=== PATIENT | male | born 1935 | race Caucasian/White ===

== ENCOUNTER 2018-05-09 04:19 | Inpatient (IN) | payer MEDICARE ==
[2018-05-09] VITALS (33 sets, daily range): BP systolic 89–163; BP diastolic 45–76; PULSE 91–114; RESP 12–29; TEMP 100–100.4; O2SAT 87–100
[~2018-05-09] VITALS: Ht 177.8 cm; Wt 109.4 kg
--- NOTE | 2018-05-09 04:25 | PD ---
HPI Chief Complaint: Code Blue Time Seen by Provider: 04:25 Travel History International Travel<30 days: No Contact w/Intl Traveler<30days: No Traveled to known affect area: No History of Present Illness HPI Patient was brought in by ambulance status post arrest from [facility], Combitube placed, unable to intubate, given ACLS drugs and got spontaneous ROSC and brought into [place]. No family at bedside unable to obtain any history due to condition of the patient... It is noted that the patient upon having Combitube placed had a lot of pink frothy sputum returning back into the Combitube. Although the patient seems to have been brought in from half-way I did not see list of diagnostics on this patient. Upon review of the chart that came with the patient it appears the patient has a history of dementia, rheumatoid arthritis, neuropathy, then based on medications such as timolol and latanoprost the patient is believed to have glaucoma, as well as hyper lipidemia patient also appears to have a history of skin fungal infection, is on methotrexate for the rheumatoid arthritis, the patient is also on Lunesta for insomnia, and appears to also be on a diuretic Lasix as well as potassium which leads me to believe that the patient may have a history of congestive heart failure or at least some sort of pulmonary edema or peripheral edema history for which this patient was placed on those medications by Dr. CAMARILLO [facility] Social History Tobacco Use: No (unknown due to patient condition) Allergies-Medications (Allergen,Severity, Reaction): Coded Allergies: Penicillins (Verified Allergy, Severe, 05/09/18) Reported Meds & Prescriptions Reported Meds & Active Scripts Active Reported Eszopiclone 2 Mg Tab 2 Mg PO HS PRN Buspirone (Buspirone HCl) 10 Mg Tab 20 Mg PO BID Potassium Chloride ER (Potassium Chloride) 10 Meq Tab 10 Meq PO DAILY Lasix (Furosemide) 20 Mg Tab 20 Mg PO DAILY Buspirone (Buspirone HCl) 5 Mg Tab 5 Mg PO BID PRN Methotrexate 2.5 Mg Tab 2.5 Mg PO Q7D Ketoconazole Topical 2% Cream 1 Applic TOPICAL BID Multiple Vitamin 1 Tab 1 Tab PO DAILY Memantine 10 Mg Tab 10 Mg PO BID Folic Acid 0.4 Mg Tab 1 Mg PO DAILY Timolol Opth Drops 0.5 % Soln 1 Drop EACH EYE DAILY Review of Systems ROS Limitations: Clinical Condition, Intubated Physical Exam Exam Limitations: Clinical Condition Narrative General: The patient is [status post arrest, comatose GCS of 3T-]. Head and Neck exam: Head is normocephalic atraumatic. Eyes: extraocular motion testing is unable to be accomplished as the patient arrives unresponsive, pupils are [4 mm bilaterally WITH PERRL]. Nose: Midline septum with pink mucous membranes Mouth: Dentition unremarkable. Moist mucus membranes. Posterior oropharynx is not erythematous. No tonsillar hypertrophy. Uvula midline. Airway patent with EMS Combitube in place Neck: No palpable lymphadenopathy. No nuchal rigidity. No thyromegaly. Cardiovascular: cardiac activity is auscultated. Lungs: Equal breath sounds bilaterally being assisted with [bilateral crackles-] . Abdomen: Distended obese abdomen without apparent tenderness to palpation in all 4 quadrants of the abdomen. No guarding, rebound, or rigidity. Extremities: No clubbing, cyanosis, bilateral lower extremity 2+ pitting edema edema. Neurologic Exam: The patient arrives with a GCS of [3T-]. Eyes [-1]. Motor [-1] . Verbal-1. Skin Exam: No rash noted. Intact skin that is warm and dry. Data Data Last Documented VS Vital Signs Date Time Temp Pulse Resp B/P (MAP) Pulse Ox O2 Delivery O2 Flow Rate FiO2 05/09/18 05:54 109 22 102/53 (69) 87 Ventilator 100 Orders Orders Complete Blood Count With Diff (05/09/18 04:27) Comprehensive Metabolic Panel (05/09/18 04:27) Ckmb (Isoenzyme) Profile (05/09/18 04:27) Troponin I (05/09/18 04:27) B-Type Natriuretic Peptide (05/09/18 04:27) Prothrombin Time / Inr (Pt) (05/09/18 04:27) Act Partial Throm Time (Ptt) (05/09/18 04:27) Arterial Blood Gas (Abg) (05/09/18 04:27) Lipase (05/09/18 04:27) Urinalysis - C+S If Indicated (05/09/18 04:27) Thyroid Stimulating Hormone (05/09/18 04:27) Chest, Single Ap (05/09/18 04:27) Ct Brain W/O Iv Contrast(Rout) (05/09/18 04:27) Iv Access Insert/Monitor (05/09/18 04:27) Ecg Monitoring (05/09/18 04:27) Oxygen Administration (05/09/18 04:27) Oximetry (05/09/18 04:27) Urinary Catheter Insert/Apply (05/09/18 04:27) Rafia-Gastric Tube Insert/Mon (05/09/18 04:27) Drug Screen, Random Urine (05/09/18 04:27) Alcohol (Ethanol) (05/09/18 04:27) Salicylates (Aspirin) (05/09/18 04:27) Tylenol (Acetaminophen) (05/09/18 04:27) Ct Abd/Pel W/O Iv Contrast (05/09/18 04:27) Sodium Bicarbonate 8.4% Inj (Sodium Bica (05/09/18 04:45) Propofol 1000 Mg/100 Ml Inj (Diprivan 10 (05/09/18 04:45) Dopamine 800 Mg/500 Ml Inj (Dopamine 800 (05/09/18 04:45) Terbutaline Inj (Brethine Inj) (05/09/18 04:45) Furosemide Inj (Lasix Inj) (05/09/18 05:00) Dopamine 400 Mg/250 Ml Inj (Dopamine 400 (05/09/18 04:59) CKMB (05/09/18 04:30) CKMB% (05/09/18 04:30) Admit Order (Ed Use Only) (05/09/18 06:05) Labs Laboratory Tests Test 05/09/18 04:30 05/09/18 04:50 White Blood Count 18.8 TH/MM3 Red Blood Count 3.30 MIL/MM3 Hemoglobin 11.2 GM/DL Hematocrit 36.1 % Mean Corpuscular Volume 109.5 FL Mean Corpuscular Hemoglobin 33.8 PG Mean Corpuscular Hemoglobin Concent 30.9 % Red Cell Distribution Width 16.3 % Platelet Count 284 TH/MM3 Mean Platelet Volume 9.9 FL Neutrophils (%) (Auto) 68.1 % Lymphocytes (%) (Auto) 23.2 % Monocytes (%) (Auto) 6.6 % Eosinophils (%) (Auto) 1.3 % Basophils (%) (Auto) 0.8 % Neutrophils # (Auto) 12.8 TH/MM3 Lymphocytes # (Auto) 4.4 TH/MM3 Monocytes # (Auto) 1.2 TH/MM3 Eosinophils # (Auto) 0.2 TH/MM3 Basophils # (Auto) 0.1 TH/MM3 CBC Comment AUTO DIFF Differential Total Cells Counted 100 Neutrophils % (Manual) 49 % Band Neutrophils % 18 % Lymphocytes % 22 % Monocytes % 7 % Eosinophils % 1 % Basophils % 1 % Neutrophils # (Manual) 13.0 TH/MM3 Metamyelocytes 1 % Myelocytes 1 % Differential Comment FINAL DIFF MANUAL Platelet Estimate NORMAL Platelet Morphology Comment ENLARGED Acanthocytes OCC Prothrombin Time 12.3 SEC Prothromb Time International Ratio 1.2 RATIO Activated Partial Thromboplast Time 38.3 SEC Urine Color YELLOW Urine Turbidity CLEAR Urine pH 5.0 Urine Specific [place] 1.014 Urine Protein 30 mg/dL Urine Glucose (UA) NEG mg/dL Urine Ketones TRACE mg/dL Urine Occult Blood SMALL Urine Nitrite NEG Urine Bilirubin NEG Urine Urobilinogen 2.0 mg/dL Urine Leukocyte Esterase NEG Urine RBC 1 /hpf Urine WBC 2 /hpf Urine Bacteria RARE /hpf Urine Hyaline Casts 1 /lpf Urine Granular Casts 1 /lpf Urine Mucus FEW /lpf Microscopic Urinalysis Comment CULT NOT INDICATED Blood Urea Nitrogen 23 MG/DL Creatinine 2.13 MG/DL Random Glucose 247 MG/DL Total Protein 5.6 GM/DL Albumin 2.5 GM/DL Calcium Level 8.2 MG/DL Alkaline Phosphatase 83 U/L Aspartate Amino Transf (AST/SGOT) 121 U/L Alanine Aminotransferase (ALT/SGPT) 80 U/L Total Bilirubin 0.7 MG/DL Sodium Level 141 MEQ/L Potassium Level 4.1 MEQ/L Chloride Level 105 MEQ/L Carbon Dioxide Level 14.5 MEQ/L Anion Gap 22 MEQ/L Estimat Glomerular Filtration Rate 30 ML/MIN Total Creatine Kinase 783 U/L Creatine Kinase MB 55.0 NG/ML Creatine Kinase MB % 7.0 % Troponin I 4.56 NG/ML B-Type Natriuretic Peptide 469 PG/ML Lipase 443 U/L Thyroid Stimulating Hormone 3rd Gen 3.630 uIU/ML Salicylates Level LESS THAN 1.7 MG/DL Urine Opiates Screen NEG Acetaminophen Level LESS THAN 2.0 MCG/ML Urine Barbiturates Screen NEG Urine Amphetamines Screen NEG Urine Benzodiazepines Screen NEG Urine Cocaine Screen NEG Urine Cannabinoids Screen NEG Ethyl Alcohol Level LESS THAN 3 MG/DL Blood Gas Puncture Site RT RADIAL Blood Gas Patient Temperature 98.6 Blood Gas HCO3 14 mmol/L Blood Gas Base Excess -15.4 mmol/L Blood Gas Oxygen Saturation 91 % Arterial Blood pH 6.98 Arterial Blood Partial Pressure CO2 64 mmHg Arterial Blood Partial Pressure O2 103 mmHG Arterial Blood Oxygen Content 14.9 Vol % Arterial Blood Carboxyhemoglobin 0.8 % Arterial Blood Methemoglobin 0.7 % Blood Gas Hemoglobin 11.5 G/DL Oxygen Delivery Device Y Blood Gas Inspired Oxygen 100 % [facility] Medical Decision Making Medical Screen Exam Complete: Yes Emergency Medical Condition: Yes Medical Record Reviewed: Yes Interpretation(s) EKG shows normal sinus rhythm, right bundle branch block with deep ST depressions noted on inferior lateral leads of 2 3 aVF V3 V4 V5 and V6. Without concomitant ST elevation on contralateral leads. ABG on AC 12 500 PEEP of 5 100% FiO2 showed a pH of 6.98, PCO2 of 64, PaO2 103... This is consistent with respiratory acidosis, this initial settings were set due to the patient's body habitus there was a thought of possible blue bloater COPD and did not want to cause barotrauma so instead decided for permissive hypoventilation rather than causing severe barotrauma and possible pneumothorax should this patient had been a COPD air. Once the ABG was reevaluated and noted to have respiratory acidosis with CO2 retention, the patient's parameters were changed to tidal volume of 600 and rate of 16 Differential Diagnosis MS versus bowel obstruction versus sepsis versus stroke versus intracranial hemorrhage Narrative Course Per my interpretation of the chest x-ray portable: Diffuse pulmonary edema, without pleural effusions noted, ET tube AND OG TUBE in appropriate place CBC shows leukocytosis of 18,000 however this is most likely reactive as there is no left shift No anemia however mAcrocytosis is noted Normal platelet count UA is not consistent with a UTI Coagulation profile was slightly abnormal with a PT of 12.3 INR 1.2 APTT of 38.3 Toxicology tests are all negative so far including alcohol as well as barbiturates opiates benzodiazepines and amphetamines cocaine and marijuana. Chemistry are multiple abnormalities starting with bicarb of 14 anion gap of 22 Renal insufficiency of possible chronic kidney disease, BUN of 23 creatinine of 2.13 and a GFR of 30 Glucose 247 AST 121 ALT 80 and lipase of 443 Currently awaiting troponin & beta natruretic peptide Critical Care Narrative CRITICAL CARE NOTE: With evaluation of the patient, labs, EKG, receipt of radiologic studies, administration of medications, reevaluation the patient and discussion of the patient with the admitting physicians, the total critical care time was [60] minutes. Time to perform other separately billable procedures was not included in the critical care time. Procedures Procedure Narrative The patient was put in optimal position for the procedure. Rapid sequence drugs were not necessary for intubation as the patient was post arrest. The patient was intubated with a [8CM] cuffed endotracheal tube. Tube placement was confirmed by visualization of the tube and balloon passing through the cords , capnometry and subsequent chest x-ray. Breath sounds were equal and well aerated bilaterally postintubation. No breath sounds over stomach. Approximately 22 cm at the lip Diagnosis Primary Impression: Status post cardiopulmonary arrest Additional Impressions: Status post intubation Severe congestive heart failure Admitting Information Admitting Physician Requests: Admit Cesar Napoles MD May 09, 2018 04:25
[2018-05-09] MEDS ORDERED: TERBUTALINE INJ 1 MG/ML AMP SQ PRN ×2 (04:45→11:30)
[2018-05-09] MEDS ORDERED: SODIUM BICARBONATE 8.4% INJ 50 MEQ/50 ML SYR IV PUSH ONE ×2 (04:45→06:30)
[2018-05-09] MEDS ORDERED: FOLI400T PO (04:55)
[2018-05-09] MEDS ORDERED: MULTTAB67 PO (04:55)
[2018-05-09] MEDS ORDERED: BUSP10TA PO (04:55)
[2018-05-09] MEDS ORDERED: MEMA1TAB2 PO (04:55)
[2018-05-09] MEDS ORDERED: ESZO1TAB3 PO (04:55)
[2018-05-09] MEDS ORDERED: KETO2CRE TOPICAL (04:55)
[2018-05-09] MEDS ORDERED: METH2.5T PO (04:55)
[2018-05-09] MEDS ORDERED: POTA10TA2 PO (04:55)
[2018-05-09] MEDS ORDERED: TIMO0.5S30 EACH EYE (04:55)
[2018-05-09] MEDS ORDERED: BUSP5TAB PO (04:55)
[2018-05-09] MEDS ORDERED: FURO1TAB62 PO (04:55)
[2018-05-09] MEDS: PROPOFOL 1000 MG/100 ML INJ 100 ML IV PRN ×3 (04:59→18:17)
[2018-05-09] MEDS ORDERED: DOPamine 400 MG/250 ML INJ 250 ML ONE (04:59)
--- NOTE | 2018-05-09 04:59 | RADRPT ---
EXAM DATE: 05/09/2018 4:52 AM EDT AGE/SEX: 82 years / Male INDICATIONS: Status post intubation. Shortness of breath. CLINICAL DATA: This is the patient's initial encounter. Patient reports that signs and symptoms have been present for 1 day and indicates a pain score of Nonresponsive. MEDICAL/SURGICAL HISTORY: Non-responsive. Non-responsive. COMPARISON: No prior exams available for comparison. FINDINGS: A single AP semierect portable view of the chest was obtained and demonstrates an endotracheal tube i n place with the tip approximately 3 cm above the alba. A nasogastric tube is seen coursing through the esophagus and into the stomach. Hazy perihilar and bibasilar opacities are present. The heart si ze is mildly prominent. There is no distinct effusion. The bony thorax is intact. CONCLUSION: 1. By lateral perihilar and bibasilar opacities most characteristic of pulmonary edema which may be cardiogenic or noncardiogenic in origin. 2. The patient is intubated and nasogastric tube is in place. Electronically signed by: Noah Barry MD 05/09/2018 4:58 AM EDT
[2018-05-09] MEDS ORDERED: FUROSEMIDE 100 MG/10 ML VIAL IV PUSH ONE (05:00)
[2018-05-09 05:04] LABS: AUTOMATED NEUTROPHIL # 12.8 TH/MM3 (1.8-7.7); BASOPHIL # 0.1 TH/MM3 (0-0.2); BASOPHIL % 0.8 % (0.0-2.0); EOSINOPHIL # 0.2 TH/MM3 (0-0.4); EOSINOPHIL % 1.3 % (0.0-4.0); HEMATOCRIT 36.1 % (39.0-51.0); HEMOGLOBIN 11.2 GM/DL (13.0-17.0); LYMPH % 23.2 % (9.0-44.0); LYMPHOCYTE # 4.4 TH/MM3 (1.0-4.8); MEAN CELL VOLUME 109.5 FL (80.0-100.0); MEAN CORPUSCULAR HEMOGLOBIN 33.8 PG (27.0-34.0); MEAN CORPUSCULAR HGB CONC 30.9 % (32.0-36.0); MEAN PLATELET VOLUME 9.9 FL (7.0-11.0); MONO % 6.6 % (0.0-8.0); MONOCYTE # 1.2 TH/MM3 (0-0.9); NEUT % 68.1 % (16.0-70.0); PLATELET COUNT 284 TH/MM3 (150-450); RED CELL DISTRIBUTION WIDTH 16.3 % (11.6-17.2); WHITE BLOOD COUNT 18.8 TH/MM3 (4.0-11.0)
[2018-05-09] MEDS: DOPamine 800 MG/500 ML INJ 500 ML IV PRN ×3 (05:05→16:04)
[2018-05-09 05:16] LABS: INTERNATIONAL NORMALIZED RATIO 1.2 RATIO; PROTHROMBIN TIME - PATIENT 12.3 SEC (9.8-11.6)
[2018-05-09 05:17] LABS: BACTERIA, URINE RARE /hpf; BILIRUBIN, URINE NEG (NEG); BLOOD, URINE SMALL (NEG); GLUCOSE,URINE NEG (NEG); HYALINE CAST, URINE 1 /lpf (RARE); KETONE, URINE TRACE mg/dL (NEG); MUCUS URINE FEW /lpf (OCC); NITRITE,URINE NEG (NEG); URINE COLOR YELLOW (YELLW/STRAW); URINE LEUKOCYTE ESTERASE NEG (NEG)
[2018-05-09 05:20] LABS: ALBUMIN 2.5 GM/DL (3.4-5.0); ALT (GPT) 80 U/L (12-78); AST (GOT) 121 U/L (15-37); BICARBONATE 14.5 MEQ/L (21.0-32.0); BLOOD UREA NITROGEN 23 MG/DL (7-18); CALCIUM 8.2 MG/DL (8.5-10.1); CHLORIDE 105 MEQ/L (98-107); CREATININE 2.13 MG/DL (0.60-1.30); GLOMERULAR FILTRATION RATE 30 ML/MIN (>89); GLUCOSE,RANDOM 247 MG/DL (74-106); SODIUM (NA) 141 MEQ/L (136-145)
[2018-05-09 05:29] LABS: ACETAMINOPHEN LESS THAN 2.0 MCG/ML (10.0-30.0); ALKALINE PHOSPHATASE 83 U/L (45-117); TOTAL BILIRUBIN ADULT 0.7 MG/DL (0.2-1.0); TOTAL PROTEIN 5.6 GM/DL (6.4-8.2)
[2018-05-09 05:45] LABS: TROPONIN I 4.56 NG/ML (0.02-0.05)
[2018-05-09 06:10] LABS: BANDS 18 % (0-6); BASOPHILS 1 % (0-2); LYMPHOCYTES 22 % (9-44); METAMYELOCYTES 1 % (0-1); MONOCYTES 7 % (0-8); MYELOCYTES 1 % (0-0); POLYS (SEG NEUTROPHILS) 49 % (16-70)
[2018-05-09 06:12] LABS: ACANTHOCYTES OCC (NORMAL)
[2018-05-09] MEDS ORDERED: LORazepam 2 MG/ML VIAL IV PUSH ONE ×2 (06:15→06:30)
[2018-05-09] MEDS ORDERED: CHLORHEXIDINE GLUCONATE 2 % 1 PACK (2 CLOTHS) TOP PRN (06:45)
[2018-05-09] MEDS ORDERED: levETIRAcetam INJ 100 ML IV ONE (06:45)
[2018-05-09] MEDS ORDERED: NURSING INFORMATION XX SCH (06:45)
[2018-05-09] MEDS ORDERED: Vancomycin Consult Pharmacy 1 EA OTHER SCH (06:45)
--- NOTE | 2018-05-09 07:09 | HHI.HP ---
HPI Service Critical Care Medicine Primary Care Physician Unknown Admission Diagnosis S/P ARREST W/ROSC, SEVERE CHF, S/P INTUBATION, NONSTEMI Diagnosis: Chief Complaint: Post cardiac arrest Travel History International Travel<30 Days: No Contact w/Intl Traveler <30 Da: No Traveled to Known Affected Are: No History of Present Illness 82-year-old gentleman, alf resident, now brought in post cardiac arrest. History is very limited and is obtained mostly from ER chart patient is intubated, sedated, unresponsive and there is no family present at bedside. Per report patient had PEA/asystolic arrest in the alf. It is unclear how long was the downtime. Patient underwent ACLS protocol and received received 4 epinephrine. Intubation was attempted in the field but it was unsuccessful therefore Combitube was placed. In ER patient was endotracheally intubated and upon intubation pink frothy were observed. He became hypotensive requiring dopamine. Patient was started on propofol and he was given so far 2 mg of Ativan for seizure-like activity, Lasix 80 mg 1 and 1 bicarb. [facility] is now consulted for ICU admission. Patient was seen in ED, sedated and intubated , currently displaying generalized tonic-clonic movements consistent with seizure versus myoclonus. No family present at bedside. Patient is currently on dopamine at 5, propofol at 10. Review of Systems ROS Limitations: Intubated, Unresponsive Past Family Social History Allergies: Coded Allergies: Penicillins (Verified Allergy, Severe, 05/09/18) Past Medical History Unobtainable, patient is intubated Based on ED chart RA, dementia, glaucoma, possible CHF Past Surgical History Unobtainable, patient is intubated Reported Medications Reported Meds & Active Scripts Active Reported Eszopiclone 2 Mg Tab 2 Mg PO HS PRN Buspirone (Buspirone HCl) 10 Mg Tab 20 Mg PO BID Potassium Chloride ER (Potassium Chloride) 10 Meq Tab 10 Meq PO DAILY Lasix (Furosemide) 20 Mg Tab 20 Mg PO DAILY Buspirone (Buspirone HCl) 5 Mg Tab 5 Mg PO BID PRN Methotrexate 2.5 Mg Tab 2.5 Mg PO Q7D Ketoconazole Topical 2% Cream 1 Applic TOPICAL BID Multiple Vitamin 1 Tab 1 Tab PO DAILY Memantine 10 Mg Tab 10 Mg PO BID Folic Acid 0.4 Mg Tab 1 Mg PO DAILY Timolol Opth Drops 0.5 % Soln 1 Drop EACH EYE DAILY Active Ordered Medications Current Medications Medications (Trade) Dose Ordered Sig/Yasmeen Route Start Time Stop Time Status Last Admin Propofol 100 ml @ 0 mls/hr TITRATE PRN IV 05/09/18 04:45 05/09/18 04:59 Dopamine HCl/ Dextrose 500 ml @ 0 mls/hr TITRATE PRN IV 05/09/18 04:45 05/09/18 05:05 (Brethine Inj) 1 mg UNSCH PRN SQ 05/09/18 04:45 Sodium Bicarbonate 150 meq/Dextrose 1,150 ml @ 100 mls/hr [id number] IV 05/09/18 08:00 Pharmacy Profile Note 0 ml @ 0 mls/hr UNSCH OTHER 05/09/18 06:45 Aztreonam 1000 mg/ Sodium Chloride 100 ml @ 200 mls/hr Q12H IV 05/09/18 08:00 Metronidazole 100 ml @ 100 mls/hr Q8H IV 05/09/18 08:00 Levetriacetam 500 mg/Sodium Chloride 105 ml @ 420 mls/hr Q12H IV 05/09/18 18:00 (Pepcid Inj) 20 mg DAILY IV PUSH 05/09/18 09:00 (Tears Naturale Opth Soln) 1 drop TID EACH EYE 05/09/18 09:00 (Duoneb Neb) 1 ampule Q4HR NEB INH 05/09/18 08:00 ([facility] [place] [facility] 1 [id number] XX 05/09/18 06:45 (Chlorhexidine 2% Cloth) 3 pack Taper DAILY@04 TOP 05/10/18 04:00 05/06/19 03:59 (Chlorhexidine 2% Cloth) 3 pack UNSCH PRN TOP 05/09/18 06:45 (Peridex 0.12% Liq) 15 ml BID@08,20 MT 05/09/18 08:00 Vancomycin HCl 1720 mg/Sodium Chloride 517.2 ml @ 250 mls/hr ONCE ONCE IV 05/09/18 09:00 05/09/18 11:04 Family History Unobtainable, patient is intubated Social History Unobtainable, patient is intubated Physical Exam Vital Signs Vital Signs Date Time Temp Pulse Resp B/P (MAP) Pulse Ox O2 Delivery O2 Flow Rate FiO2 05/09/18 06:56 107 24 99/53 (68) 94 Ventilator 100 05/09/18 06:38 98 100 05/09/18 06:34 114 23 98/54 (69) 99 Ventilator 100 05/09/18 06:20 111 20 105/45 (65) 93 Ventilator 100 05/09/18 05:54 109 22 102/53 (69) 87 Ventilator 100 05/09/18 05:50 88 100 05/09/18 05:44 106 22 104/51 (68) 88 Ventilator 100 05/09/18 05:23 100 05/09/18 05:20 102 22 120/59 (79) 94 Ventilator 100 05/09/18 05:09 104 16 125/60 (81) 96 Ventilator 100 05/09/18 05:05 95 100 05/09/18 05:05 106 131/62 05/09/18 04:42 100 05/09/18 04:39 12 95 Ventilator 100 05/09/18 04:39 95 Ventilator 100 05/09/18 04:38 98 16 159/75 (103) 95 Ventilator 100 05/09/18 04:30 97 12 98 Room Air 05/09/18 04:23 93 14 163/76 (105) 95 05/09/18 04:21 95 100 Physical Exam General: Elderly gentleman, intubated and sedated, unresponsive, ill-appearing HEENT: Pupils equal, sluggishly reactive, sclerae anicteric, neck supple, no nuchal rigidity, neck veins distended, orally intubated CV: Regular S1, S2, no murmurs Chest: Coarse breath sounds b/l, good air entry, no wheezes Abdomen: Soft, appears non-tender, non-distended, BS present Skin: No rashes, no cyanosis Extremities: Warm, 2+ edema, + peripheral pulses, no clubbing Neuro: Intubated and sedated, unresponsive, no grimacing to pain, pupils equal and sluggishly reactive, displaying tonic-clonic movements Laboratory Laboratory Tests Test 05/09/18 04:30 05/09/18 04:50 05/09/18 06:40 05/09/18 06:55 White Blood Count 18.8 Red Blood Count 3.30 Hemoglobin 11.2 Hematocrit 36.1 Mean Corpuscular Volume 109.5 Mean Corpuscular Hemoglobin 33.8 Mean Corpuscular Hemoglobin Concent 30.9 Red Cell Distribution Width 16.3 Platelet Count 284 Mean Platelet Volume 9.9 Neutrophils (%) (Auto) 68.1 Lymphocytes (%) (Auto) 23.2 Monocytes (%) (Auto) 6.6 Eosinophils (%) (Auto) 1.3 Basophils (%) (Auto) 0.8 Neutrophils # (Auto) 12.8 Lymphocytes # (Auto) 4.4 Monocytes # (Auto) 1.2 Eosinophils # (Auto) 0.2 Basophils # (Auto) 0.1 CBC Comment AUTO DIFF Differential Total Cells Counted 100 Neutrophils % (Manual) 49 Band Neutrophils % 18 Lymphocytes % 22 Monocytes % 7 Eosinophils % 1 Basophils % 1 Neutrophils # (Manual) 13.0 Metamyelocytes 1 Myelocytes 1 Differential Comment FINAL DIFF MANUAL Platelet Estimate NORMAL Platelet Morphology Comment ENLARGED Acanthocytes OCC Prothrombin Time 12.3 Prothromb Time International Ratio 1.2 Activated Partial Thromboplast Time 38.3 Urine Color YELLOW Urine Turbidity CLEAR Urine pH 5.0 Urine Specific [place] 1.014 Urine Protein 30 Urine Glucose (UA) NEG Urine Ketones TRACE Urine Occult Blood SMALL Urine Nitrite NEG Urine Bilirubin NEG Urine Urobilinogen 2.0 Urine Leukocyte Esterase NEG Urine RBC 1 Urine WBC 2 Urine Bacteria RARE Urine Hyaline Casts 1 Urine Granular Casts 1 Urine Mucus FEW Microscopic Urinalysis Comment CULT NOT INDICATED Blood Urea Nitrogen 23 Creatinine 2.13 Random Glucose 247 Total Protein 5.6 Albumin 2.5 Calcium Level 8.2 Alkaline Phosphatase 83 Aspartate Amino Transf (AST/SGOT) 121 Alanine Aminotransferase (ALT/SGPT) 80 Total Bilirubin 0.7 Sodium Level 141 Potassium Level 4.1 Chloride Level 105 Carbon Dioxide Level 14.5 Anion Gap 22 Estimat Glomerular Filtration Rate 30 Total Creatine Kinase 783 Creatine Kinase MB 55.0 Creatine Kinase MB % 7.0 Troponin I 4.56 B-Type Natriuretic Peptide 469 Lipase 443 Thyroid Stimulating Hormone 3rd Gen 3.630 Salicylates Level LESS THAN 1.7 Urine Opiates Screen NEG Acetaminophen Level LESS THAN 2.0 Urine Barbiturates Screen NEG Urine Amphetamines Screen NEG Urine Benzodiazepines Screen NEG Urine Cocaine Screen NEG Urine Cannabinoids Screen NEG Ethyl Alcohol Level LESS THAN 3 Blood Gas Puncture Site RT RADIAL Blood Gas Patient Temperature 98.6 Blood Gas HCO3 14 Blood Gas Base Excess -15.4 Blood Gas Oxygen Saturation 91 Arterial Blood pH 6.98 Arterial Blood Partial Pressure CO2 64 Arterial Blood Partial Pressure O2 103 Arterial Blood Oxygen Content 14.9 Arterial Blood Carboxyhemoglobin 0.8 Arterial Blood Methemoglobin 0.7 Blood Gas Hemoglobin 11.5 Oxygen Delivery Device Y Blood Gas Inspired Oxygen 100 Result Diagram: 05/09/1842905/09/18429 Imaging Last Impressions Chest X-Ray 05/09/18426 Signed Impressions: CONCLUSION: 1. By lateral perihilar and bibasilar opacities most characteristic of pulmona ry edema which may be cardiogenic or noncardiogenic in origin. 2. The patient is intubated and nasogastric tube is in place. Caprini VTE Risk Assessment Caprini VTE Risk Assessment: Mod/High Risk (score >= 2) Caprini Risk Assessment Model Point Value = 1 Point Value = 2 Point Value = 3 Point Value = 5 Age 41-60 Minor surgery BMI > 25 kg/m2 Swollen legs Varicose veins or History of unexplained or recurrent spontaneous Oral contraceptives or hormone replacement Sepsis (< 1 month) Serious lung disease, including pneumonia (< 1 month) Abnormal pulmonary function Acute myocardial infarction Congestive heart failure (< 1 month) History of inflammatory bowel disease Medical patient at bed rest Age 61-74 Arthroscopic surgery Major open surgery (> 45 min) Laparoscopic surgery (> 45 min) Malignancy Confined to bed (> 72 hours) Immobilizing plaster cast Central venous access Age >= 75 History of VTE Family history of VTE Factor V Leiden Prothrombin [id number] Lupus anticoagulant Anticardiolipin antibodies Elevated serum homocysteine Heparin-induced thrombocytopenia Other congenital or acquired thrombophilia Stroke (< 1 month) Elective arthroplasty Hip, pelvis, or leg fracture Acute spinal cord injury (< 1 month) Prophylaxis Regimen Total Risk Factor Score Risk Level Prophylaxis Regimen 0-1 Low Early ambulation 2 Moderate Order ONE of the following: *Sequential Compression Device (SCD) *Heparin 5000 units SQ BID 3-4 Higher Order ONE of the following medications: *Heparin 5000 units SQ TID *Enoxaparin/Lovenox 40 mg SQ daily (WT < 150 kg, CrCl > 30 mL/min) *Enoxaparin/Lovenox 30 mg SQ daily (WT < 150 kg, CrCl > 10-29 mL/min) *Enoxaparin/Lovenox 30 mg SQ BID (WT < 150 kg, CrCl > 30 mL/min) AND/OR *Sequential Compression Device (SCD) 5 or more Highest Order ONE of the following medications: *Heparin 5000 units SQ TID (Preferred with Epidurals) *Enoxaparin/Lovenox 40 mg SQ daily (WT < 150 kg, CrCl > 30 mL/min) *Enoxaparin/Lovenox 30 mg SQ daily (WT < 150 kg, CrCl > 10-29 mL/min) *Enoxaparin/Lovenox 30 mg SQ BID (WT < 150 kg, CrCl > 30 mL/min) AND *Sequential Compression Device (SCD) Assessment and Plan Assessment and Plan 1. Post cardiac arrest with successful ROSC -unclear what was the down time 2. Acute hypoxic and hypercapnic respiratory failure 3. Circulatory shock 4. Probable pulmonary edema 5. Acute AG metabolic acidosis and respiratory acidosis 6. Non STEMI 7. Leukocytosis, need to rule out source of infection 8. Acute encephalopathy with concern for anoxic injury note displaying generalized tonic-clonic movements, suspect myoclonus versus seizure 9. Elevated liver enzymes 10. CONNOR 11. History of dementia 1. Admit to ICU 2. Place central line. Check CVP and CVO2 3. Stop dopamine and start norepinephrine, titrate to keep map above 65 4. Continue PRVC, decreased volume to 500 increased respiratory rate 20 and repeat ABG in 30 minutes 5. Vent bundle and bronchodilators 6. Additional lorazepam and load with Keppra 1000 mg followed by 500 every [address] head 8. EEG 9. Serial cardiac enzymes and echocardiogram 10. Cardiology consult 11. If CT head negative we will start aspirin 12. UA and blood cultures sent. Send sputum culture. Start broad-spectrum antibiotics with Vanco, aztreonam and metronidazole. Patient is allergic to penicillin, unknown reaction 13. Additional bicarb push being given now. Start bicarb drip. Nephrology consult for possible CRRT 14. N.p.o. 15. GI prophylaxis with famotidine 16. DVT prophylaxis with SCDs and heparin if CT head negative I spent 50 minutes of critical care time, excluding procedures, managing ventilator, pressors, antibiotics, severe acidosis, ordering labs and reviewing data, discussing with nursing staff. No family present at bedside. Prognosis is poor. Addendum: Patient was seen multiple times throughout the morning, with worsening hypotension, on Dopamine at 17. Patient still with seizure like activity despite additional lorazepam and Keppra. EEG was done. Patient was given additional ativan, propofol drip was increased to 50, midazolam drip was added and fosphenytoin loading was ordered. Emergent arterial line and central line were placed. Norepinephrine was started and dopamine is currently being weaned off. ABG and troponin were ordered, CT head was reviewed, aspirin was added to treatment. No statin due to liver inefficiency and no BB due to shock. CXR post line placement is currently pending. I discussed in detail patient's critical condition at bedside with patient's daughter and POA. Based on patient's prior wishes expressed to her, he would not want to be resuscitated in case his heart stops again. We will comply to patient's wishes expressed by his daughter and place an alternative code order. We discussed about continuing aggressive measures for now and she agrees. I spent an additional 45 minutes of critical care time, excluding procedures, managing life threatening hypoxia, shock, status epilepticus. Jose Webb MD May 09, 2018 07:09
[2018-05-09] MEDS: RESP: ALBUTEROL 2.5 MG/IPRATROPIUM 0.5 MG NEB (SCH) INH ×5 (07:32→23:48)
[2018-05-09 07:41] LABS: LACTIC ACID SEPSIS PROTOCOL 8.4 mmol/L (0.4-2.0)
[2018-05-09] MEDS: CHLORHEXIDINE 0.12% (ORAL KIT) 15 ML CUP MT SCH ×2 (08:00→20:00)
[2018-05-09] MEDS ORDERED: SODIUM BICARBONATE 8.4% INJ 150 MEQ in DEXTROSE 5% IN WATE 1000ML INJ 1,000 ML IV SCH ×2 (08:00)
[2018-05-09] MEDS: AZTREONAM INJ 1,000 MG in SODIUM CHLORIDE 0.9% INJ 100 ML IV SCH ×2 (08:11→21:04)
[2018-05-09] MEDS: metroNIDAZOLE 500 MG INJ 100 ML IV SCH ×3 (08:40→23:34)
[2018-05-09] MEDS: FAMOTIDINE 20 MG/2 ML VIAL IV PUSH SCH (08:41)
[2018-05-09] MEDS: ARTIFICIAL TEARS OPTH SOLN 15 ML BTL EACH EYE SCH ×3 (09:00→18:00)
[2018-05-09] MEDS ORDERED: VANCOMYCIN IV ONE (09:00)
[2018-05-09] MEDS ORDERED: SODIUM CHLORID 0.9% IV ONE (09:00)
--- NOTE | 2018-05-09 09:16 | EKG ---
Date Performed: 05/09/2018 Time Performed: 04:32:52 PTAGE: 82 years EKG: Sinus rhythm RIGHT BUNDLE BRANCH BLOCK MARKED ST DEPRESSION, CONSIDER SUBENDOCARDIAL INJURY ABNORMAL ECG NO PREVIOUS TRACING DOCTOR: Ananda Peter Interpretating Date/Time 05/09/2018 09:13:44
--- NOTE | 2018-05-09 09:37 | MB ---
cc: Dayo Huynh MD DATE: 05/09/2018 REASON FOR CONSULTATION: Elevated troponin, status post arrest. HISTORY OF PRESENT ILLNESS: When I arrived at the bedside, the daughter was there. She was able to tell me the patient has a history of Alzheimer's dementia. His just 6 weeks ago. He also carries a diagnosis of congestive heart failure. She is not aware of him ever having a heart cath, bypass, stent before. She was just walking on the beach with him a few days ago. The patient has expressed wishes to her to not have aggressive therapy. She had just moved him to [facility] about a month ago. He has not established care with any licensed psychologist manager in [place]. The patient was brought in status post cardiac arrest with successful resuscitation. The patient is unresponsive and it looks as if he is seizing so no history can be obtained from him. PAST MEDICAL HISTORY: Beside CHF and Alzheimer's, includes glaucoma, rheumatoid arthritis, neuropathy. ALLERGIES: INCLUDE PENICILLIN. PHYSICAL EXAMINATION: GENERAL: Reveals an elderly white male. VITAL SIGNS: Charted. GENERAL: His eyes are rolled back. It looks like he is having intermittent seizure movements and is being treated for seizures currently. He is completely unresponsive. HEENT: Unremarkable. NECK: No rigidity. No carotid bruits. CHEST: Shows bilateral rales. CARDIAC: S1, S2. Regular rate and rhythm. Suspect an S3 gallop. ABDOMEN: Distended. No guarding. EXTREMITIES: Reveal 2+ pitting edema. LABORATORY DATA: EKG shows sinus rhythm, right axis deviation, right bundle branch block and a diffuse, severe ST depression suggesting global ischemia. His cardiac enzymes are clearly elevated. white count is elevated with a left shift. Creatinine is elevated at 2.13. Chest x-ray showing pulmonary edema. ASSESSMENT AND PLAN: An 82-year-old elderly male with history of congestive heart failure and Alzheimer's, status post cardiac arrest with severe anoxic encephalopathy, seizures, a severely abnormal electrocardiogram, non-ST elevation myocardial infarction, pulmonary edema, renal insufficiency. RECOMMENDATIONS: In speaking to the daughter, Steffany, she conveys that the patient would not want to be resuscitated and wants to have him made a DNR. Prognosis is poor. The patient has already received IV diuretics and is being moved to ICU. I would not expect the patient to survive this event and she does not want aggressive measures taken. The predictive maintenance specialist will be managing. At this point, I will be available as needed. MD JORGE Moura/CELESTINO , 09:14 AM , 09:35 AM
[2018-05-09] MEDS ORDERED: LORazepam 2 MG/ML VIAL ONE (10:12)
--- NOTE | 2018-05-09 10:35 | RADRPT ---
EXAM DATE: 05/09/2018 10:29 AM EDT AGE/SEX: 82 years / Male INDICATIONS: Altered mental status, post cardiac arrest. CLINICAL DATA: This is the patient's initial encounter. Patient reports that signs and symptoms have been present for 1 day and indicates a pain score of Nonresponsive. MEDICAL/SURGICAL HISTORY: Non-responsive. Non-responsive. RADIATION DOSE: 63.56 CTDI (mGy) ; Patient motion COMPARISON: No prior exams available for comparison. TECHNIQUE: CT of the head without contrast. Using automated exposure control and adjustment of the mA and/or kV according to patient size, radiation dose was kept as low as reasonably achievable to ob tain optimal diagnostic quality images. Moderate motion artifact. FINDINGS: There is central and cortical atrophy with dilatation of ventricular and sulcal spaces. There is no parenchymal hemorrhage, acute infarction or mass lesion identified. There are no extra-axial fluid c ollections appreciated. Periventricular white matter changes are noted. The posterior fossa is unrem arkable with midline fourth ventricle. The portion of the orbits and paranasal sinuses visualized are unremarkable. CONCLUSION: Atrophy, with moderate motion artifact otherwise negative for an acute process. Juanjo Rodriguez MD FACR Electronically signed by: Juanjo Rodriguez MD 05/09/2018 10:33 AM EDT
--- NOTE | 2018-05-09 10:37 | RADRPT ---
EXAM DATE: 05/09/2018 10:32 AM EDT AGE/SEX: 82 years / Male INDICATIONS: Distended abdomen following cardiac arrest. CLINICAL DATA: This is the patient's initial encounter. Patient reports that signs and symptoms have been present for 1 day and indicates a pain score of Nonresponsive. MEDICAL/SURGICAL HISTORY: Non-responsive. Non-responsive. RADIATION DOSE: 16.37 CTDI (mGy) COMPARISON: No prior exams available for comparison. TECHNIQUE: Multiple contiguous axial images were obtained through the abdomen. Images were obtained using multiple row detector helical technique. Using dose reduction techniques, radiation dose was ke pt as low as reasonably achievable to obtain optimal diagnostic quality images. FINDINGS: Moderate bibasilar parenchymal changes with consolidation and airspace disease in the right lung. Moderate compensated cardiomegaly The liver is free of focal defects Large gallstone in neck of the gallbladder and gallbladder wall thickening Spleen pancreas adrenals and kidneys are unremarkable Moderate gaseous distention of both large and small bowel. There is no free air In the pelvis are scattered diverticuli in the sigmoid colon. There are no inflammatory changes evident Moderate vascular calcifications are noted. CONCLUSION: 1. Bibasilar parental changes developing airspace disease right lung 2. There is no pneumothorax 3. Moderate gaseous distention of probably: Without obstruction. 4. There are no inflammatory changes in the abdomen 5. Gallstone, neck of the gallbladder gallbladder wall thickening Electronically signed by: Juanjo Rodriguez MD 05/09/2018 10:35 AM EDT
[2018-05-09] MEDS: NOREPINEPHRINE-DEXTROSE DRIP 250 ML IV PRN ×4 (10:45→22:37)
[2018-05-09] MEDS ORDERED: VANCOMYCIN 1,000 MG/NS 250 ML IV ONE ×2 (11:00)
[2018-05-09] MEDS ORDERED: FOSPHENYTOIN INJ 1,500 MGPE in SODIUM CHLORIDE 0.9% INJ 100 ML IV ONE (11:30)
[2018-05-09] MEDS ORDERED: MIDAZOLAM 100 MG/100 ML INJ 100 ML IV PRN (11:30)
--- NOTE | 2018-05-09 11:57 | PD.PROCEDR ---
Procedure Note Procedure Procedure: Arterial Line Placement Diagnosis: Circulatory shock Indications: Hypotension Consent: Not obtained since the procedure was emergent Description of the Procedure: The right radial area was prepped and draped sterilely. 1% lidocaine was used for local anesthesia. The pulse was located and a needle was advanced into the artery. An arterial catheter was advanced into the artery using a modified Seldinger technique. The catheter was sutured to the skin and a sterile dressing was applied. The catheter was connected to a pressure transducer and an arterial waveform was noted. There were no immediate complications noted. There was minimal EBL. I personally performed the procedure. Jose Webb MD May 09, 2018 11:57
[2018-05-09] MEDS ORDERED: ASPIRIN 81 MG CHEW TAB NG ONE (12:00)
--- NOTE | 2018-05-09 12:40 | RADRPT ---
EXAM DATE: 05/09/2018 12:32 PM EDT AGE/SEX: 82 years / Male INDICATIONS: Post central line placement. CLINICAL DATA: This is the patient's subsequent encounter. Patient reports that signs and symptoms h ave been present for 3 days and indicates a pain score of Nonresponsive. MEDICAL/SURGICAL HISTORY: Cardiovascular disease. Non-responsive. COMPARISON: [facility] – [place], CHEST SINGLE AP, 05/09/2018. . FINDINGS: The support devices remain in place. There is a new right-sided central line which appears to be in g ood position. There is no pneumothorax. There continues to be diffuse prominent interstitial and airs pace pulmonary infiltrates without significant change compared to the prior examination. The heart si ze is stable. No significant pleural effusions are demonstrated. CONCLUSION: 1. Right-sided central line in place. No pneumothorax. 2. There continues to be bilateral interstitial and airspace pulmonary infiltrates. Electronically signed by: Turner Gamboa MD 05/09/2018 12:39 PM EDT
[2018-05-09] MEDS: SODIUM CHLOR 0.9% 1000 ML INJ 1,000 ML IV SCH (13:06)
--- NOTE | 2018-05-09 13:20 | PD.CONS ---
Consult Service Palliative Care . Consult Requested By Dr. Webb . Primary Care Physician Unknown . Reason for Consultation a. To assist with evaluation and management of symptoms including: Encephalopathy b. To assist medical decision maker(s) with: better understanding of current medical conditions; weighing benefits/burdens of medical treatment options; making medical treatment decisions. . HPI History of Present Illness Mr. Meeks is a 82-year-old male [place] resident who presented to [facility] ED on 05/09/2018 status post PEA/asystole arrest. The length of downtime is unknown. Patient underwent ACLS protocol, receiving epi 4. Attempts to intubate in the field were unsuccessful, therefore a Combitube was placed with pink frothy sputum noted. Upon arrival to the ED the patient was intubated. The patient became hypotensive and was started on dopamine. An arterial and central line were placed. Additional diagnostic data: * Vital signs: Pulse 93, respirations 14, BP 163/76, oxygen saturation 95% on mechanical ventilation with FiO2 of 100%. * WBC: 18.8, hemoglobin 11.2, hematocrit 36.1, platelets 284, neutrophils 68.1% * Sodium: 141, potassium 4.1, chloride 105, glucose 247, calcium 8.2 * BUN: 23, creatinine 2.13, GFR 30 * Total bilirubin: 0.7, AST 121, ALT 80, alkaline phosphatase 83 * Total creatine kinase: 783 * CK-MB: 55.0 * CK-MB%: 7.0 * BNP was elevated at 469 * Troponin level elevated at 4.56. * Total protein: 5.6, albumin 2.5 * PT: 12.3, INR 1.2, APTT 38.3 * Urinalysis not consistent with UTI * Sputum culture pending * EKG shows sinus rhythm, right axis deviation, right bundle branch block and a diffuse, severe ST depression suggesting global ischemia * CT abdomen/pelvis showing moderate bibasilar parenchymal changes with consolidation and airspace disease in the right lung; moderate compensated cardiomegaly. There is no pneumothorax. Moderate gaseous distention of the large and small bowel without obstruction. There are no inflammatory changes in the abdomen. * Chest x-ray showing pulmonary edema * CT head revealed atrophy, with moderate motion artifact otherwise negative for an acute process. Patient displaying generalized tonic-clonic movements consistent with seizures versus myoclonus. Received Ativan for seizure-like activity; Lasix 80 mg 1; bicarb 1. He was was admitted to critical care services and transferred to the ICU status post cardiac arrest with severe anoxic encephalopathy, seizures, severely abnormal electrocardiogram, non-ST elevation myocardial infarction, pulmonary edema and renal insufficiency. Patient recently moved to [place]; his just 6 weeks ago. Cardiology was consulted and spoke to the patient's daughter (Steffany) who stated she has had previous conversations with her father and he told her that he would not want life prolonging procedures in this type of situation. She would like to honor his previously expressed wishes and does not want aggressive measures taken. Palliative Care was consulted to assist with symptom management and to discuss with the family the benefits and burdens of her current illnesses and the options regarding future care. . Function/Cognitive Trajectory Per daughter, patient moved to [place] approximately 1 month ago and was residing at [facility] in [place]. Patient was independent with all ADLs but had some short term memory issues and there were concerns for safety 2/2 wandering. Patient's daughter states she was walking on the beach with him a few days ago. . Review of Systems ROS Limitations: Clinical Condition, Intubated, Altered Mental Status Cardiovascular: COMPLAINS OF: Lower Extremity Edema Neurologic: COMPLAINS OF: Seizures Past Family Social History Coded Allergies: Penicillins (Verified Allergy, Severe, 05/09/18) Past Medical History Dementia Toward arthritis Neuropathy Glaucoma Hyperlipidemia CHF? . Past Surgical History Orthopedic surgery . Reported Medications Eszopiclone 2 Mg Tab 2 Mg PO HS PRN Buspirone (Buspirone HCl) 10 Mg Tab 20 Mg PO BID Potassium Chloride ER (Potassium Chloride) 10 Meq Tab 10 Meq PO DAILY Lasix (Furosemide) 20 Mg Tab 20 Mg PO DAILY Buspirone (Buspirone HCl) 5 Mg Tab 5 Mg PO BID PRN Methotrexate 2.5 Mg Tab 2.5 Mg PO Q7D Ketoconazole Topical 2% Cream 1 Applic TOPICAL BID Multiple Vitamin 1 Tab 1 Tab PO DAILY Memantine 10 Mg Tab 10 Mg PO BID Folic Acid 0.4 Mg Tab 1 Mg PO DAILY Timolol Opth Drops 0.5 % Soln 1 Drop EACH EYE DAILY . Current Medications Medications (Trade) Dose Ordered Sig/Yasmeen Route Start Time Stop Time Status Last Admin Propofol 100 ml @ 0 mls/hr TITRATE PRN IV 05/09/18 04:45 05/09/18 04:59 Dopamine HCl/ Dextrose 500 ml @ 0 mls/hr TITRATE PRN IV 05/09/18 04:45 05/09/18 09:26 (Brethine Inj) 1 mg UNSCH PRN SQ 05/09/18 04:45 Pharmacy Profile Note 0 ml @ 0 mls/hr UNSCH OTHER 05/09/18 06:45 Aztreonam 1000 mg/ Sodium Chloride 100 ml @ 200 mls/hr Q12H IV 05/09/18 08:00 05/09/18 08:11 Metronidazole 100 ml @ 100 mls/hr Q8H IV 05/09/18 08:00 05/09/18 08:40 Levetriacetam 500 mg/Sodium Chloride 105 ml @ 420 mls/hr Q12H IV 05/09/18 18:00 (Pepcid Inj) 20 mg DAILY IV PUSH 05/09/18 09:00 05/09/18 08:41 (Tears Naturale Opth Soln) 1 drop TID EACH EYE 05/09/18 09:00 (Duoneb Neb) 1 ampule Q4HR NEB INH 05/09/18 08:00 05/09/18 07:32 ([facility]) 1 [id number] XX 05/09/18 06:45 (Chlorhexidine 2% Cloth) 3 pack Taper DAILY@04 TOP 05/10/18 04:00 05/06/19 03:59 (Chlorhexidine 2% Cloth) 3 pack UNSCH PRN TOP 05/09/18 06:45 (Peridex 0.12% Liq) 15 ml BID@08,20 MT 05/09/18 08:00 Midazolam HCl 100 ml @ 2 mls/hr TITRATE PRN IV 05/09/18 11:30 Norepinephrine Bitartrate 250 ml @ 7.5 mls/hr TITRATE PRN IV 05/09/18 11:30 (Brethine Inj) 1 mg UNSCH PRN SQ 05/09/18 11:30 (Aspirin Chew) 81 mg DAILY CHEW 05/10/18 09:00 Sodium Chloride 1,000 ml @ 84 mls/hr [id number] IV 05/09/18 13:00 . Family History Sister had Crohn's; brother in his 50s from complications related to Lupus. . Substance Use Tobacco: None known Alcohol: None known Prescription med abuse: None known Illicits: None known . Psychosocial History Patient was born and raised in [place]. 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 He was to his , Naomi, for approximately 58 years. She 6 weeks ago from complications related to CHF. Together they had 5 children (Pietro, Corey, Jarad, Samm, Tai and Steffany ). Patient's 5 sons live in [place], and his daughter lives locally. The patient moved to [place] approximately 4 weeks ago and has been residing at [facility] in [place]. . Spiritual/Cultural Factors Gnosticist anjel . Health Care Surrogate: Copy in medical record Durable Power of Vice President Of Procurement: Copy in medical record Date completed: 02/22/2015 . Health Care Surrogate(s): Patient's daughter, Steffany Sexton, is the designated healthcare surrogate decision-maker. . Documented care wishes: Patient has designated his daughter, Steffany Sexton, as his POA and healthcare surrogate decision maker. . . Today's verbally stated goals: Given patient's clinical condition, he is unable to participate in establishing medical treatment goals. . Family/friends goals: Patient's daughter tearfully states that she has had multiple conversations with her father in which she clearly stated that, given his age and multiple comorbid conditions, he would not want extended, life prolonging interventions. Had a lengthy discussion about the process of cardiopulmonary resuscitation. Patient is currently intubated; patient's daughter states that in the event he was inadvertently extubated she does not want him to be reintubated. CODE STATUS changed to NO CODE. . . Ethical and Legal Issues No known ethical or legal issues at this time. Physical Exam Vital Signs Date Time Temp Pulse Resp B/P (MAP) Pulse Ox O2 Delivery O2 Flow Rate FiO2 05/09/18 11:46 100 100 05/09/18 10:33 92 18 124/60 (81) 99 Ventilator 05/09/18 10:30 100 100 05/09/18 10:19 98 24 99 Ventilator 100 05/09/18 10:00 98 24 110/51 (70) 100 Ventilator 100 05/09/18 09:26 89 103/51 05/09/18 09:00 96 22 100/51 (67) 100 Ventilator 100 05/09/18 08:30 104 24 98/46 (63) 100 Ventilator 05/09/18 08:00 97 18 89/53 (65) 100 Ventilator 100 05/09/18 07:29 97 100 05/09/18 07:00 108 25 112/53 (72) 100 Ventilator 100 05/09/18 06:56 107 24 99/53 (68) 94 Ventilator 100 05/09/18 06:38 98 100 05/09/18 06:34 114 23 98/54 (69) 99 Ventilator 100 05/09/18 06:20 111 20 105/45 (65) 93 Ventilator 100 05/09/18 05:54 109 22 102/53 (69) 87 Ventilator 100 05/09/18 05:50 88 100 05/09/18 05:44 106 22 104/51 (68) 88 Ventilator 100 05/09/18 05:23 100 05/09/18 05:20 102 22 120/59 (79) 94 Ventilator 100 05/09/18 05:09 104 16 125/60 (81) 96 Ventilator 100 05/09/18 05:05 95 100 05/09/18 05:05 106 131/62 05/09/18 04:42 100 05/09/18 04:39 12 95 Ventilator 100 05/09/18 04:39 95 Ventilator 100 05/09/18 04:38 98 16 159/75 (103) 95 Ventilator 100 05/09/18 04:30 97 12 98 Room Air 05/09/18 04:23 93 14 163/76 (105) 95 05/09/18 04:21 95 100 . Exam CONSTITUTIONAL/GENERAL: This is an elderly male patient who is currently intubated on mechanical ventilation, requiring pressor support. TUBES/LINES/DRAINS: PIV 2, ETT, OGT, Right IJ CVL, Right arterial line, Ramírez catheter SKIN: No jaundice, rashes, or lesions. Generalized pallor. During noted on right arm.. Skin temperature appropriate. Not diaphoretic. HEAD: Atraumatic. Normocephalic. EYES: Pupils equal and round and reactive. Extraocular motions intact. No scleral icterus. No injection or drainage. Fundi not examined. ENT: Unable to assess hearing. Nose without bleeding or purulent drainage. Unable to visualize throat secondary to tubes. NECK: Trachea midline. Supple, nontender. No palpable thyroid enlargement or nodularity. CARDIOVASCULAR: Regular rate and rhythm. No JVD. Peripheral pulses symmetric. RESPIRATORY/CHEST: Intubated on mechanical ventilation. FiO2 75%. Coarse air exchange bilaterally. GASTROINTESTINAL: Abdomen soft, non-tender, nondistended. Bowel sounds present. GENITOURINARY: Without palpable bladder distension. Ramírez catheter in place. MUSCULOSKELETAL: Extremities without clubbing or cyanosis. 2+ edema in lower extremities bilaterally. LYMPHATICS: No palpable cervical or supraclavicular adenopathy. NEUROLOGICAL: Sedated on Propofol and Versed; unresponsive. Displaying tonic- clonic movements PSYCHIATRIC: Unable to assess given current clinical condition. . Diagnostic Tests Laboratory Laboratory Tests Test 05/09/18 04:30 05/09/18 04:50 05/09/18 06:40 05/09/18 06:55 White Blood Count 18.8 TH/MM3 (4.0-11.0) Red Blood Count 3.30 MIL/MM3 (4.50-5.90) Hemoglobin 11.2 GM/DL (13.0-17.0) Hematocrit 36.1 % (39.0-51.0) Mean Corpuscular Volume 109.5 FL (80.0-100.0) Mean Corpuscular Hemoglobin 33.8 PG (27.0-34.0) Mean Corpuscular Hemoglobin Concent 30.9 % (32.0-36.0) Red Cell Distribution Width 16.3 % (11.6-17.2) Platelet Count 284 TH/MM3 (150-450) Mean Platelet Volume 9.9 FL (7.0-11.0) Neutrophils (%) (Auto) 68.1 % (16.0-70.0) Lymphocytes (%) (Auto) 23.2 % (9.0-44.0) Monocytes (%) (Auto) 6.6 % (0.0-8.0) Eosinophils (%) (Auto) 1.3 % (0.0-4.0) Basophils (%) (Auto) 0.8 % (0.0-2.0) Neutrophils # (Auto) 12.8 TH/MM3 (1.8-7.7) Lymphocytes # (Auto) 4.4 TH/MM3 (1.0-4.8) Monocytes # (Auto) 1.2 TH/MM3 (0-0.9) Eosinophils # (Auto) 0.2 TH/MM3 (0-0.4) Basophils # (Auto) 0.1 TH/MM3 (0-0.2) CBC Comment AUTO DIFF Differential Total Cells Counted 100 Neutrophils % (Manual) 49 % (16-70) Band Neutrophils % 18 % (0-6) Lymphocytes % 22 % (9-44) Monocytes % 7 % (0-8) Eosinophils % 1 % (0-4) Basophils % 1 % (0-2) Neutrophils # (Manual) 13.0 TH/MM3 (1.8-7.7) Metamyelocytes 1 % (0-1) Myelocytes 1 % (0-0) Differential Comment FINAL DIFF MANUAL Platelet Estimate NORMAL (NORMAL) Platelet Morphology Comment ENLARGED (NORMAL) Acanthocytes OCC (NORMAL) Prothrombin Time 12.3 SEC (9.8-11.6) Prothromb Time International Ratio 1.2 RATIO Activated Partial Thromboplast Time 38.3 SEC (24.3-30.1) Urine Color YELLOW (YELLW/STRAW) Urine Turbidity CLEAR (CLEAR) Urine pH 5.0 (5.0-8.5) Urine Specific [place] 1.014 (1.002-1.035) Urine Protein 30 mg/dL (NEG-TRACE) Urine Glucose (UA) NEG mg/dL (NEG) Urine Ketones TRACE mg/dL (NEG) Urine Occult Blood SMALL (NEG) Urine Nitrite NEG (NEG) Urine Bilirubin NEG (NEG) Urine Urobilinogen 2.0 mg/dL (LESS THAN 2) Urine Leukocyte Esterase NEG (NEG) Urine RBC 1 /hpf (0-3) Urine WBC 2 /hpf (0-5) Urine Bacteria RARE /hpf (NONE) Urine Hyaline Casts 1 /lpf (RARE) Urine Granular Casts 1 /lpf (NONE) Urine Mucus FEW /lpf (OCC) Microscopic Urinalysis Comment CULT NOT INDICATED Blood Urea Nitrogen 23 MG/DL (7-18) Creatinine 2.13 MG/DL (0.60-1.30) Random Glucose 247 MG/DL (74-106) Total Protein 5.6 GM/DL (6.4-8.2) Albumin 2.5 GM/DL (3.4-5.0) Calcium Level 8.2 MG/DL (8.5-10.1) Alkaline Phosphatase 83 U/L (45-117) Aspartate Amino Transf (AST/SGOT) 121 U/L (15-37) Alanine Aminotransferase (ALT/SGPT) 80 U/L (12-78) Total Bilirubin 0.7 MG/DL (0.2-1.0) Sodium Level 141 MEQ/L (136-145) Potassium Level 4.1 MEQ/L (3.5-5.1) Chloride Level 105 MEQ/L (98-107) Carbon Dioxide Level 14.5 MEQ/L (21.0-32.0) Anion Gap 22 MEQ/L (5-15) Estimat Glomerular Filtration Rate 30 ML/MIN (>89) Total Creatine Kinase 783 U/L (39-308) Creatine Kinase MB 55.0 NG/ML (0.5-3.6) Creatine Kinase MB % 7.0 % (0.0-4.0) Troponin I 4.56 NG/ML (0.02-0.05) B-Type Natriuretic Peptide 469 PG/ML (0-100) Lipase 443 U/L (73-393) Thyroid Stimulating Hormone 3rd Gen 3.630 uIU/ML (0.358-3.740) Salicylates Level LESS THAN 1.7 MG/DL Urine Opiates Screen NEG (NEG) Acetaminophen Level LESS THAN 2.0 MCG/ML Urine Barbiturates Screen NEG (NEG) Urine Amphetamines Screen NEG (NEG) Urine Benzodiazepines Screen NEG (NEG) Urine Cocaine Screen NEG (NEG) Urine Cannabinoids Screen NEG (NEG) Ethyl Alcohol Level LESS THAN 3 MG/DL (0-5) Blood Gas Puncture Site RT RADIAL RT RADIAL Blood Gas Patient Temperature 98.6 98.6 Blood Gas HCO3 14 mmol/L (22-26) 19 mmol/L (22-26) Blood Gas Base Excess -15.4 mmol/L (-2-2) -7.7 mmol/L (-2-2) Blood Gas Oxygen Saturation 91 % (90-100) 92 % (90-100) Arterial Blood pH 6.98 (7.380-7.420) 7.20 (7.380-7.420) Arterial Blood Partial Pressure CO2 64 mmHg (38-42) 50 mmHg (38-42) Arterial Blood Partial Pressure O2 103 mmHG (61-120) 82 mmHG (61-120) Arterial Blood Oxygen Content 14.9 Vol % (12.0-20.0) 15.1 Vol % (12.0-20.0) Arterial Blood Carboxyhemoglobin 0.8 % (0-4) 1.2 % (0-4) Arterial Blood Methemoglobin 0.7 % (0-2) 0.6 % (0-2) Blood Gas Hemoglobin 11.5 G/DL (12.0-16.0) 11.7 G/DL (12.0-16.0) Oxygen Delivery Device Y VENTILATOR Blood Gas Inspired Oxygen 100 % 100 % Lactic Acid Level 8.4 mmol/L (0.4-2.0) Blood Gas Ventilator Setting [id number] Test 05/09/18 11:45 05/09/18 11:57 Blood Gas Puncture Site ART LINE Blood Gas Patient Temperature 98.6 Blood Gas HCO3 20 mmol/L (22-26) Blood Gas Base Excess -4.9 mmol/L (-2-2) Blood Gas Oxygen Saturation 97 % (90-100) Arterial Blood pH 7.35 (7.380-7.420) Arterial Blood Partial Pressure CO2 37 mmHg (38-42) Arterial Blood Partial Pressure O2 148 mmHg (61-120) Arterial Blood Oxygen Content 15.1 Vol % (12.0-20.0) Arterial Blood Carboxyhemoglobin 1.1 % (0-4) Arterial Blood Methemoglobin 1.5 % (0-2) Blood Gas Hemoglobin 10.9 G/DL (12.0-16.0) Oxygen Delivery Device VENTILATOR Blood Gas Ventilator Setting PRVC/AC Blood Gas Inspired Oxygen 100 % Lactic Acid Level 4.2 mmol/L (0.4-2.0) . Result Diagram: 05/09/18 0430 05/09/18429 Microbiology Microbiology Date/Time Source Procedure Growth Status 05/09/18 07:15 Sputum Endotracheal Gram Stain Pending Received 05/09/18 07:15 Sputum Endotracheal Sputum Culture Pending Received . Imaging Last [address] 05/09/18426 Signed Impressions: CONCLUSION: Atrophy, with moderate motion artifact otherwise negative for an a cute process. Juanjo Rodriguez MD FACR Chest X-Ray 05/09/18426 Signed Impressions: CONCLUSION: 1. By lateral perihilar and bibasilar opacities most characteristic of pulmona ry edema which may be cardiogenic or noncardiogenic in origin. 2. The patient is intubated and nasogastric tube is in place. Abdomen/Pelvis CT 05/09/18 0427 Signed Impressions: Moderate vascular calcifications are noted. CONCLUSION: 1. Bibasilar parental changes developing airspace disease right lung 2. There is no pneumothorax 3. Moderate gaseous distention of probably: Without obstruction. 4. There are no inflammatory changes in the abdomen 5. Gallstone, neck of the gallbladder gallbladder wall thickening Chest X-Ray 05/09/18 0000 Signed Impressions: CONCLUSION: 1. Right-sided central line in place. No pneumothorax. 2. There continues to be bilateral interstitial and airspace pulmonary infiltr ates. . Procedures 04/08/2018: Intubation 04/08/2018: OGT placed 04/08/2018: Right-sided IJ central line placement 04/08/2018: Right radial arterial line placement. . Patient/Family Conference Present at Family Conference: Met with patient's daughter, Steffany, at bedside and privately in the family conference room. . Family Conference Location: Bedside, Consult Room Issues Discussed: * Palliative care role, purpose, approach * Additional medical, psychosocial, and spiritual history * Patients general health, functional status, and cognitive changes in the months leading up to the current hospitalization * Patient/family understanding of the current medical problems * Patient/family understanding of prognosis * Patients goals of care as best understood from advance directives and/or conversations and/or values * Current medical treatment options and benefits/burdens of those options * Likely scenarios comparing ongoing aggressive care with a transition to comfort measures only * Questions answered to the best of my ability * Palliative care contact information provided . Assessment and Plan Disease Oriented Problem List: (1) Postoperative cardiac arrest (2) Shock circulatory (3) Pulmonary edema (4) Non-STEMI (non-ST elevated myocardial infarction) (5) Leukocytosis (6) Acute encephalopathy (7) Elevated liver enzymes (8) Respiratory failure (9) Acute kidney injury Symptom Scale: (1) Encephalopathy Pertinent Non-Medical Issues Psychosocial: Patient was born and raised in [place]. 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 He was to his , Naomi, for approximately 58 years. She 6 weeks ago from complications related to CHF. Together they had 5 children (Pietro, Corey, Jarad, Samm, Tai and Steffany ). Patient's 5 sons live in [place], and his daughter lives locally. The patient moved to [place] approximately 4 weeks ago and has been residing at [facility] in [place]. Spiritual: Gnosticist anjel Legal:Given patient's clinical condition, he is unable to participate in medical decision making. Patient's daughter, Steffany Sexton, is the designated healthcare surrogate decision-maker. Copies of these documents are accessible in patient's paper chart as well and have been faxed to HIM to be scanned into the patient's EMR. Ethical issues impacting care: No known ethical issues impacting care at this time. . Important Contacts Steffany Sexton, daughter: [phone] . Prognosis Patient is an 82-year-old male who sustained a PEA/asystole arrest [facility]. Patient is on responsive and appears to be having seizure activity; he is requiring pressor support. His prognosis is extremely poor; it is unlikely he will survive this hospitalization. . Code Status: No Code Plan * NO CODE * Given patient's clinical condition, he is unable to participate in medical decision making. Patient's daughter, Steffany Sexton, is the designated healthcare surrogate decision-maker. Copies of these documents are accessible in patient' s paper chart as well and have been faxed to HIM to be scanned into the patient' s EMR. * Patient's daughter tearfully states that she has had multiple conversations with her father in which she clearly stated that, given his age and multiple comorbid conditions, he would not want extended, life prolonging interventions. Had a lengthy discussion about the process of cardiopulmonary resuscitation. Patient is currently intubated; patient's daughter states that in the event he was inadvertently extubated she does not want him to be reintubated. CODE STATUS changed to NO CODE. * Discussed patient with RN (Larry) and Dr. Webb * Palliative care contact information provided to the patient's daughter. * Symptom management-encephalopathy: Acute encephalopathy with concern for anoxic brain injury, displaying generalized tonic-clonic movements. EEG consistent with seizure activity. * Palliative care will continue to follow this patient throughout his hospitalization to establish trust, assist with symptom management and clarification of medical treatment goals. . Thank you for the opportunity to participate in the care of Mr. Meeks. . Attestation To help prompt me to consider important information that might be impacting today's encounter and assessment, information from prior notes written by myself or my colleagues may have been "brought forward" into today's note. My signature on this note, however, is an attestation that I personally performed the exam, history, and/or decision-making noted today, and, unless otherwise indicated, the interactions with patient, family, and staff as well as the review of records all occurred today. I also attest that the listed assessment and stated plan reflect my best clinical judgment today based on the combination of historical information, prior notes, and today's exam/ interactions. When time spent is documented, it refers only to time spent today by the signer, or if indicated, combined time spent today by collaborating physician/nurse practitioner. . Fernanda Jolly May 09, 2018 13:19
[2018-05-09] MEDS ORDERED: HEPARIN SODIUM - IV 10,000 UNITS/10 ML VIAL IV PUSH ONE (13:30)
--- NOTE | 2018-05-09 13:30 | PD.PROCEDR ---
Central Line Procedure REASON FOR PROCEDURE Central venous access PROCEDURE PERFORMED Central line placement: Right internal jugular CONSENT Informed consent for procedure was not obtained since the procedure was emergent. ANESTHESIA Local injection of 1% Lidocaine DESCRIPTION OF THE PROCEDURE The patient was placed in supine, mild Trendelenburg position. The area was exposed and cleansed with ChloraPrep, times two. Large sterile drape was used to cover the patient, with the site exposed, under sterile conditions including cap, face mask, sterile gown, and sterile gloves. On single attempt, the introducer needle was inserted with negative pressure in syringe and venous flash was obtained. The guide wire was then advanced without any restriction and the needle was removed. The dilator was used without any complications. Using Seldinger technique the central venous catheter was advanced over the guide wire to a depth of 16 centimeters. The guide wire was removed. All ports were aspirated with dark venous blood return and flushed easily with sterile saline. All ports were capped. Antibiotic disc was placed around central line at puncture site. The central line was secured to the skin with two interrupted 2.0 silk sutures. The area was bandaged with sterile see- through central line bandage. RADIOLOGICAL DATA Ultrasound guidance was used to locate the vein. Doppler/color flow was used to confirm venous flow. CXR was ordered. COMPLICATIONS: No apparent complications ESTIMATED BLOOD LOSS: Less than 1 cc. Jose Webb MD May 09, 2018 13:30
[2018-05-09] MEDS: MIDAZOLAM 50 MG/NS 50 ML DRIP Premix IV PRN ×2 (13:39→19:17)
[2018-05-09 14:26] LABS: HEMATOCRIT 31.3 % (39.0-51.0); HEMOGLOBIN 10.6 GM/DL (13.0-17.0); MEAN CELL VOLUME 99.7 FL (80.0-100.0); MEAN CORPUSCULAR HEMOGLOBIN 33.8 PG (27.0-34.0); MEAN CORPUSCULAR HGB CONC 33.9 % (32.0-36.0); MEAN PLATELET VOLUME 9.4 FL (7.0-11.0); PLATELET COUNT 309 TH/MM3 (150-450); RED BLOOD COUNT 3.14 MIL/MM3 (4.50-5.90); WHITE BLOOD COUNT 25.2 TH/MM3 (4.0-11.0)
--- NOTE | 2018-05-09 14:31 | MG ---
cc: Hang Perez MD, PhD DATE OF STUDY: 05/09/2018 EEG TEST NUMBER: [id number] TECHNIQUE: A 17-channel EEG. DESCRIPTION: The background rhythm shows a burst suppression type pattern with very low-amplitude delta activity ranging from 2-4 microvolts with bursts of epileptiform discharges occurring in a generalized fashion every 8-10 seconds. No lateralizing features identified. INTERPRETATION: Abnormal study consistent with a burst suppression pattern with a period of about 8-10 seconds. Hang Perez MD, PhD WILI/CELESTINO , 02:19 PM , 02:30 PM
[2018-05-09 14:34] LABS: INTERNATIONAL NORMALIZED RATIO 1.2 RATIO; PROTHROMBIN TIME - PATIENT 11.8 SEC (9.8-11.6)
[2018-05-09] MEDS: HEPARIN-D5W 25,000 U/250 ML 250 ML IV PRN (14:44)
[2018-05-09] MEDS: VASOPRESSIN INJ 40 UNITS in DEXTROSE 5% IN WATER 100ML INJ 98 ML IV SCH ×2 (14:50)
[2018-05-09] MEDS ORDERED: FOSPHENYTOIN INJ 500 MGPE in SODIUM CHLORIDE 0.9% INJ 50 ML IV ONE ×2 (15:00→16:00)
[2018-05-09] MEDS ORDERED: FOSPHENYTOIN SODIUM 500 MG PE/10 ML VIAL IV ONE (15:00)
--- NOTE | 2018-05-09 15:14 | PD.CONS ---
HPI Service Nephrology Consult Requested By Dr. Webb Reason for Consult Severe metabolic acidosis and respiratory acidosis Primary Care Physician Unknown History of Present Illness Mr. Meeks is a 82-year-old male longterm resident with a past medical history of CHF, Alzheimer, glaucoma, rheumatoid arthritis, and neuropathy. Presented to [facility] ED status post PEA/asystole arrest, was Combitube in field and ACLS was preformed. In ED the patient was intubated he was found to be hypotensive and started on pressors. Nephrology is consulted for severe metabolic acidosis and possible need for CRRT. Creatinine is at 2.13 and potassium at 4.1 and HCO3 at 14.5. Has indwelling kapadia catheter with approximately 125 ml of urine. Bllood pressure is low and he is on levophed and dopamine. He appears to be having active seizures. (Mally Terry) Review of Systems ROS Limitations: Clinical Condition, Intubated, Unresponsive (Mally Terry) Past Family Social History Allergies: Coded Allergies: Penicillins (Verified Allergy, Severe, 05/09/18) Past Medical History CHF Alzheimer Glaucoma Rheumatoid arthritis Neuropathy Active Ordered Medications Current Medications Medications (Trade) Dose Ordered Sig/Yasmeen Route Start Time Stop Time Status Last Admin Propofol 100 ml @ 0 mls/hr TITRATE PRN IV 05/09/18 04:45 05/09/18 13:38 Dopamine HCl/ Dextrose 500 ml @ 0 mls/hr TITRATE PRN IV 05/09/18 04:45 05/09/18 09:26 (Brethine Inj) 1 mg UNSCH PRN SQ 05/09/18 04:45 Pharmacy Profile Note 0 ml @ 0 mls/hr UNSCH OTHER 05/09/18 06:45 Aztreonam 1000 mg/ Sodium Chloride 100 ml @ 200 mls/hr Q12H IV 05/09/18 08:00 05/09/18 08:11 Metronidazole 100 ml @ 100 mls/hr Q8H IV 05/09/18 08:00 05/09/18 14:45 Levetriacetam 500 mg/Sodium Chloride 105 ml @ 420 mls/hr Q12H IV 05/09/18 18:00 (Pepcid Inj) 20 mg DAILY IV PUSH 05/09/18 09:00 05/09/18 08:41 (Tears Naturale Opth Soln) 1 drop TID EACH EYE 05/09/18 09:00 05/09/18 13:00 (Duoneb Neb) 1 ampule Q4HR NEB INH 05/09/18 08:00 05/09/18 07:32 ([facility]) 1 [id number] XX 05/09/18 06:45 05/09/18 06:45 (Chlorhexidine 2% Cloth) 3 pack Taper DAILY@04 TOP 05/10/18 04:00 05/06/19 03:59 (Chlorhexidine 2% Cloth) 3 pack UNSCH PRN TOP 05/09/18 06:45 (Peridex 0.12% Liq) 15 ml BID@08,20 MT 05/09/18 08:00 Norepinephrine Bitartrate 250 ml @ 7.5 mls/hr TITRATE PRN IV 05/09/18 11:30 05/09/18 10:45 (Brethine Inj) 1 mg UNSCH PRN SQ 05/09/18 11:30 (Aspirin Chew) 81 mg DAILY CHEW 05/10/18 09:00 Sodium Chloride 1,000 ml @ 84 mls/hr [id number] IV 05/09/18 13:00 05/09/18 13:06 Midazolam HCl 50 ml @ 2 mls/hr TITRATE PRN IV 05/09/18 13:15 05/09/18 13:39 (Heparin Inj) 5,000 units UNSCH PRN IV PUSH 05/09/18 19:30 (Heparin Inj) 2,500 units UNSCH PRN IV PUSH 05/09/18 19:30 Heparin Sodium/ Dextrose 250 ml @ 10 mls/hr TITRATE PRN IV 05/09/18 13:30 05/09/18 14:44 Family History Unable to obtain Social History unable to obtain Living at assisted facility (Mally Terry) Physical Exam Vital Signs Vital Signs Date Time Temp Pulse Resp B/P (MAP) Pulse Ox O2 Delivery O2 Flow Rate FiO2 05/09/18 11:46 100 100 05/09/18 10:45 80 100/40 05/09/18 10:33 92 18 124/60 (81) 99 Ventilator 05/09/18 10:30 100 100 05/09/18 10:19 98 24 99 Ventilator 100 05/09/18 10:00 98 24 110/51 (70) 100 Ventilator 100 05/09/18 09:26 89 103/51 05/09/18 09:00 96 22 100/51 (67) 100 Ventilator 100 05/09/18 08:30 104 24 98/46 (63) 100 Ventilator 05/09/18 08:00 97 18 89/53 (65) 100 Ventilator 100 05/09/18 07:29 97 100 05/09/18 07:00 108 25 112/53 (72) 100 Ventilator 100 05/09/18 06:56 107 24 99/53 (68) 94 Ventilator 100 05/09/18 06:38 98 100 05/09/18 06:34 114 23 98/54 (69) 99 Ventilator 100 05/09/18 06:20 111 20 105/45 (65) 93 Ventilator 100 05/09/18 05:54 109 22 102/53 (69) 87 Ventilator 100 05/09/18 05:50 88 100 05/09/18 05:44 106 22 104/51 (68) 88 Ventilator 100 05/09/18 05:23 100 05/09/18 05:20 102 22 120/59 (79) 94 Ventilator 100 05/09/18 05:09 104 16 125/60 (81) 96 Ventilator 100 05/09/18 05:05 95 100 05/09/18 05:05 106 131/62 05/09/18 04:42 100 05/09/18 04:39 12 95 Ventilator 100 05/09/18 04:39 95 Ventilator 100 05/09/18 04:38 98 16 159/75 (103) 95 Ventilator 100 05/09/18 04:30 97 12 98 Room Air 05/09/18 04:23 93 14 163/76 (105) 95 05/09/18 04:21 95 100 Physical Exam GENERAL: intubated and non responsive SKIN: Warm and dry. HEAD: Normocephalic. EYES: No scleral icterus. No injection or drainage. NECK: Supple, trachea midline. No JVD or lymphadenopathy. CARDIOVASCULAR: Regular rate and rhythm without murmurs, gallops, or rubs. RESPIRATORY: Breath sounds diminished equal bilaterally. Intubated. Abnormal breathing pattern GASTROINTESTINAL: Abdomen soft, non-tender, large MUSCULOSKELETAL: No cyanosis, or edema. BACK: Nontender without obvious deformity. No CVA tenderness. Laboratory Laboratory Tests Test 05/09/18 04:30 05/09/18 04:50 05/09/18 06:40 05/09/18 06:55 White Blood Count 18.8 Red Blood Count 3.30 Hemoglobin 11.2 Hematocrit 36.1 Mean Corpuscular Volume 109.5 Mean Corpuscular Hemoglobin 33.8 Mean Corpuscular Hemoglobin Concent 30.9 Red Cell Distribution Width 16.3 Platelet Count 284 Mean Platelet Volume 9.9 Neutrophils (%) (Auto) 68.1 Lymphocytes (%) (Auto) 23.2 Monocytes (%) (Auto) 6.6 Eosinophils (%) (Auto) 1.3 Basophils (%) (Auto) 0.8 Neutrophils # (Auto) 12.8 Lymphocytes # (Auto) 4.4 Monocytes # (Auto) 1.2 Eosinophils # (Auto) 0.2 Basophils # (Auto) 0.1 CBC Comment AUTO DIFF Differential Total Cells Counted 100 Neutrophils % (Manual) 49 Band Neutrophils % 18 Lymphocytes % 22 Monocytes % 7 Eosinophils % 1 Basophils % 1 Neutrophils # (Manual) 13.0 Metamyelocytes 1 Myelocytes 1 Differential Comment FINAL DIFF MANUAL Platelet Estimate NORMAL Platelet Morphology Comment ENLARGED Acanthocytes OCC Prothrombin Time 12.3 Prothromb Time International Ratio 1.2 Activated Partial Thromboplast Time 38.3 Urine Color YELLOW Urine Turbidity CLEAR Urine pH 5.0 Urine Specific [place] 1.014 Urine Protein 30 Urine Glucose (UA) NEG Urine Ketones TRACE Urine Occult Blood SMALL Urine Nitrite NEG Urine Bilirubin NEG Urine Urobilinogen 2.0 Urine Leukocyte Esterase NEG Urine RBC 1 Urine WBC 2 Urine Bacteria RARE Urine Hyaline Casts 1 Urine Granular Casts 1 Urine Mucus FEW Microscopic Urinalysis Comment CULT NOT INDICATED Blood Urea Nitrogen 23 Creatinine 2.13 Random Glucose 247 Total Protein 5.6 Albumin 2.5 Calcium Level 8.2 Alkaline Phosphatase 83 Aspartate Amino Transf (AST/SGOT) 121 Alanine Aminotransferase (ALT/SGPT) 80 Total Bilirubin 0.7 Sodium Level 141 Potassium Level 4.1 Chloride Level 105 Carbon Dioxide Level 14.5 Anion Gap 22 Estimat Glomerular Filtration Rate 30 Total Creatine Kinase 783 Creatine Kinase MB 55.0 Creatine Kinase MB % 7.0 Troponin I 4.56 B-Type Natriuretic Peptide 469 Lipase 443 Thyroid Stimulating Hormone 3rd Gen 3.630 Salicylates Level LESS THAN 1.7 Urine Opiates Screen NEG Acetaminophen Level LESS THAN 2.0 Urine Barbiturates Screen NEG Urine Amphetamines Screen NEG Urine Benzodiazepines Screen NEG Urine Cocaine Screen NEG Urine Cannabinoids Screen NEG Ethyl Alcohol Level LESS THAN 3 Blood Gas Puncture Site RT RADIAL RT RADIAL Blood Gas Patient Temperature 98.6 98.6 Blood Gas HCO3 14 19 Blood Gas Base Excess -15.4 -7.7 Blood Gas Oxygen Saturation 91 92 Arterial Blood pH 6.98 7.20 Arterial Blood Partial Pressure CO2 64 50 Arterial Blood Partial Pressure O2 103 82 Arterial Blood Oxygen Content 14.9 15.1 Arterial Blood Carboxyhemoglobin 0.8 1.2 Arterial Blood Methemoglobin 0.7 0.6 Blood Gas Hemoglobin 11.5 11.7 Oxygen Delivery Device Y VENTILATOR Blood Gas Inspired Oxygen 100 100 Lactic Acid Level 8.4 Blood Gas Ventilator Setting [id number] Test 05/09/18 11:45 05/09/18 11:57 05/09/18 13:10 Blood Gas Puncture Site ART LINE Blood Gas Patient Temperature 98.6 Blood Gas HCO3 20 Blood Gas Base Excess -4.9 Blood Gas Oxygen Saturation 97 Arterial Blood pH 7.35 Arterial Blood Partial Pressure CO2 37 Arterial Blood Partial Pressure O2 148 Arterial Blood Oxygen Content 15.1 Arterial Blood Carboxyhemoglobin 1.1 Arterial Blood Methemoglobin 1.5 Blood Gas Hemoglobin 10.9 Oxygen Delivery Device VENTILATOR Blood Gas Ventilator Setting PRVC/AC Blood Gas Inspired Oxygen 100 Lactic Acid Level 4.2 Troponin I GREATER THAN 40.00 White Blood Count 25.2 Red Blood Count 3.14 Hemoglobin 10.6 Hematocrit 31.3 Mean Corpuscular Volume 99.7 Mean Corpuscular Hemoglobin 33.8 Mean Corpuscular Hemoglobin Concent 33.9 Red Cell Distribution Width 15.0 Platelet Count 309 Mean Platelet Volume 9.4 Prothrombin Time 11.8 Prothromb Time International Ratio 1.2 Activated Partial Thromboplast Time 26.8 Date/Time Source Procedure Growth Status 05/09/18 07:15 Sputum Endotracheal Gram Stain Pending Received 05/09/18 07:15 Sputum Endotracheal Sputum Culture Pending Received (Mally Terry) Result Diagram: 05/09/18 1310 05/09/18 0430 Imaging Last Impressions Head CT 05/09/18426 Signed Impressions: CONCLUSION: Atrophy, with moderate motion artifact otherwise negative for an a cute process. Juanjo Rodriguez MD FACR Chest X-Ray 05/09/18426 Signed Impressions: CONCLUSION: 1. By lateral perihilar and bibasilar opacities most characteristic of pulmona ry edema which may be cardiogenic or noncardiogenic in origin. 2. The patient is intubated and nasogastric tube is in place. Abdomen/Pelvis CT 05/09/18426 Signed Impressions: Moderate vascular calcifications are noted. CONCLUSION: 1. Bibasilar parental changes developing airspace disease right lung 2. There is no pneumothorax 3. Moderate gaseous distention of probably: Without obstruction. 4. There are no inflammatory changes in the abdomen 5. Gallstone, neck of the gallbladder gallbladder wall thickening (Mally Terry) Assessment and Plan Problem List: (1) Acute kidney injury ICD Codes: N17.9 - Acute kidney failure, unspecified Plan: Acute kidney injury with a creatinine is at 2.13 and potassium at 4.1 and HCO3 at 14.5. CONNOR most likely ATN from cardiac arrest and poor renal perfusion Oliguric On levophed and dopamine for blood pressure support Maintain blood pressure with MAP of 65 mmhg Maintain indwelling kapadia catheter and accurate I+O Avoid nephrotoxins Will monitor urinary output and bmp CC is inquiring about possible need for CRRT discussed with Dr. Sheriff he will evaluate. (2) Respiratory failure ICD Codes: J96.90 - Respiratory failure, unspecified, unspecified whether with hypoxia or hypercapnia Plan: Intubated and mild sedation (Mally Terry) Problem List: (1) Acute kidney injury ICD Codes: N17.9 - Acute kidney failure, unspecified Plan: Acute kidney injury with a creatinine is at 2.13 and potassium at 4.1 and HCO3 at 14.5. CONNOR most likely ATN from cardiac arrest and poor renal perfusion Oliguric On levophed and dopamine for blood pressure support Maintain blood pressure with MAP of 65 mmhg Maintain indwelling kapadia catheter and accurate I+O Avoid nephrotoxins Will monitor urinary output and bmp CC is inquiring about possible need for CRRT discussed with Dr. Sheriff he will evaluate. Patient seen and examined, agree with above. Urine out put is better, no urgent need for Dialysis now. D/W the daughter. (2) Respiratory failure ICD Codes: J96.90 - Respiratory failure, unspecified, unspecified whether with hypoxia or hypercapnia Plan: Intubated and mild sedation (Margaux Sheriff MD) Mally Terry May 09, 2018 15:14 Margaux Sheriff MD May 09, 2018 22:59
[2018-05-09] MEDS: levETIRAcetam INJ 750 MG in SODIUM CHLORIDE 0.9% INJ 100 ML IV SCH (18:00)
[2018-05-09] MEDS ORDERED: levETIRAcetam INJ 500 MG in SODIUM CHLORIDE 0.9% INJ 100 ML IV SCH (18:00)
--- NOTE | 2018-05-09 18:05 | MB ---
cc: Hang Perez MD, PhD DATE: 05/09/2018 REASON FOR CONSULTATION: Anoxic encephalopathy. HISTORY OF PRESENT ILLNESS: The patient is an 82-year-old man who resides in a custodial, who was this morning at 4:00 a.m. found unresponsive in cardiac arrest. EMS was called and began CPR. It is not known exactly how long he was down. The patient developed a generalized jerking type of activity. EEG revealed burst suppression pattern. He has been started on Versed, Diprivan as well as Cerebyx and Keppra and the burst suppression pattern has subsided. PAST MEDICAL HISTORY: History of Alzheimer's dementia, glaucoma, rheumatoid arthritis, neuropathy. ALLERGIES: PENICILLIN. CURRENT MEDICATIONS: He is on propofol, Versed, Keppra 750 q.12 hours, Cerebyx having received a loading dose of 1500 mg, famotidine, Versed drip 6 mg per hour. NEUROLOGIC EXAMINATION: VITAL SIGNS: Blood pressure 88/49, pulse 104, patient is on a ventilator. HIGHER CORTICAL FUNCTION: The patient is nonresponsive. CRANIAL NERVES: Pupils are small, miotic, sluggishly reactive. The extraocular movements are minimal to doll's eyes maneuver. Gag reflex depressed. MOTOR EXAM: He does not have any myoclonus presently. No tonic-clonic activity. No withdrawal to noxious stimuli. DIAGNOSTIC STUDIES: CT of the brain unremarkable. EEG initially showed a burst suppression pattern. Now, he is on continuous EEG telemetry with no signs of any epileptiform discharges. He has got very slow delta activity with low amplitude activity at 2-5 microvolts. LABORATORY DATA: White count 25,200; hemoglobin 10.6; hematocrit 31%; platelets 309,000. Sodium is 141, potassium 4.1, chloride 105, CO2 is 14.5, BUN is 23, creatinine 2.13, glucose 247. IMPRESSION AND RECOMMENDATIONS: Anoxic encephalopathy, status post cardiac arrest. Prognosis is very guarded given the EEG finding. When the patient is more stable, consider MRI of the brain, which may be helpful prognostically as well. Continue current anticonvulsants. Hang Perez MD, PhD WILI/ARABELLA , 05:19 PM , 06:04 PM
[2018-05-09] MEDS: EPINEPHrine (1:1000) INJ 2 MG in DEXTROSE 5% IN WATER INJ 250 ML IV PRN ×4 (18:37→23:34)
[2018-05-09] MEDS ORDERED: HEPARIN SODIUM - IV 10,000 UNITS/10 ML VIAL IV PUSH PRN ×2 (19:30)
[2018-05-09] MEDS: FOSPHENYTOIN SODIUM 100 MG PE/2 ML VIAL IV SCH (21:03)
[2018-05-09 22:25] LABS: ALBUMIN 2.1 GM/DL (3.4-5.0); BICARBONATE 18.5 MEQ/L (21.0-32.0); CALCIUM 6.6 MG/DL (8.5-10.1); CALCIUM-PROTEIN CORRECTED 7.6 MG/DL (8.5-10.1); CREATININE 3.24 MG/DL (0.60-1.30); TOTAL BILIRUBIN ADULT 0.6 MG/DL (0.2-1.0); TOTAL PROTEIN 5.1 GM/DL (6.4-8.2)
[2018-05-10] VITALS (17 sets, daily range): BP systolic 89–137; BP diastolic 45–61; PULSE 84–101; RESP 0–30; TEMP 98.4–99.4; O2SAT 92–97
[2018-05-10] MEDS: SODIUM CHLOR 0.9% 1000 ML INJ 1,000 ML IV SCH ×2 (00:55→13:30)
[2018-05-10] MEDS: NOREPINEPHRINE-DEXTROSE DRIP 250 ML IV PRN ×6 (01:58→19:40)
[2018-05-10] MEDS: MIDAZOLAM 50 MG/NS 50 ML DRIP Premix IV PRN ×4 (02:39→20:31)
[2018-05-10] MEDS: EPINEPHrine (1:1000) INJ 2 MG in DEXTROSE 5% IN WATER INJ 250 ML IV PRN ×6 (02:55→13:00)
[2018-05-10] MEDS: RESP: ALBUTEROL 2.5 MG/IPRATROPIUM 0.5 MG NEB (SCH) INH ×5 (03:46→20:12)
[2018-05-10] MEDS: CHLORHEXIDINE GLUCONATE 2 % 1 PACK (2 CLOTHS) TOP SCH (04:00)
--- NOTE | 2018-05-10 04:03 | RADRPT ---
EXAM DATE: 05/10/2018 3:59 AM EDT AGE/SEX: 82 years / Male INDICATIONS: Shortness of breath, post cardiac arrest. CLINICAL DATA: This is the patient's subsequent encounter. Patient reports that signs and symptoms h ave been present for 4 - 6 days and indicates a pain score of Nonresponsive. MEDICAL/SURGICAL HISTORY: Cardiovascular disease. Non-responsive. COMPARISON: [facility] [place], CHEST SINGLE AP, 05/09/2018. . FINDINGS: A single AP semierect view of the chest was obtained and again demonstrates the endotracheal tube in place with the tip at the level of the thoracic inlet. The nasogastric tube remains in place with the tip in the stomach. The right internal jugular central venous line is unchanged. Bilateral perihilar infiltrates remain without significant change. The heart size is at the upper limits of normal. Ther e is no distinct effusion. Multiple overlying electrocardiogram leads are present. CONCLUSION: 1. Stable appearance with bilateral perihilar opacities most characteristic of pulmonary edema. Electronically signed by: Noah Barry MD 05/10/2018 4:02 AM EDT
[2018-05-10 04:12] LABS: AUTOMATED NEUTROPHIL # 21.7 TH/MM3 (1.8-7.7); BASOPHIL # 0.1 TH/MM3 (0-0.2); BASOPHIL % 0.3 % (0.0-2.0); HEMATOCRIT 33.3 % (39.0-51.0); HEMOGLOBIN 10.7 GM/DL (13.0-17.0); LYMPH % 5.6 % (9.0-44.0); LYMPHOCYTE # 1.3 TH/MM3 (1.0-4.8); MEAN CELL VOLUME 103.6 FL (80.0-100.0); MEAN CORPUSCULAR HEMOGLOBIN 33.4 PG (27.0-34.0); MEAN CORPUSCULAR HGB CONC 32.2 % (32.0-36.0); MEAN PLATELET VOLUME 9.4 FL (7.0-11.0); MONO % 4.1 % (0.0-8.0); PLATELET COUNT 331 TH/MM3 (150-450); RED BLOOD COUNT 3.21 MIL/MM3 (4.50-5.90); RED CELL DISTRIBUTION WIDTH 16.1 % (11.6-17.2); WHITE BLOOD COUNT 24.1 TH/MM3 (4.0-11.0)
[2018-05-10 04:30] LABS: ALBUMIN 2.1 GM/DL (3.4-5.0); BICARBONATE 15.1 MEQ/L (21.0-32.0); CALCIUM 6.4 MG/DL (8.5-10.1); CREATININE 3.76 MG/DL (0.60-1.30); MAGNESIUM 1.8 MG/DL (1.5-2.5); PHENYTOIN (DILANTIN) 11.2 MCG/ML (10.0-20.0); RANDOM VANCOMYCIN 12.9 COMMENT; TOTAL BILIRUBIN ADULT 0.6 MG/DL (0.2-1.0)
[2018-05-10 04:37] LABS: CALCIUM-PROTEIN CORRECTED 7.4 MG/DL (8.5-10.1)
[2018-05-10] MEDS ORDERED: CALCIUM GLUCONATE INJ 2 GM in SODIUM CHLORIDE 0.9% INJ 100 ML IV ONE (04:45)
[2018-05-10] MEDS ORDERED: SODIUM BICARBONATE 8.4% INJ 50 MEQ/50 ML SYR IV PUSH ONE ×2 (04:45→07:30)
[2018-05-10] MEDS ORDERED: DEXTROSE 50% IN WATER 50 ML VIAL(D50) IV PUSH ONE (04:45)
[2018-05-10] MEDS ORDERED: INSULIN HUMAN REGULAR 1,000 UNITS/10 ML VIAL IV PUSH ONE (04:45)
[2018-05-10] MEDS ORDERED: SODIUM POLYSTYRENE SULFONATE SUSP 15 GM/60 ML CUP RECTAL ONE (04:45)
[2018-05-10] MEDS ORDERED: SODIUM POLYSTYRENE SULFONATE SUSP 15 GM/60 ML CUP PO ONE (04:45)
[2018-05-10] MEDS: FOSPHENYTOIN SODIUM 100 MG PE/2 ML VIAL IV SCH ×3 (05:31→22:17)
[2018-05-10] MEDS: levETIRAcetam INJ 750 MG in SODIUM CHLORIDE 0.9% INJ 100 ML IV SCH ×2 (06:30→17:52)
[2018-05-10] MEDS ORDERED: MISC INFORMATION OTHER ONE (07:15)
[2018-05-10] MEDS ORDERED: DEXTROSE 50% IN WATER 50 ML VIAL(D50) IV PUSH PRN (07:15)
[2018-05-10] MEDS ORDERED: MAGNESIUM SULFATE 1 GM PREMIX 100 ML IV ONE (07:30)
[2018-05-10] MEDS: VASOPRESSIN INJ 40 UNITS in DEXTROSE 5% IN WATER 100ML INJ 98 ML IV SCH ×2 (07:30)
[2018-05-10] MEDS: CHLORHEXIDINE 0.12% (ORAL KIT) 15 ML CUP MT SCH ×2 (08:00→20:33)
--- NOTE | 2018-05-10 08:53 | PD.PROCEDR ---
Central Line Procedure REASON FOR PROCEDURE Dialysis access PROCEDURE PERFORMED Vas cath placement: right femoral CONSENT Informed consent for procedure was obtained from daughter - POA. The risks and benefits of the procedure were discussed to include but limited to bleeding, clot formation, infection, and even . ANESTHESIA Local injection of 1% Lidocaine DESCRIPTION OF THE PROCEDURE The patient was placed in supine, mild Trendelenburg position. The area was exposed and cleansed with ChloraPrep, times two. Large sterile drape was used to cover the patient, with the site exposed, under sterile conditions including cap, face mask, sterile gown, and sterile gloves. On single attempt, the introducer needle was inserted with negative pressure in syringe and venous flash was obtained. The guide wire was then advanced without any restriction and the needle was removed. The dilator was used without any complications. Using Seldinger technique the 14fr catheter was advanced over the guide wire to a depth of 24 centimeters. The guide wire was removed. All ports were aspirated with dark venous blood return and flushed easily with sterile saline. All ports were capped. Antibiotic disc was placed around central line at puncture site. The central line was secured to the skin with two interrupted 2.0 silk sutures. The area was bandaged with sterile see-through central line bandage. RADIOLOGICAL DATA Ultrasound guidance was used to locate the right femoral vein. Doppler/color flow was used to confirm venous flow. COMPLICATIONS: No apparent complications ESTIMATED BLOOD LOSS: Less than 1 cc. Jose Webb MD May 10, 2018 08:53
[2018-05-10] MEDS ORDERED: INSULIN REGULAR (IV INFUSION) 100 UNITS in SODIUM CHLORIDE 0.9% INJ 99 ML IV PRN (09:00)
[2018-05-10] MEDS: ARTIFICIAL TEARS OPTH SOLN 15 ML BTL EACH EYE SCH ×3 (09:00→17:52)
[2018-05-10] MEDS: AZTREONAM INJ 1,000 MG in SODIUM CHLORIDE 0.9% INJ 100 ML IV SCH ×2 (09:34→20:32)
[2018-05-10] MEDS: HYDROCORTISONE SOD SUCCINATE 100 MG VIAL IV PUSH SCH ×3 (09:34→20:32)
[2018-05-10] MEDS: metroNIDAZOLE 500 MG INJ 100 ML IV SCH ×2 (09:34→17:52)
[2018-05-10] MEDS: ASPIRIN 81 MG CHEW TAB CHEW SCH (09:35)
[2018-05-10] MEDS: FAMOTIDINE 20 MG/2 ML VIAL IV PUSH SCH (09:47)
[2018-05-10] MEDS: SODIUM BICARBONATE 8.4% INJ 150 MEQ in WATER STERILE FOR INJ 850 ML IV SCH ×2 (09:47→20:32)
--- NOTE | 2018-05-10 10:01 | HHI.CCPN ---
Subjective Remarks/Hospital Course 82-year-old gentleman, long term resident, now brought in post cardiac arrest. History is very limited and is obtained mostly from ER chart patient is intubated, sedated, unresponsive and there is no family present at bedside. Per report patient had PEA/asystolic arrest in the long term. It is unclear how long was the downtime. Patient underwent ACLS protocol and received received 4 epinephrine. Intubation was attempted in the field but it was unsuccessful therefore Combitube was placed. In ER patient was endotracheally intubated and upon intubation pink frothy were observed. He became hypotensive requiring dopamine. Patient was started on propofol and he was given so far 2 mg of Ativan for seizure-like activity, Lasix 80 mg 1 and 1 bicarb. [facility] is now consulted for ICU admission. Patient was seen in ED, sedated and intubated , currently displaying generalized tonic-clonic movements consistent with seizure versus myoclonus. No family present at bedside. Patient is currently on dopamine at 5, propofol at 10. 05/10: Patient continues to decompensate over the night. He developed hyperkalemia requiring medical management with calcium, insulin and dextrose, and Kayexalate. Worsening metabolic acidosis requiring additional bicarb pushes. Patient weaned off dopamine, currently on norepinephrine at 20, epinephrine at 10, and vasopressin at 0.04. T-max of 100.4 over the night. Patient continues to require high doses of propofol and Versed and no current seizure-like activity noticed. On 24 hour continuous EEG monitoring. Objective Vital Signs Date Time Temp Pulse Resp B/P (MAP) Pulse Ox O2 Delivery O2 Flow Rate FiO2 05/10/18 09:32 92 123/47 05/10/18 08:29 97 65 05/10/18 04:00 99.4 29 05/09/18 10:33 Ventilator Intake and Output 05/10/18 05/10/18 05/10/18 07:59 15:59 23:59 Intake Total 2381.5 ml Output Total 125 ml Balance 2256.5 ml Result Diagram: 05/10/18 0355 05/10/18 0355 Other Results Laboratory Tests Test 05/09/18 11:45 05/10/18 04:18 Blood Gas Puncture Site ART LINE ART LINE Blood Gas Patient Temperature 98.6 98.6 Blood Gas HCO3 20 mmol/L (22-26) 14 mmol/L (22-26) Blood Gas Base Excess -4.9 mmol/L (-2-2) -13.0 mmol/L (-2-2) Blood Gas Oxygen Saturation 97 % (90-100) 92 % (90-100) Arterial Blood pH 7.35 (7.380-7.420) 7.13 (7.380-7.420) Arterial Blood Partial Pressure CO2 37 mmHg (38-42) 45 mmHg (38-42) Arterial Blood Partial Pressure O2 148 mmHg (61-120) 84 mmHg (61-120) Arterial Blood Oxygen Content 15.1 Vol % (12.0-20.0) 13.5 Vol % (12.0-20.0) Arterial Blood Carboxyhemoglobin 1.1 % (0-4) 1.0 % (0-4) Arterial Blood Methemoglobin 1.5 % (0-2) 1.5 % (0-2) Blood Gas Hemoglobin 10.9 G/DL (12.0-16.0) 10.4 G/DL (12.0-16.0) Oxygen Delivery Device VENTILATOR VENT Blood Gas Ventilator Setting PRVC/AC PRVC/AC 20/480/12 Blood Gas Inspired Oxygen 100 % 70 % Imaging Last 24 hours Impressions Chest X-Ray 05/10/18 0000 Signed Impressions: CONCLUSION: 1. Stable appearance with bilateral perihilar opacities most characteristic of pulmonary edema. Last Impressions Chest X-Ray 05/09/18 0427 Signed Impressions: CONCLUSION: 1. By lateral perihilar and bibasilar opacities most characteristic of pulmona ry edema which may be cardiogenic or noncardiogenic in origin. 2. The patient is intubated and nasogastric tube is in place. Objective Remarks General: Elderly gentleman, intubated and sedated, unresponsive, ill-appearing HEENT: Pupils are equal and sluggishly reactive, sclerae are anicteric, neck is supple, no rigidity, neck veins are distended, orally intubated, right IJ central venous catheter -site is clean CV: Regular heart sound, no murmurs Chest: Coarse breath sounds b/l, good air entry, no wheezes Abdomen: Soft, appears non-tender, non-distended, BS are decreased Skin: No rashes, dusky discoloration of both feet Extremities: Tepid, 2+ edema, + peripheral pulses Neuro: Intubated and sedated, unresponsive, no grimacing to pain, pupils equal and sluggishly reactive, no gag, no cough, no corneal, overbreathing the ventilator A/P Assessment and Plan 1. Post cardiac arrest with successful ROSC -unclear how long he was done 2. Acute hypoxic and hypercapnic respiratory failure -unchanged, patient continues to require 0.7 FiO2 and PEEP of 12 3. Circulatory shock -worsening, requiring 3 vasopressors 4. Probable pulmonary edema 5. Acute AG metabolic acidosis and respiratory acidosis -worsening 6. Non STEMI -very elevated troponin with EKG changes consistent with ischemia 7. Possible pneumonia -white count continues to be elevated 8. Acute encephalopathy with concern for anoxic injury, with burst suppression pattern on EEG 9. Elevated liver enzymes 10. CONNOR with hyperkalemia 11. History of dementia 1. Continue PRVC, increase respiratory rate to 30, decreased TI 2.85 to avoid auto PEEP. PIP ranges between 28-32. Maintain current 2. Vent bundle and bronchodilators 3. Continue norepinephrine, epinephrine and vasopressin to maintain a map above 65 4. Add stress dose steroids 5. Broad-spectrum antibiotics with Vanco, aztreonam and metronidazole 6. Give additional 2 amps of bicarb followed by bicarb drip 7. Medical management for hyperkalemia given 8. I placed emergent hemodialysis catheter after obtaining consent from daughter 9. Start insulin drip for better glucose control 10. Continue aspirin and heparin. No statin due to elevated liver enzymes and now beta-dat due to refractory shock 11. Echocardiogram 12. Follow-up cultures 13. Nephrology follow-up for CRRT 14. N.p.o. 15. GI prophylaxis with famotidine 16. DVT prophylaxis with SCDs and heparin 17. Continue sedation with propofol and Versed, continue Keppra. Corrected Dilantin level of 36 based on patient's albumin and creatinine clearance. Appreciate neurology consult I spent 47 minutes of critical care time, excluding procedures, managing ventilator, pressors, severe acidosis, hyperkalemia, ordering labs and reviewing data, discussing with nursing staff. Prognosis remains very poor. Jose Webb MD May 10, 2018 10:01
--- NOTE | 2018-05-10 10:15 | HHI.NPPN ---
Subjective Additional Remarks Patient remains intubated on pressors. Objective Data Data 05/10/18 05/11/18 19:00 07:00 Intake Total 107.5 ml Balance 107.5 ml Intake IV Total 107.5 ml Vital Signs Date Time Temp Pulse Resp B/P (MAP) Pulse Ox O2 Delivery O2 Flow Rate FiO2 05/10/18 09:32 92 123/47 05/10/18 08:29 97 65 05/10/18 07:30 97 104/58 05/10/18 06:06 101 110/53 05/10/18 06:00 101 05/10/18 05:32 100 100/49 05/10/18 04:01 97 70 05/10/18 04:00 70 05/10/18 04:00 99.4 93 29 122/59 (80) 96 95/49 (64) 05/10/18 04:00 93 05/10/18 02:55 92 90/49 05/10/18 02:00 94 05/10/18 01:58 94 92/48 05/10/18 00:00 95 05/10/18 00:00 70 05/10/18 00:00 99.0 95 27 116/56 (76) 94 89/48 (62) 05/09/18 23:48 94 70 05/09/18 23:34 96 85/46 05/09/18 22:37 97 93/48 05/09/18 22:00 96 05/09/18 20:50 94 70 05/09/18 20:00 70 05/09/18 20:00 91 05/09/18 20:00 100.0 91 26 113/55 (74) 95 102/49 (66) 05/09/18 19:17 83 94/48 05/09/18 18:37 87 80/47 05/09/18 18:00 98 05/09/18 16:45 95 100 05/09/18 16:06 104 88/49 05/09/18 16:04 104 89/47 05/09/18 16:00 105 05/09/18 16:00 100.4 105 26 107/55 (72) 94 94/49 (64) 05/09/18 16:00 70 05/09/18 14:50 104 92/48 05/09/18 14:00 101 05/09/18 12:00 101 05/09/18 12:00 100.1 101 29 130/62 (84) 100 92/54 (67) 05/09/18 11:46 100 100 05/09/18 10:45 80 100/40 05/09/18 10:33 92 18 124/60 (81) 99 Ventilator 05/09/18 10:30 100 100 05/09/18 10:19 98 24 99 Ventilator 100 -: 05/10/18 0355 05/10/18 0355 Microbiology 05/10/18 Aerobic Blood Culture, Received Pending 05/10/18 Anaerobic Blood Culture, Received Pending 05/10/18 Aerobic Blood Culture, Received Pending 05/10/18 Anaerobic Blood Culture, Received Pending Physical Exam General Appearance: No Acute Distress Neck Neck Exam: Neck Supple Pulmonary Resp Exam: Rhonchi, Diminished Breath Sounds Cardiology CV Exam: Regular Gastrointestinal/Abdomen GI Exam: Soft, Non-Tender, Bowel Sounds Present Integumentary Skin Exam: Dry, Cool Extremeties Extremities Exam: Trace Edema Neurologic Neuro Exam: Comatose Assessment/Plan Problem List: (1) Acute kidney injury ICD Codes: N17.9 - Acute kidney failure, unspecified Plan: CONNOR most likely ATN from cardiac arrest and poor renal perfusion Oliguric: 575 cc UOP/24 hours. On norepinephrine, epinephrine and vasopressin for blood pressure support Hyperkalemia today with K 6, acidosis. Will initiate trial of hemodialysis - which will provide improved potassium clearances vs CRRT. SBP 110-120s on pressors now. If tolerates HD today, possible next HD tomorrow or Saturday. If unable to tolerate HD, will switch to CRRT. (2) Respiratory failure ICD Codes: J96.90 - Respiratory failure, unspecified, unspecified whether with hypoxia or hypercapnia Plan: Intubated and mild sedation Marshall aGllegos MD May 10, 2018 10:15
[2018-05-10] MEDS ORDERED: VANCOMYCIN INJ 1,750 MG in SODIUM CHLORID 0.9% 500 ML INJ 500 ML IV ONE (11:00)
[2018-05-10] MEDS ORDERED: SODIUM CHLOR 0.9% 1000 ML INJ 1,000 ML OTHER PRN ×2 (11:22)
[2018-05-10] MEDS ORDERED: SODIUM CHLOR 0.9% 1000 ML INJ 1,000 ML IV PRN (11:22)
[2018-05-10] MEDS ORDERED: ACETAMINOPHEN 325 MG TAB PO PRN (11:30)
[2018-05-10] MEDS ORDERED: ONDANSETRON HCL 4 MG/2 ML VIAL IV PUSH PRN (11:30)
[2018-05-10] MEDS ORDERED: cloNIDine HCL 0.1 MG TAB PO PRN (11:30)
[2018-05-10] MEDS ORDERED: SODIUM CHLORIDE 0.9% FLUSH 10 ML FLUSH IV FLUSH PRN (11:30)
[2018-05-10] MEDS ORDERED: GELATIN 12 MM/7 MM FOAM TOP PRN (11:30)
[2018-05-10] MEDS ORDERED: NITROGLYCERIN 0.4 MG SL 25 TABS/BTL SL PRN (11:30)
[2018-05-10] MEDS ORDERED: HEPARIN SODIUM - IV 10,000 UNITS/10 ML VIAL IV FLUSH PRN (11:30)
[2018-05-10] MEDS ORDERED: diphenhydrAMINE HCL 25 MG CAP PO PRN (11:30)
[2018-05-10 13:56] LABS: BICARBONATE 21.8 MEQ/L (21.0-32.0); CALCIUM 6.4 MG/DL (8.5-10.1); CREATININE 3.93 MG/DL (0.60-1.30)
[2018-05-10 14:08] LABS: CALCIUM-PROTEIN CORRECTED 7.6 MG/DL (8.5-10.1); TOTAL PROTEIN 4.6 GM/DL (6.4-8.2)
[2018-05-10] MEDS: ALBUMIN 25% INJ 100 ML IV PRN ×2 (14:17→14:19)
[2018-05-10] MEDS: GENTAMICIN SULFATE 20 MG/2 ML VIAL OTHER PRN (14:18)
[2018-05-10] MEDS: MANNITOL 12.5 GM/50 ML VIAL IV PRN (14:18)
[2018-05-10] MEDS: HEPARIN SODIUM - IV 10,000 UNITS/10 ML VIAL PRN (14:18)
--- NOTE | 2018-05-10 14:26 | ECHRPT ---
Indication: CARDIAC ARREST CONCLUSIONS The left ventricular systolic function is moderately reduced with an estimated ejection fraction in the range of 40-45%. Apical hypokinesis, Inferior hypokinesis Normal left ventricular size. Wall thickness is normal. There was limited left ventricular wall motion assessment due to poor endocardial visualization. Trace mitral valve regurgitation. Diffuse calcification of the aortic valve. Technically difficult. BP: / HR: Rhythm: PVCs MEASUREMENTS (Male / Female) Normal Values Technical Quality:Very technically difficult study 2D ECHO LVOT Diameter 2.0 cm LV Ejection Fraction MOD 4C 43.7 % LV Ejection Fraction 4C AL 48.0 % M-MODE Aortic Root Diameter MM 1.9 cm LA Systolic Diameter MM 3.2 cm LA Ao Ratio MM 1.7 AV Cusp Separation MM 1.4 cm DOPPLER AV Peak Velocity 230.0 cm/s AV Peak Gradient 21.2 mmHg AV Mean Gradient 10.0 mmHg AV Velocity Time Integral 35.7 cm LVOT Peak Velocity 113.0 cm/s LVOT Peak Gradient 5.1 mmHg LVOT Velocity Time Integral 18.6 cm AV Area Cont Eq vti 1.6 cm AV Area Cont Eq pk 1.5 cm MV Area PHT 6.9 cm Mitral E Point Velocity 91.3 cm/s Mitral A Point Velocity 86.4 cm/s Mitral E to A Ratio 1.1 LV E' Lateral Velocity 11.6 cm/s Mitral E to LV E' Lateral Ratio 7.9 LV E' Septal Velocity 6.1 cm/s Mitral E to LV E' Septal Ratio 14.9 PV Peak Velocity 109.0 cm/s PV Peak Gradient 4.8 mmHg FINDINGS LEFT VENTRICLE The left ventricular systolic function is moderately reduced with an estimated ejection fraction in the range of 40-45%. Apical hypokinesis. Inferior hypokinesis Normal left ventricular size. Wall thickness is normal. There was limited left ventricular wall motion assessment due to poor endocardial visualization. RIGHT VENTRICLE Normal right ventricular size and systolic function. LEFT ATRIUM The left atrial size is normal. RIGHT ATRIUM The right atrial size is normal. ATRIAL SEPTUM Normal atrial septal thickness without atrial level shunting by limited color doppler interrogation. AORTA The aortic root and proximal ascending aorta are normal in size on limited imaging. MITRAL VALVE Structurally normal mitral valve. Trace mitral valve regurgitation. AORTIC VALVE Trileaflet aortic valve. Diffuse calcification of the aortic valve. TRICUSPID VALVE Structurally normal tricuspid valve. No tricuspid valve stenosis or regurgitation. PULMONARY VALVE The pulmonary valve is not well visualized. VESSELS The inferior vena cava is normal in size. PERICARDIUM No pericardial effusion. Sarbjit Tran MD (Electronically Signed) Final Date:10 May 2018 14:26
[2018-05-10] MEDS: PROPOFOL 1000 MG/100 ML INJ 100 ML IV PRN (17:30)
--- NOTE | 2018-05-10 17:57 | EKG ---
Date Performed: 05/09/2018 Time Performed: 13:13:30 PTAGE: 82 years EKG: Sinus rhythm POSSIBLE ANTERIOR MYOCARDIAL INFARCTION , OF INDETERMINATE AGE ST DEPRESSION, CONSIDER SUBENDOCARDIA L INJURY ABNORMAL ECG Compared to PREVIOUS TRACING , right bundle branch block has resolved, ST depressions are dramaticall y improved. PREVIOUS TRACIN05/09/2018 04.32 DOCTOR: Dayo Huynh Interpretating Date/Time 05/10/2018 17:55:54
--- NOTE | 2018-05-10 20:46 | HHI.PR ---
Review/Management Diagnosis Severe anoxic encephalopathy. EEG pattern depicts poor prognosis Diagnosis/Plan: Subjective Subjective Comments No acute events reported Active Medications Current Medications Medications (Trade) Dose Ordered Sig/Yasmeen Route Start Time Stop Time Status Last Admin Propofol 100 ml @ 0 mls/hr TITRATE PRN IV 05/09/18 04:45 05/10/18 17:30 Dopamine HCl/ Dextrose 500 ml @ 0 mls/hr TITRATE PRN IV 05/09/18 04:45 05/09/18 16:04 (Brethine Inj) 1 mg UNSCH PRN SQ 05/09/18 04:45 Pharmacy Profile Note 0 ml @ 0 mls/hr UNSCH OTHER 05/09/18 06:45 Aztreonam 1000 mg/ Sodium Chloride 100 ml @ 200 mls/hr Q12H IV 05/09/18 08:00 05/10/18 20:32 Metronidazole 100 ml @ 100 mls/hr Q8H IV 05/09/18 08:00 05/10/18 17:52 (Pepcid Inj) 20 mg DAILY IV PUSH 05/09/18 09:00 05/10/18 09:47 (Tears Naturale Opth Soln) 1 drop TID EACH EYE 05/09/18 09:00 05/10/18 17:52 (Duoneb Neb) 1 ampule Q4HR NEB INH 05/09/18 08:00 05/10/18 20:12 ([facility] [place] Nursing Information) 1 [id number] XX 05/09/18 06:45 05/09/18 06:45 (Chlorhexidine 2% Cloth) 3 pack Taper DAILY@04 TOP 05/10/18 04:00 05/06/19 03:59 05/10/18 04:00 (Chlorhexidine 2% Cloth) 3 pack UNSCH PRN TOP 05/09/18 06:45 (Peridex 0.12% Liq) 15 ml BID@08,20 MT 05/09/18 08:00 05/10/18 20:33 (Brethine Inj) 1 mg UNSCH PRN SQ 05/09/18 11:30 (Aspirin Chew) 81 mg DAILY CHEW 05/10/18 09:00 05/10/18 09:35 Sodium Chloride 1,000 ml @ 84 mls/hr [id number] IV 05/09/18 13:00 05/10/18 13:30 Midazolam HCl 50 ml @ 2 mls/hr TITRATE PRN IV 05/09/18 13:15 05/10/18 20:31 (Heparin Inj) 5,000 units UNSCH PRN IV PUSH 05/09/18 19:30 (Heparin Inj) 2,500 units UNSCH PRN IV PUSH 05/09/18 19:30 Heparin Sodium/ Dextrose 250 ml @ 10 mls/hr TITRATE PRN IV 05/09/18 13:30 05/09/18 14:44 Vasopressin 40 units/Dextrose 100 ml @ 6 mls/hr [id number] IV 05/09/18 14:50 05/10/18 07:30 Levetriacetam 750 mg/Sodium Chloride 107.5 ml @ 420 mls/hr Q12H IV 05/09/18 18:00 05/10/18 17:52 Epinephrine HCl 2 mg/Dextrose 252 ml @ 22.68 mls/ hr TITRATE PRN IV 05/09/18 17:00 05/10/18 13:00 (Cerebyx Inj) 100 mgpe Q8HR IV 05/09/18 22:00 05/10/18 16:59 Sodium Bicarbonate 150 meq/Sterile Water 1,000 ml @ 100 mls/hr Q10H IV 05/10/18 09:00 05/10/18 20:32 Insulin Human Regular 100 units/ Sodium Chloride 100 ml @ 0.5 mls/hr TITRATE PRN IV 05/10/18 09:00 05/10/18 09:51 (D50w (Vial) Inj) 50 ml UNSCH PRN IV PUSH 05/10/18 07:15 (SoluCORTEF INJ) 50 mg Q6H IV PUSH 05/10/18 08:00 05/10/18 20:32 Norepinephrine Bitartrate 250 ml @ 7.5 mls/hr TITRATE PRN IV 05/10/18 07:30 05/10/18 16:15 Sodium Chloride 1,000 ml @ 0 mls/hr Q0M PRN OTHER 05/10/18 11:22 (Heparin Inj) 8,000 units UNSCH PRN IV FLUSH 05/10/18 11:30 Sodium Chloride 1,000 ml @ 200 mls/hr Q5H PRN IV 05/10/18 11:22 Sodium Chloride 1,000 ml @ 0 mls/hr Q0M PRN OTHER 05/10/18 11:22 (Mannitol Inj) 12.5 gm UNSCH PRN IV 05/10/18 11:30 05/10/18 14:18 Albumin Human 100 ml @ 60 mls/hr UNSCH PRN IV 05/10/18 11:30 05/10/18 14:19 (NS Flush) 5 ml UNSCH PRN IV FLUSH 05/10/18 11:30 (Heparin Inj) UNSCH PRN .XX 05/10/18 11:30 05/10/18 14:18 (Gentamicin Inj) 20 mg UNSCH PRN OTHER 05/10/18 11:30 05/10/18 14:18 (Zofran Inj) 4 mg UNSCH PRN IV PUSH 05/10/18 11:30 (Tylenol) 650 mg UNSCH PRN PO 05/10/18 11:30 (Benadryl) 25 mg UNSCH PRN PO 05/10/18 11:30 (Nitrostat Sl) 0.4 mg UNSCH PRN SL 05/10/18 11:30 (Catapres) 0.1 mg UNSCH PRN PO 05/10/18 11:30 (Gelfoam 12 Mm/7 Mm Top) 1 foam UNSCH PRN TOP 05/10/18 11:30 Allergies Allergies Coded Allergies Penicillins (Verified Allergy, Severe, 05/09/18) Exam I&O / VS 05/10/18 05/10/18 05/11/18 15:00 23:00 07:00 Intake Total 1125.0 ml 257.5 ml Output Total 200 ml Balance 1125.0 ml 57.5 ml Intake IV Total 1125.0 ml 257.5 ml Output Urine Total 200 ml Hemodialysis 0 ml # Bowel Movements 1 Vital Signs Date Time Temp Pulse Resp B/P (MAP) Pulse Ox O2 Delivery O2 Flow Rate FiO2 05/10/18 20:15 97 65 05/10/18 19:40 91 136/47 05/10/18 18:00 89 05/10/18 18:00 98.9 89 7 133/61 (85) 95 137/49 (78) 05/10/18 16:15 80 120/50 05/10/18 16:00 65 05/10/18 16:00 87 05/10/18 15:13 95 65 05/10/18 14:00 87 05/10/18 13:00 87 124/45 05/10/18 13:00 87 127/41 05/10/18 12:00 98.4 92 26 128/58 (81) 96 125/45 (71) 05/10/18 12:00 92 05/10/18 12:00 65 05/10/18 11:24 97 65 05/10/18 10:00 97 05/10/18 09:32 92 123/47 05/10/18 08:29 97 65 05/10/18 08:00 99.4 99 30 111/53 (72) 92 115/58 (77) 05/10/18 08:00 70 05/10/18 08:00 99 05/10/18 07:30 97 104/58 05/10/18 06:06 101 110/53 05/10/18 06:00 101 05/10/18 05:32 100 100/49 05/10/18 04:01 97 70 05/10/18 04:00 70 05/10/18 04:00 99.4 93 29 122/59 (80) 96 95/49 (64) 05/10/18 04:00 93 05/10/18 02:55 92 90/49 05/10/18 02:00 94 05/10/18 01:58 94 92/48 05/10/18 00:00 95 05/10/18 00:00 70 05/10/18 00:00 99.0 95 27 116/56 (76) 94 89/48 (62) 05/09/18 23:48 94 70 05/09/18 23:34 96 85/46 05/09/18 22:37 97 93/48 05/09/18 22:00 96 05/09/18 20:50 94 70 Exam Comments nonresponsive/ sedated Objective Micro and Labs Laboratory Tests Test 05/09/18 21:15 05/09/18 22:15 05/10/18 00:52 05/10/18 03:55 Blood Urea Nitrogen 35 38 Creatinine 3.24 3.76 Random Glucose 293 407 Total Protein 5.1 5.0 Albumin 2.1 2.1 Calcium Level 6.6 6.4 Alkaline Phosphatase 51 47 Aspartate Amino Transf (AST/SGOT) 273 223 Alanine Aminotransferase (ALT/SGPT) 97 89 Total Bilirubin 0.6 0.6 Sodium Level 136 131 Potassium Level 5.4 6.0 Chloride Level 102 99 Carbon Dioxide Level 18.5 15.1 Anion Gap 16 17 Estimat Glomerular Filtration Rate 18 16 Protein Corrected Calcium 7.6 7.4 Troponin I GREATER THAN 40.00 Activated Partial Thromboplast Time 148.7 56.3 White Blood Count 24.1 Red Blood Count 3.21 Hemoglobin 10.7 Hematocrit 33.3 Mean Corpuscular Volume 103.6 Mean Corpuscular Hemoglobin 33.4 Mean Corpuscular Hemoglobin Concent 32.2 Red Cell Distribution Width 16.1 Platelet Count 331 Mean Platelet Volume 9.4 Neutrophils (%) (Auto) 90.0 Lymphocytes (%) (Auto) 5.6 Monocytes (%) (Auto) 4.1 Eosinophils (%) (Auto) 0.0 Basophils (%) (Auto) 0.3 Neutrophils # (Auto) 21.7 Lymphocytes # (Auto) 1.3 Monocytes # (Auto) 1.0 Eosinophils # (Auto) 0.0 Basophils # (Auto) 0.1 CBC Comment DIFF FINAL Differential Comment Phosphorus Level 8.0 Magnesium Level 1.8 Lactic Acid Level 6.8 Random Vancomycin Level 12.9 Phenytoin (Dilantin) Level 11.2 Test 05/10/18 04:18 05/10/18 08:41 05/10/18 10:20 05/10/18 12:30 Blood Gas Puncture Site ART LINE ART LINE Blood Gas Patient Temperature 98.6 98.6 Blood Gas HCO3 14 21 Blood Gas Base Excess -13.0 -5.4 Blood Gas Oxygen Saturation 92 92 Arterial Blood pH 7.13 7.24 Arterial Blood Partial Pressure CO2 45 50 Arterial Blood Partial Pressure O2 84 77 Arterial Blood Oxygen Content 13.5 12.2 Arterial Blood Carboxyhemoglobin 1.0 1.2 Arterial Blood Methemoglobin 1.5 1.2 Blood Gas Hemoglobin 10.4 9.3 Oxygen Delivery Device VENT VENTILATOR Blood Gas Ventilator Setting PRVC/AC 20/480/12 PRVC/AC480/30 Blood Gas Inspired Oxygen 70 65 Activated Partial Thromboplast Time 83.0 Blood Urea Nitrogen 47 Creatinine 3.93 Random Glucose 311 Total Protein 4.6 Calcium Level 6.4 Sodium Level 134 Potassium Level 4.5 Chloride Level 98 Carbon Dioxide Level 21.8 Anion Gap 14 Estimat Glomerular Filtration Rate 15 Protein Corrected Calcium 7.6 Test 05/10/18 16:00 05/10/18 16:45 Activated Partial Thromboplast Time 57.4 Date/Time Source Procedure Growth Status 05/10/18 08:46 Blood Peripheral Aerobic Blood Culture Pending Received 05/10/18 08:46 Blood Peripheral Anaerobic Blood Culture Pending Received 05/09/18 07:15 Sputum Endotracheal Gram Stain - Final Resulted 05/09/18 07:15 Sputum Endotracheal Sputum Culture - Preliminary MODERATE GROWTH NORMAL RESPIRATORY FL... Resulted Diagnostic Tests EEG telemetry show very infrequent burst suppression with low amplitude delta in between Hnag Perez MD PhD May 10, 2018 20:46
[2018-05-11] VITALS (36 sets, daily range): BP systolic 102–143; BP diastolic 39–65; PULSE 72–86; RESP 0–31; TEMP 98.4–98.9; O2SAT 97–100
[2018-05-11] MEDS: VASOPRESSIN INJ 40 UNITS in DEXTROSE 5% IN WATER 100ML INJ 98 ML IV SCH ×4 (00:10→20:23)
[2018-05-11] MEDS: RESP: ALBUTEROL 2.5 MG/IPRATROPIUM 0.5 MG NEB (SCH) INH ×6 (00:38→19:37)
[2018-05-11] MEDS: SODIUM CHLOR 0.9% 1000 ML INJ 1,000 ML IV SCH ×2 (00:45→21:21)
[2018-05-11] MEDS: HYDROCORTISONE SOD SUCCINATE 100 MG VIAL IV PUSH SCH ×4 (02:10→19:21)
--- NOTE | 2018-05-11 03:59 | RADRPT ---
EXAM DATE: 05/11/2018 3:35 AM EDT AGE/SEX: 82 years / Male INDICATIONS: Shortness of breath, severe CHF. CLINICAL DATA: This is the patient's subsequent encounter. Patient reports that signs and symptoms h ave been present for 4 - 6 days and indicates a pain score of Nonresponsive. MEDICAL/SURGICAL HISTORY: Cardiovascular disease. Non-responsive. COMPARISON: [facility] [place]. . FINDINGS: A single AP semierect view of the chest was obtained and again demonstrates the endotracheal tube wit h the tip approximately 3 cm from the alba. The nasogastric tube and right internal jugular central venous line. Alveolar opacities remain throughout both lungs greatest in the perihilar regions witho ut significant change. There may be mild blunting of the costophrenic angles. The heart size appears mildly prominent. Multiple overlying electrocardiogram leads are present. CONCLUSION: No significant change. Bilateral alveolar opacities remain most characteristic of pulmonary edema. Electronically signed by: Noah Barry MD 05/11/2018 3:58 AM EDT
[2018-05-11] MEDS: CHLORHEXIDINE GLUCONATE 2 % 1 PACK (2 CLOTHS) TOP SCH (04:00)
[2018-05-11] MEDS: SODIUM BICARBONATE 8.4% INJ 150 MEQ in WATER STERILE FOR INJ 850 ML IV SCH ×2 (05:00→21:20)
[2018-05-11 06:01] LABS: AUTOMATED NEUTROPHIL # 9.4 TH/MM3 (1.8-7.7); BASOPHIL % 0.2 % (0.0-2.0); HEMATOCRIT 24.4 % (39.0-51.0); HEMOGLOBIN 8.5 GM/DL (13.0-17.0); LYMPH % 3.4 % (9.0-44.0); LYMPHOCYTE # 0.3 TH/MM3 (1.0-4.8); MEAN CELL VOLUME 97.9 FL (80.0-100.0); MEAN CORPUSCULAR HEMOGLOBIN 34.1 PG (27.0-34.0); MEAN CORPUSCULAR HGB CONC 34.8 % (32.0-36.0); MEAN PLATELET VOLUME 9.5 FL (7.0-11.0); MONO % 2.6 % (0.0-8.0); MONOCYTE # 0.3 TH/MM3 (0-0.9); NEUT % 93.8 % (16.0-70.0); PLATELET COUNT 136 TH/MM3 (150-450); RED BLOOD COUNT 2.49 MIL/MM3 (4.50-5.90); RED CELL DISTRIBUTION WIDTH 15.8 % (11.6-17.2)
[2018-05-11 06:03] LABS: INTERNATIONAL NORMALIZED RATIO 1.4 RATIO; PROTHROMBIN TIME - PATIENT 14.1 SEC (9.8-11.6)
[2018-05-11 06:30] LABS: ALBUMIN 2.3 GM/DL (3.4-5.0); BICARBONATE 25.4 MEQ/L (21.0-32.0); CREATININE 3.08 MG/DL (0.60-1.30); MAGNESIUM 1.9 MG/DL (1.5-2.5)
[2018-05-11 06:33] LABS: PHENYTOIN (DILANTIN) 12.3 MCG/ML (10.0-20.0); PHOSPHORUS 5.2 MG/DL (2.5-4.9); TOTAL BILIRUBIN ADULT 0.6 MG/DL (0.2-1.0); TOTAL PROTEIN 4.9 GM/DL (6.4-8.2)
[2018-05-11] MEDS: FOSPHENYTOIN SODIUM 100 MG PE/2 ML VIAL IV SCH ×3 (06:48→22:14)
[2018-05-11] MEDS: levETIRAcetam INJ 750 MG in SODIUM CHLORIDE 0.9% INJ 100 ML IV SCH ×2 (06:48→17:36)
[2018-05-11] MEDS: metroNIDAZOLE 500 MG INJ 100 ML IV SCH ×4 (07:43→23:47)
[2018-05-11] MEDS: AZTREONAM INJ 1,000 MG in SODIUM CHLORIDE 0.9% INJ 100 ML IV SCH ×2 (07:43→19:21)
[2018-05-11] MEDS: NOREPINEPHRINE-DEXTROSE DRIP 250 ML IV PRN ×4 (07:44→21:21)
[2018-05-11] MEDS: ASPIRIN 81 MG CHEW TAB CHEW SCH (07:44)
[2018-05-11] MEDS: CHLORHEXIDINE 0.12% (ORAL KIT) 15 ML CUP MT SCH ×2 (07:45→19:20)
[2018-05-11] MEDS: ARTIFICIAL TEARS OPTH SOLN 15 ML BTL EACH EYE SCH ×3 (07:45→18:00)
[2018-05-11] MEDS: FAMOTIDINE 20 MG/2 ML VIAL IV PUSH SCH (07:48)
--- NOTE | 2018-05-11 07:55 | MG ---
cc: Hang Perez MD, PhD PROCEDURE PERFORMED: Continuous EEG telemetry. TEST NUMBER: [id number] TECHNIQUE: A 17-channel EEG. DESCRIPTION: Background rhythm reveals a severely attenuated rhythm. Amplitude is about 2 microvolts. There is slowing in the delta frequency at about 2 Hz. There is one generalized burst of epileptiform activity lasting about a second at the beginning, but the remaining tracing shows no evidence of any epileptiform discharges. The previously noted burst suppression pattern has resolved. Hang Perez MD, PhD WILI/ARABELLA , 09:11 PM , 07:52 AM
--- NOTE | 2018-05-11 07:57 | MG ---
cc: Hang Perez MD, PhD PROCEDURE PERFORMED: Continuous EEG telemetry. TEST NUMBER: [id number] TECHNIQUE: A 17-channel EEG. DESCRIPTION: Background activity shows a severely attenuated delta rhythm with a frequency of 2-3 Hz. Amplitude is about 2-3 microvolts. There were 1 or 2 episodes of burst of generalized epileptiform discharges, but for the most part the burst suppression pattern has resolved and the majority of the tracing is very low-amplitude delta. INTERPRETATION: Abnormal electroencephalogram on the basis of severe generalized slowing consistent with a severe encephalopathy. Hang Perez MD, PhD WILI/ARABELLA , 09:13 PM , 07:55 AM
--- NOTE | 2018-05-11 07:59 | MG ---
cc: Hang Perez MD, PhD TEST NUMBER: [id number] TECHNIQUE: This is a continuous EEG monitor. DESCRIPTION: The background rhythm reveals a delta rhythm with a frequency of 2-3 Hz. Amplitude is roughly 2-3 microvolts. There are no epileptiform discharges. No lateralizing features are identified. INTERPRETATION: Severely abnormal study consistent with a severe encephalopathy. There is no evidence of burst suppression pattern on this particular tracing. Hang Perez MD, PhD WILI/ARABELLA , 09:14 PM , 07:56 AM
--- NOTE | 2018-05-11 08:00 | MG ---
cc: Hang Perez MD, PhD PROCEDURE: Continuous EEG monitoring. TEST NUMBER: [id number] TECHNIQUE: A 17-channel EEG. DESCRIPTION: Background rhythm again is a very low-amplitude delta rhythm, frequency of about 2 Hz. Amplitude is 2-3 microvolts. There are no epileptiform discharges. There is some muscle artifact. INTERPRETATION: Markedly abnormal study with severely attenuated delta rhythm, consistent with a severe encephalopathy. Hang Perez MD, PhD WILI/ARABELLA , 09:16 PM , 07:58 AM
--- NOTE | 2018-05-11 08:01 | MG ---
cc: Hang Perez MD, PhD DESCRIPTION: There is continuous EEG monitoring performed. The background rhythm reveals generalized slowing in the delta frequency, 2-3 Hz. The amplitude is 2-3 microvolts. There is a rare burst of epileptiform discharges in a burst suppression pattern occurring once every 30 seconds, lasting only 1-2 seconds. No lateralizing features are seen. INTERPRETATION: Abnormal study consistent with very infrequent burst suppression pattern with bursts occurring every roughly 30 seconds consistent with severe encephalopathy. Hang Perez MD, PhD WILI/TL , 09:15 PM , 07:58 AM
[2018-05-11] MEDS ORDERED: GLUCAGON 1 MG/ML VIAL OTHER PRN (08:45)
[2018-05-11] MEDS ORDERED: DEXTROSE 50% IN WATER 50 ML SYRINGE IV PUSH PRN (08:45)
--- NOTE | 2018-05-11 08:57 | HHI.CCPN ---
Subjective Remarks/Hospital Course 82-year-old gentleman, custodial resident, now brought in post cardiac arrest. History is very limited and is obtained mostly from ER chart patient is intubated, sedated, unresponsive and there is no family present at bedside. Per report patient had PEA/asystolic arrest in the custodial. It is unclear how long was the downtime. Patient underwent ACLS protocol and received received 4 epinephrine. Intubation was attempted in the field but it was unsuccessful therefore Combitube was placed. In ER patient was endotracheally intubated and upon intubation pink frothy were observed. He became hypotensive requiring dopamine. Patient was started on propofol and he was given so far 2 mg of Ativan for seizure-like activity, Lasix 80 mg 1 and 1 bicarb. [facility] is now consulted for ICU admission. Patient was seen in ED, sedated and intubated , currently displaying generalized tonic-clonic movements consistent with seizure versus myoclonus. No family present at bedside. Patient is currently on dopamine at 5, propofol at 10. 05/10: Patient continues to decompensate over the night. He developed hyperkalemia requiring medical management with calcium, insulin and dextrose, and Kayexalate. Worsening metabolic acidosis requiring additional bicarb pushes. Patient weaned off dopamine, currently on norepinephrine at 20, epinephrine at 10, and vasopressin at 0.04. T-max of 100.4 over the night. Patient continues to require high doses of propofol and Versed and no current seizure-like activity noticed. On 24 hour continuous EEG monitoring. 05/11: No events overnight. Patient remains critically, on vasopressors, currently on norepinephrine at 18 mcg/min and vaso-at 0.04. Epinephrine is off. Patient had emergent hemodialysis yesterday for hyperkalemia. T-max of 98.9. Patient remains oliguric. No family present at bedside. Objective Vital Signs Date Time Temp Pulse Resp B/P (MAP) Pulse Ox O2 Delivery O2 Flow Rate FiO2 05/11/18 07:44 80 122/43 05/11/18 07:24 100 60 05/11/18 04:00 98.9 30 05/09/18 10:33 Ventilator Intake and Output 05/11/18 05/11/18 05/12/18 08:00 16:00 00:00 Output Total 250 ml Balance -250 ml Result Diagram: 05/11/18 0545 05/11/18 0545 Other Results Microbiology Date/Time Source Procedure Growth Status 05/10/18 08:46 Blood Peripheral Aerobic Blood Culture Pending Received 05/10/18 08:46 Blood Peripheral Anaerobic Blood Culture Pending Received 05/10/18 08:41 Blood Arterial Line Aerobic Blood Culture Pending Received 05/10/18 08:41 Blood Arterial Line Anaerobic Blood Culture Pending Received 05/09/18 07:15 Sputum Endotracheal Gram Stain - Final Resulted 05/09/18 07:15 Sputum Endotracheal Sputum Culture - Preliminary MODERATE GROWTH NORMAL RESPIRATORY FL... Resulted Laboratory Tests Test 05/10/18 10:20 05/11/18 05:54 Blood Gas Puncture Site ART LINE ART LINE Blood Gas Patient Temperature 98.6 98.6 Blood Gas HCO3 21 mmol/L (22-26) 26 mmol/L (22-26) Blood Gas Base Excess -5.4 mmol/L (-2-2) 1.7 mmol/L (-2-2) Blood Gas Oxygen Saturation 92 % (90-100) 94 % (90-100) Arterial Blood pH 7.24 (7.380-7.420) 7.42 (7.380-7.420) Arterial Blood Partial Pressure CO2 50 mmHg (38-42) 40 mmHg (38-42) Arterial Blood Partial Pressure O2 77 mmHg (61-120) 89 mmHg (61-120) Arterial Blood Oxygen Content 12.2 Vol % (12.0-20.0) 13.1 Vol % (12.0-20.0) Arterial Blood Carboxyhemoglobin 1.2 % (0-4) 1.3 % (0-4) Arterial Blood Methemoglobin 1.2 % (0-2) 1.3 % (0-2) Blood Gas Hemoglobin 9.3 G/DL (12.0-16.0) 9.8 G/DL (12.0-16.0) Oxygen Delivery Device VENTILATOR VENTILATOR Blood Gas Ventilator Setting PRVC/AC480/30 PRVC/AC30/520/ Blood Gas Inspired Oxygen 65 % 65 % Imaging Last 24 hours Impressions Chest X-Ray 05/11/18 0600 Signed Impressions: CONCLUSION: No significant change. Bilateral alveolar opacities remain most characteristic of pulmonary edema. Last 24 hours Impressions Chest X-Ray 05/10/18 0000 Signed Impressions: CONCLUSION: 1. Stable appearance with bilateral perihilar opacities most characteristic of pulmonary edema. Last Impressions Chest X-Ray 05/09/18 9566 Signed Impressions: CONCLUSION: 1. By lateral perihilar and bibasilar opacities most characteristic of pulmona ry edema which may be cardiogenic or noncardiogenic in origin. 2. The patient is intubated and nasogastric tube is in place. Objective Remarks General: Elderly gentleman, intubated and sedated, unresponsive, ill-appearing HEENT: Pupils equal and sluggishly reactive, sclerae anicteric, neck supple without rigidity, neck veins distended, orally intubated, right IJ central venous catheter (05/09) -site clean CV: Regular S1 and S2, no murmurs appreciated Chest: Still with coarse breath sounds b/l, good air entry, no wheezes Abdomen: Soft, appears non-tender, non-distended, BS are decreased Skin: No rashes, dusky discoloration of both feet without cyanosis Extremities: Tepid, 2+ edema, + peripheral pulses Neuro: Intubated and sedated, unresponsive, no grimacing to pain, pupils equal and reactive, + cough, no corneal, overbreathing the ventilator A/P Assessment and Plan 1. Post cardiac arrest with successful ROSC -unclear how long he was down 2. Acute hypoxic and hypercapnic respiratory failure -improved, FiO2 down to 0.55 but PEEP remains elevated 3. Circulatory shock -slightly improved, still on norepinephrine and vasopressin, weaned off epinephrine 4. Probable pulmonary edema 5. Acute AG metabolic acidosis and respiratory acidosis -improved post HD 6. Non STEMI -very elevated troponin with EKG changes consistent with ischemia 7. Possible pneumonia -white count continues to be elevated 8. Acute encephalopathy with concern for anoxic injury, with burst suppression pattern on EEG 9. Elevated liver enzymes 10. CONNOR with hyperkalemia -improved post HD 11. History of dementia 1. Continue PRVC, at current settings. No auto PEEP, patient is synchronized with the ventilator. PIP ranges between 29-31 2. Vent bundle and bronchodilators 3. Continue norepinephrine and vasopressin to maintain a map above 65 4. Continue stress dose steroids 5. Broad-spectrum antibiotics with Vanco, aztreonam and metronidazole. Cultures are negative to date so far except sputum culture which is consistent with possible aspiration 6. Decrease bicarb drip to 50 mL's per hour 7. Decrease saline to 30 cc/h 8. Stop insulin drip and transition to subcutaneous insulin 9. Repeat CBC at 12 PM 10. Continue aspirin and heparin. A further drop in platelets we will have to stop heparin. No statin due to elevated liver enzymes and now beta-dat due to refractory shock 11. N.p.o. 12. GI prophylaxis with famotidine 13. DVT prophylaxis with SCDs and heparin 14. Continue sedation with propofol and Versed, continue Keppra and fosphenytoin. Will try to start weaning midazolam infusion. Patient remains on 24 hour EEG monitoring I spent 32 minutes of critical care time, excluding procedures, managing pressors, fluids, insulin, ventilator, ordering labs and reviewing data, discussing with nursing staff. Prognosis remains very poor. Jose Webb MD May 11, 2018 08:57
[2018-05-11] MEDS: INSULIN ASPART SUPPLEMENTAL SCALE SQ SCH ×4 (09:57→23:48)
[2018-05-11] MEDS: PROPOFOL 1000 MG/100 ML INJ 100 ML IV PRN ×2 (09:58→17:34)
--- NOTE | 2018-05-11 10:26 | HHI.NPPN ---
Subjective Additional Remarks Patient remains intubated on pressors. Objective Data Data Vital Signs Date Time Temp Pulse Resp B/P (MAP) Pulse Ox O2 Delivery O2 Flow Rate FiO2 05/11/18 07:44 80 122/43 05/11/18 07:24 100 60 05/11/18 06:00 83 05/11/18 04:02 98 65 05/11/18 04:00 65 05/11/18 04:00 83 05/11/18 04:00 98.9 83 30 133/62 (85) 97 131/49 (76) 05/11/18 02:00 82 05/11/18 00:38 98 65 05/11/18 00:10 80 120/46 05/11/18 00:00 80 05/11/18 00:00 98.7 80 0 121/57 (78) 98 127/47 (73) 05/11/18 00:00 65 05/10/18 22:00 84 05/10/18 20:15 97 65 05/10/18 20:00 98.5 88 0 131/60 (83) 95 132/46 (74) 05/10/18 20:00 88 05/10/18 20:00 65 05/10/18 19:40 91 136/47 05/10/18 18:00 89 05/10/18 18:00 98.9 89 7 133/61 (85) 95 137/49 (78) 05/10/18 16:15 80 120/50 05/10/18 16:00 65 05/10/18 16:00 87 05/10/18 15:13 95 65 05/10/18 14:00 87 05/10/18 13:00 87 124/45 05/10/18 13:00 87 127/41 05/10/18 12:00 98.4 92 26 128/58 (81) 96 125/45 (71) 05/10/18 12:00 92 05/10/18 12:00 65 05/10/18 11:24 97 65 -: 05/11/18 0545 05/11/18 0545 Physical Exam General Appearance: No Acute Distress Neck Neck Exam: Neck Supple Pulmonary Resp Exam: Rhonchi, Diminished Breath Sounds Cardiology CV Exam: Regular Gastrointestinal/Abdomen GI Exam: Soft, Non-Tender, Bowel Sounds Present Integumentary Skin Exam: Dry, Cool Extremeties Extremities Exam: Trace Edema Neurologic Neuro Exam: Comatose Assessment/Plan Problem List: (1) Acute kidney injury ICD Codes: N17.9 - Acute kidney failure, unspecified Plan: CONNOR most likely ATN from cardiac arrest and poor renal perfusion Oliguric: 400 cc UOP/24 hours. Remains on pressor support HD initiated yesterday for hyperkalemia - tolerated HD well yesterday, no UF done. Remained stable with pressors. Will plan for next HD tomorrow. Continue to follow goals of care with family. (2) Respiratory failure ICD Codes: J96.90 - Respiratory failure, unspecified, unspecified whether with hypoxia or hypercapnia Plan: Intubated and mild sedation Marshall Gallegos MD May 11, 2018 10:26
[2018-05-11] MEDS: MIDAZOLAM 50 MG/NS 50 ML DRIP Premix IV PRN (10:42)
[2018-05-11] MEDS: HEPARIN-D5W 25,000 U/250 ML 250 ML IV PRN (16:07)
--- NOTE | 2018-05-11 18:16 | HHI.PR ---
Review/Management Diagnosis Severe anoxic encephalopathy. Plan continue cerebyx and keppra MRI brain tomorrow for prognosis Diagnosis/Plan: Subjective Subjective Comments No acute events reported Active Medications Current Medications Medications (Trade) Dose Ordered Sig/Yasmeen Route Start Time Stop Time Status Last Admin Propofol 100 ml @ 0 mls/hr TITRATE PRN IV 05/09/18 04:45 05/11/18 17:34 (Brethine Inj) 1 mg UNSCH PRN SQ 05/09/18 04:45 Pharmacy Profile Note 0 ml @ 0 mls/hr UNSCH OTHER 05/09/18 06:45 Aztreonam 1000 mg/ Sodium Chloride 100 ml @ 200 mls/hr Q12H IV 05/09/18 08:00 05/11/18 07:43 Metronidazole 100 ml @ 100 mls/hr Q8H IV 05/09/18 08:00 05/11/18 15:51 (Tears Naturale Opth Soln) 1 drop TID EACH EYE 05/09/18 09:00 05/11/18 18:00 (Duoneb Neb) 1 ampule Q4HR NEB INH 05/09/18 08:00 05/11/18 14:42 ([facility] Nursing Information) 1 [id number] XX 05/09/18 06:45 05/09/18 06:45 (Chlorhexidine 2% Cloth) 3 pack Taper DAILY@04 TOP 05/10/18 04:00 05/06/19 03:59 05/11/18 04:00 (Chlorhexidine 2% Cloth) 3 pack UNSCH PRN TOP 05/09/18 06:45 (Peridex 0.12% Liq) 15 ml BID@08,20 MT 05/09/18 08:00 05/11/18 07:45 (Brethine Inj) 1 mg UNSCH PRN SQ 05/09/18 11:30 (Aspirin Chew) 81 mg DAILY CHEW 05/10/18 09:00 05/11/18 07:44 Sodium Chloride 1,000 ml @ 30 mls/hr Q24H IV 05/09/18 13:00 05/11/18 00:45 Midazolam HCl 50 ml @ 2 mls/hr TITRATE PRN IV 05/09/18 13:15 05/11/18 10:42 (Heparin Inj) 5,000 units UNSCH PRN IV PUSH 05/09/18 19:30 (Heparin Inj) 2,500 units UNSCH PRN IV PUSH 05/09/18 19:30 Heparin Sodium/ Dextrose 250 ml @ 10 mls/hr TITRATE PRN IV 05/09/18 13:30 05/11/18 16:07 Vasopressin 40 units/Dextrose 100 ml @ 6 mls/hr [id number] IV 05/09/18 14:50 05/11/18 00:10 Levetriacetam 750 mg/Sodium Chloride 107.5 ml @ 420 mls/hr Q12H IV 05/09/18 18:00 05/11/18 17:36 Epinephrine HCl 2 mg/Dextrose 252 ml @ 22.68 mls/ hr TITRATE PRN IV 05/09/18 17:00 05/10/18 13:00 (Cerebyx Inj) 100 mgpe Q8HR IV 05/09/18 22:00 05/11/18 15:50 Sodium Bicarbonate 150 meq/Sterile Water 1,000 ml @ 50 mls/hr Q20H IV 05/10/18 09:00 05/11/18 05:00 (D50w (Vial) Inj) 50 ml UNSCH PRN IV PUSH 05/10/18 07:15 (SoluCORTEF INJ) 50 mg Q6H IV PUSH 05/10/18 08:00 05/11/18 15:50 Norepinephrine Bitartrate 250 ml @ 7.5 mls/hr TITRATE PRN IV 05/10/18 07:30 05/11/18 16:04 Sodium Chloride 1,000 ml @ 0 mls/hr Q0M PRN OTHER 05/10/18 11:22 (Heparin Inj) 8,000 units UNSCH PRN IV FLUSH 05/10/18 11:30 Sodium Chloride 1,000 ml @ 200 mls/hr Q5H PRN IV 05/10/18 11:22 Sodium Chloride 1,000 ml @ 0 mls/hr Q0M PRN OTHER 05/10/18 11:22 (Mannitol Inj) 12.5 gm UNSCH PRN IV 05/10/18 11:30 05/10/18 14:18 Albumin Human 100 ml @ 60 mls/hr UNSCH PRN IV 05/10/18 11:30 05/10/18 14:19 (NS Flush) 5 ml UNSCH PRN IV FLUSH 05/10/18 11:30 (Heparin Inj) UNSCH PRN .XX 05/10/18 11:30 05/10/18 14:18 (Gentamicin Inj) 20 mg UNSCH PRN OTHER 05/10/18 11:30 05/10/18 14:18 (Zofran Inj) 4 mg UNSCH PRN IV PUSH 05/10/18 11:30 (Tylenol) 650 mg UNSCH PRN PO 05/10/18 11:30 (Benadryl) 25 mg UNSCH PRN PO 05/10/18 11:30 (Nitrostat Sl) 0.4 mg UNSCH PRN SL 05/10/18 11:30 (Catapres) 0.1 mg UNSCH PRN PO 05/10/18 11:30 (Gelfoam 12 Mm/7 Mm Top) 1 foam UNSCH PRN TOP 05/10/18 11:30 (NovoLOG SUPPLEMENTAL SCALE) 1 Q6HR SQ 05/11/18 08:45 05/11/18 17:46 (D50w (Syr) Inj) 50 ml UNSCH PRN IV PUSH 05/11/18 08:45 (Glucagon Inj) 1 mg UNSCH PRN OTHER 05/11/18 08:45 (Pepcid) 20 mg DAILY PO 05/12/18 09:00 Allergies Allergies Coded Allergies Penicillins (Verified Allergy, Severe, 05/09/18) Exam I&O / VS 05/11/18 05/11/18 05/12/18 15:00 23:00 07:00 Output Total 175 ml Balance -175 ml Output Urine Total 175 ml # Bowel Movements 1 Vital Signs Date Time Temp Pulse Resp B/P (MAP) Pulse Ox O2 Delivery O2 Flow Rate FiO2 05/11/18 18:00 76 05/11/18 16:04 84 118/46 05/11/18 16:00 98.5 72 7 102/55 (71) 99 108/39 (62) 05/11/18 16:00 72 05/11/18 16:00 65 05/11/18 14:43 99 55 05/11/18 14:00 75 05/11/18 12:00 65 05/11/18 12:00 75 05/11/18 12:00 98.8 75 30 119/56 (77) 98 126/46 (72) 05/11/18 11:04 98 55 05/11/18 11:00 77 124/43 05/11/18 10:00 78 05/11/18 08:00 80 05/11/18 08:00 65 05/11/18 08:00 98.4 80 31 119/56 (77) 97 124/46 (72) 05/11/18 07:44 80 122/43 05/11/18 07:24 100 60 05/11/18 06:00 83 05/11/18 04:02 98 65 05/11/18 04:00 65 05/11/18 04:00 83 05/11/18 04:00 98.9 83 30 133/62 (85) 97 131/49 (76) 05/11/18 02:00 82 05/11/18 00:38 98 65 05/11/18 00:10 80 120/46 05/11/18 00:00 80 05/11/18 00:00 98.7 80 0 121/57 (78) 98 127/47 (73) 05/11/18 00:00 65 05/10/18 22:00 84 05/10/18 20:15 97 65 05/10/18 20:00 98.5 88 0 131/60 (83) 95 132/46 (74) 05/10/18 20:00 88 05/10/18 20:00 65 05/10/18 19:40 91 136/47 Exam Comments nonresponsive/ sedated pupils 2 mm symmetric and reactive MOTOR--no spontaneous limb movement. No posturing Objective Micro and Labs Laboratory Tests Test 05/11/18 00:45 05/11/18 05:45 05/11/18 05:54 Activated Partial Thromboplast Time 55.5 51.2 White Blood Count 10.0 Red Blood Count 2.49 Hemoglobin 8.5 Hematocrit 24.4 Mean Corpuscular Volume 97.9 Mean Corpuscular Hemoglobin 34.1 Mean Corpuscular Hemoglobin Concent 34.8 Red Cell Distribution Width 15.8 Platelet Count 136 Mean Platelet Volume 9.5 Neutrophils (%) (Auto) 93.8 Lymphocytes (%) (Auto) 3.4 Monocytes (%) (Auto) 2.6 Eosinophils (%) (Auto) 0.0 Basophils (%) (Auto) 0.2 Neutrophils # (Auto) 9.4 Lymphocytes # (Auto) 0.3 Monocytes # (Auto) 0.3 Eosinophils # (Auto) 0.0 Basophils # (Auto) 0.0 CBC Comment DIFF FINAL Differential Comment Prothrombin Time 14.1 Prothromb Time International Ratio 1.4 Blood Urea Nitrogen 44 Creatinine 3.08 Random Glucose 209 Total Protein 4.9 Albumin 2.3 Calcium Level 6.0 Phosphorus Level 5.2 Magnesium Level 1.9 Alkaline Phosphatase 32 Aspartate Amino Transf (AST/SGOT) 141 Alanine Aminotransferase (ALT/SGPT) 63 Total Bilirubin 0.6 Sodium Level 137 Potassium Level 3.6 Chloride Level 97 Carbon Dioxide Level 25.4 Anion Gap 15 Estimat Glomerular Filtration Rate 20 Lactic Acid Level 2.7 Protein Corrected Calcium 7.0 Phenytoin (Dilantin) Level 12.3 Blood Gas Puncture Site ART LINE Blood Gas Patient Temperature 98.6 Blood Gas HCO3 26 Blood Gas Base Excess 1.7 Blood Gas Oxygen Saturation 94 Arterial Blood pH 7.42 Arterial Blood Partial Pressure CO2 40 Arterial Blood Partial Pressure O2 89 Arterial Blood Oxygen Content 13.1 Arterial Blood Carboxyhemoglobin 1.3 Arterial Blood Methemoglobin 1.3 Blood Gas Hemoglobin 9.8 Oxygen Delivery Device VENTILATOR Blood Gas Ventilator Setting PRVC/AC30/520/ Blood Gas Inspired Oxygen 65 Date/Time Source Procedure Growth Status 05/10/18 08:46 Blood Peripheral Aerobic Blood Culture - Preliminary NO GROWTH IN 1 DAY Resulted 05/10/18 08:46 Blood Peripheral Anaerobic Blood Culture - Preliminary NO GROWTH IN 1 DAY Resulted 05/09/18 07:15 Sputum Endotracheal Gram Stain - Final Complete 05/09/18 07:15 Sputum Endotracheal Sputum Culture - Final MODERATE GROWTH NORMAL RESPIRATORY ANITA Complete Diagnostic Tests EEG---low amplitude delta (2-3 uV) with no epileptiform activity. He is off versed Hang Griffiths MD PhD May 11, 2018 18:16
--- NOTE | 2018-05-11 19:26 | MG ---
cc: Hang Perez MD, PhD ELECTROENCEPHALOGRAM CONTINUOUS MONITORING DATE OF THE STUDY: 05/11 TECHNIQUE: A 17-channel EEG. DESCRIPTION: Background rhythm is extremely low-amplitude delta, roughly 2-3 Hz. Amplitude is about 2 microvolts. There is some muscle artifact. No epileptiform discharges are identified. There is no sign of burst suppression as noted previously. Overall, study shows improvement from prior exams. INTERPRETATION: Abnormal study due to severely attenuated delta activity consistent with a severe encephalopathy. No evidence of burst suppression pattern. Hang Perez MD, PhD WILI/FRANCINE , 06:45 PM , 07:24 PM
[2018-05-11 22:10] LABS: AUTOMATED NEUTROPHIL # 8.1 TH/MM3 (1.8-7.7); BASOPHIL % 0.1 % (0.0-2.0); EOSINOPHIL % 0.1 % (0.0-4.0); HEMATOCRIT 23.9 % (39.0-51.0); HEMOGLOBIN 8.3 GM/DL (13.0-17.0); LYMPHOCYTE # 0.4 TH/MM3 (1.0-4.8); MEAN CELL VOLUME 98.4 FL (80.0-100.0); MEAN CORPUSCULAR HEMOGLOBIN 34.1 PG (27.0-34.0); MEAN CORPUSCULAR HGB CONC 34.7 % (32.0-36.0); MEAN PLATELET VOLUME 9.3 FL (7.0-11.0); MONO % 3.9 % (0.0-8.0); MONOCYTE # 0.3 TH/MM3 (0-0.9); NEUT % 91.9 % (16.0-70.0); PLATELET COUNT 113 TH/MM3 (150-450); RED BLOOD COUNT 2.43 MIL/MM3 (4.50-5.90); RED CELL DISTRIBUTION WIDTH 15.4 % (11.6-17.2); WHITE BLOOD COUNT 8.8 TH/MM3 (4.0-11.0)
[2018-05-12] VITALS (31 sets, daily range): BP systolic 95–130; BP diastolic 48–64; PULSE 71–86; RESP 22–28; TEMP 98–99.2; O2SAT 83–100
[2018-05-12] MEDS: RESP: ALBUTEROL 2.5 MG/IPRATROPIUM 0.5 MG NEB (SCH) INH ×5 (00:02→15:11)
[2018-05-12] MEDS: HYDROCORTISONE SOD SUCCINATE 100 MG VIAL IV PUSH SCH ×2 (01:32→07:59)
[2018-05-12] MEDS: PROPOFOL 1000 MG/100 ML INJ 100 ML IV PRN ×2 (01:57→08:02)
[2018-05-12] MEDS: CHLORHEXIDINE GLUCONATE 2 % 1 PACK (2 CLOTHS) TOP SCH (04:00)
[2018-05-12 04:26] LABS: AUTOMATED NEUTROPHIL # 5.8 TH/MM3 (1.8-7.7); HEMATOCRIT 22.7 % (39.0-51.0); HEMOGLOBIN 7.9 GM/DL (13.0-17.0); LYMPHOCYTE # 0.3 TH/MM3 (1.0-4.8); MEAN CELL VOLUME 98.2 FL (80.0-100.0); MEAN CORPUSCULAR HEMOGLOBIN 34.1 PG (27.0-34.0); MEAN CORPUSCULAR HGB CONC 34.7 % (32.0-36.0); MEAN PLATELET VOLUME 9.6 FL (7.0-11.0); MONO % 3.6 % (0.0-8.0); MONOCYTE # 0.2 TH/MM3 (0-0.9); NEUT % 91.4 % (16.0-70.0); PLATELET COUNT 93 TH/MM3 (150-450); RED BLOOD COUNT 2.31 MIL/MM3 (4.50-5.90); RED CELL DISTRIBUTION WIDTH 15.4 % (11.6-17.2); WHITE BLOOD COUNT 6.3 TH/MM3 (4.0-11.0)
[2018-05-12 04:33] LABS: INTERNATIONAL NORMALIZED RATIO 1.2 RATIO; PROTHROMBIN TIME - PATIENT 12.2 SEC (9.8-11.6)
[2018-05-12 04:59] LABS: BICARBONATE 24.9 MEQ/L (21.0-32.0); CALCIUM 6.1 MG/DL (8.5-10.1); CREATININE 3.48 MG/DL (0.60-1.30); MAGNESIUM 2.2 MG/DL (1.5-2.5); PHOSPHORUS 6.4 MG/DL (2.5-4.9); RANDOM VANCOMYCIN 17.2 COMMENT; TOTAL BILIRUBIN ADULT 0.5 MG/DL (0.2-1.0); TOTAL PROTEIN 4.6 GM/DL (6.4-8.2)
[2018-05-12 05:09] LABS: CALCIUM-PROTEIN CORRECTED 7.3 MG/DL (8.5-10.1)
[2018-05-12 05:30] LABS: BANDS 20 % (0-6); LYMPHOCYTES 2 % (9-44); MONOCYTES 2 % (0-8); POLYS (SEG NEUTROPHILS) 76 % (16-70)
[2018-05-12 05:31] LABS: DOHLE BODIES PRESENT (NONE SEEN); TOXIC GRANULATION 1+ (NORMAL)
[2018-05-12] MEDS ORDERED: CALCIUM GLUCONATE INJ 2 GM in SODIUM CHLORIDE 0.9% INJ 100 ML IV ONE (05:45)
[2018-05-12] MEDS: FOSPHENYTOIN SODIUM 100 MG PE/2 ML VIAL IV SCH (06:04)
[2018-05-12] MEDS: INSULIN ASPART SUPPLEMENTAL SCALE SQ SCH (06:05)
[2018-05-12] MEDS: levETIRAcetam INJ 750 MG in SODIUM CHLORIDE 0.9% INJ 100 ML IV SCH (06:05)
[2018-05-12] MEDS ORDERED: CALCIUM CHLORIDE IV ONE (07:45)
[2018-05-12] MEDS ORDERED: SODIUM CHLORIDE 0.9% IV ONE (07:45)
[2018-05-12] MEDS: metroNIDAZOLE 500 MG INJ 100 ML IV SCH (07:59)
[2018-05-12] MEDS: AZTREONAM INJ 1,000 MG in SODIUM CHLORIDE 0.9% INJ 100 ML IV SCH (07:59)
[2018-05-12] MEDS: CHLORHEXIDINE 0.12% (ORAL KIT) 15 ML CUP MT SCH (08:00)
[2018-05-12] MEDS: ASPIRIN 81 MG CHEW TAB CHEW SCH (08:00)
--- NOTE | 2018-05-12 08:00 | HHI.CCPN ---
Subjective Remarks/Hospital Course 82-year-old gentleman, group home resident, now brought in post cardiac arrest. History is very limited and is obtained mostly from ER chart patient is intubated, sedated, unresponsive and there is no family present at bedside. Per report patient had PEA/asystolic arrest in the group home. It is unclear how long was the downtime. Patient underwent ACLS protocol and received received 4 epinephrine. Intubation was attempted in the field but it was unsuccessful therefore Combitube was placed. In ER patient was endotracheally intubated and upon intubation pink frothy were observed. He became hypotensive requiring dopamine. Patient was started on propofol and he was given so far 2 mg of Ativan for seizure-like activity, Lasix 80 mg 1 and 1 bicarb. [facility] is now consulted for ICU admission. Patient was seen in ED, sedated and intubated , currently displaying generalized tonic-clonic movements consistent with seizure versus myoclonus. No family present at bedside. Patient is currently on dopamine at 5, propofol at 10. 05/10: Patient continues to decompensate over the night. He developed hyperkalemia requiring medical management with calcium, insulin and dextrose, and Kayexalate. Worsening metabolic acidosis requiring additional bicarb pushes. Patient weaned off dopamine, currently on norepinephrine at 20, epinephrine at 10, and vasopressin at 0.04. T-max of 100.4 over the night. Patient continues to require high doses of propofol and Versed and no current seizure-like activity noticed. On 24 hour continuous EEG monitoring. 05/11: No events overnight. Patient remains critically, on vasopressors, currently on norepinephrine at 18 mcg/min and vaso-at 0.04. Epinephrine is off. Patient had emergent hemodialysis yesterday for hyperkalemia. T-max of 98.9. Patient remains oliguric. No family present at bedside. 05/12: No events over the night. T-max of 99.2. Patient weaned off norepinephrine, currently being taken off vasopressin. Urine output remains minimal, with 425 mL's over the last 24 hours. Versed is currently off and patient continues to be on propofol at 20. On continuous 24 hour EEG monitoring. No family present at bedside. Oxygenation improved, down to 40%. Objective Vital Signs Date Time Temp Pulse Resp B/P (MAP) Pulse Ox O2 Delivery O2 Flow Rate FiO2 05/12/18 07:23 96 40 6/25/18 06:15 71 107/50 05/12/18 04:00 99.2 26 05/09/18 10:33 Ventilator Intake and Output 05/12/18 05/12/18 05/13/18 08:00 16:00 00:00 Intake Total 935.5 ml Output Total 250 ml Balance 685.5 ml Result Diagram: 05/12/18 0405 05/12/18 0405 Other Results Laboratory Tests Test 05/12/18 05:48 Blood Gas Puncture Site ART LINE Blood Gas Patient Temperature 98.6 Blood Gas HCO3 27 mmol/L (22-26) Blood Gas Base Excess 3.0 mmol/L (-2-2) Blood Gas Oxygen Saturation 96 % (90-100) Arterial Blood pH 7.44 (7.380-7.420) Arterial Blood Partial Pressure CO2 41 mmHg (38-42) Arterial Blood Partial Pressure O2 110 mmHg (61-120) Arterial Blood Oxygen Content 11.0 Vol % (12.0-20.0) Arterial Blood Carboxyhemoglobin 1.0 % (0-4) Arterial Blood Methemoglobin 1.2 % (0-2) Blood Gas Hemoglobin 8.0 G/DL (12.0-16.0) Oxygen Delivery Device VENTILATOR Blood Gas Ventilator Setting SEE COMMENTS Blood Gas Inspired Oxygen 50 % Imaging Last 24 hours Impressions Chest X-Ray 05/11/18 0600 Signed Impressions: CONCLUSION: No significant change. Bilateral alveolar opacities remain most characteristic of pulmonary edema. Last 24 hours Impressions Chest X-Ray 05/10/18 0000 Signed Impressions: CONCLUSION: 1. Stable appearance with bilateral perihilar opacities most characteristic of pulmonary edema. Last Impressions Chest X-Ray 05/09/18 0427 Signed Impressions: CONCLUSION: 1. By lateral perihilar and bibasilar opacities most characteristic of pulmona ry edema which may be cardiogenic or noncardiogenic in origin. 2. The patient is intubated and nasogastric tube is in place. Objective Remarks General: Elderly gentleman, intubated and sedated, unresponsive, ill-appearing HEENT: Pupils are equal, sluggishly reactive, sclerae are anicteric, neck is supple without rigidity, + JVD, orally intubated, right IJ central venous catheter (05/09) -site is clean, no carotid bruit CV: Regular heart sounds, no murmurs appreciated Chest: Coarse breath sounds b/l, good air entry, no wheezes Abdomen: Soft, appears non-tender, non-distended, BS are decreased, no hepatomegaly or splenomegaly appreciated Skin: No rashes, dusky discoloration of both feet without cyanosis Extremities: Warm and well-perfused, 2+ edema, + peripheral pulses, no clubbing Neuro: Intubated and sedated, unresponsive, no grimacing to pain, pupils equal and sluggish reactive, + cough, no corneal, overbreathing the ventilator A/P Assessment and Plan 1. Post cardiac arrest with successful ROSC -unclear how long he was down 2. Acute hypoxic and hypercapnic respiratory failure -improved, FiO2 down to 0.4 3. Circulatory shock -improved, off norepinephrine and epinephrine and currently being taken off vasopressin 4. Probable pulmonary edema 5. Acute AG metabolic acidosis and respiratory acidosis -improved post HD 6. Non STEMI -very elevated troponin with EKG changes consistent with myocardial ischemia 7. Possible pneumonia -white count continues to be elevated 8. Acute encephalopathy with concern for anoxic injury, with burst suppression pattern on EEG 9. Elevated liver enzymes -trending down 10. CONNOR with hyperkalemia -improved post HD 11. History of dementia 1. Continue PRVC, at current settings. No auto PEEP, patient is synchronized with the ventilator. PIP of 28. Will start decreasing PEEP 2. Vent bundle and bronchodilators 3. Stop vasopressin 4. Continue stress dose steroids and start taper tomorrow if patient remains off pressors 5. Broad-spectrum antibiotics with Vanco, aztreonam and metronidazole. Cultures are negative to date so far except sputum culture which is consistent with possible aspiration 6. Stop bicarb drip 7. Insulin sliding scale as needed 8. On Keppra and fosphenytoin per neuro 9. Brain MRI today 10. Continue aspirin and stop heparin due to thrombocytopenia. No statin due to elevated liver enzymes and now beta-dat due to refractory shock 11. N.p.o. 12. GI prophylaxis with famotidine 13. DVT prophylaxis with SCDs 14. Send HIT Prognosis remains very poor. Addendum: Family met with palliative care and they elected to proceed with withdrawal life support and transition to comfort care. MRI bernabe showed findings suspicious for diffuse anoxic event. Jose Webb MD May 12, 2018 08:00 Rita Baig MD May 12, 2018 15:39
[2018-05-12] MEDS: ARTIFICIAL TEARS OPTH SOLN 15 ML BTL EACH EYE SCH (08:03)
[2018-05-12] MEDS ORDERED: FAMOTIDINE 20 MG TAB PO SCH (09:00)
[2018-05-12] MEDS ORDERED: DOPamine 400 MG/250 ML INJ 250 ML ONE (09:51)
--- NOTE | 2018-05-12 13:25 | RADRPT ---
EXAM DATE: 05/12/2018 1:12 PM EDT AGE/SEX: 82 years / Male INDICATIONS: Encephalitis. CLINICAL DATA: This is the patient's initial encounter. Patient reports that signs and symptoms have been present for 1 day and indicates a pain score of Nonresponsive. MEDICAL/SURGICAL HISTORY: Congestive heart failure. Hypercholesterolemia. Dementia. None. COMPARISON: [facility] [place] A[place] & [place]ELVIS W/O CONTRAST, 05/09/2018. . TECHNIQUE: Multiplanar, multisequence examination of the brain was performed without contrast. FINDINGS: There is mild central and cortical atrophy with dilatation of ventricular and sulcal spaces. Minimal periventricular white matter changes are noted. There is increased signal intensity in the doan matte r, cortical sulci when compared to the deep brain white matter tracts with restricted diffusion. This can be seen with diffuse anoxia. There are no extra-axial fluid collections appreciated. Similar doan matter matter changes are seen i n the cerebellar hemispheres. CONCLUSION: 1. Findings suspicious for diffuse anoxic event. Electronically signed by: Juanjo Rodriguez MD 05/12/2018 1:24 PM EDT
[2018-05-12] MEDS: MANNITOL 12.5 GM/50 ML VIAL IV PRN (13:54)
[2018-05-12] MEDS: ALBUMIN 25% INJ 100 ML IV PRN ×2 (13:55→13:56)
[2018-05-12] MEDS: GENTAMICIN SULFATE 20 MG/2 ML VIAL OTHER PRN (13:55)
[2018-05-12] MEDS: HEPARIN SODIUM - IV 10,000 UNITS/10 ML VIAL PRN (13:55)
--- NOTE | 2018-05-12 15:45 | HHI.NPPN ---
Subjective Additional Remarks Patient remains intubated on pressors. Seen during Hemodialysis (Mally Terry) Review of Systems General General Remarks Unable to do review of system due to clinical condition. (Mally Terry) Objective Data Data 05/12/18 05/13/18 19:00 07:00 Intake Total 200 ml Output Total 0 ml Balance 200 ml Intake IV Total 200 ml Hemodialysis 0 ml Vital Signs Date Time Temp Pulse Resp B/P (MAP) Pulse Ox O2 Delivery O2 Flow Rate FiO2 05/12/18 15:10 94 40 05/12/18 13:21 100 40 05/12/18 12:30 100 100 05/12/18 11:08 98 40 05/12/18 07:23 96 40 05/12/18 06:15 71 107/50 05/12/18 06:00 71 05/12/18 04:15 85 112/53 05/12/18 04:00 55 05/12/18 04:00 73 05/12/18 04:00 99.2 73 26 106/58 (74) 99 109/49 (69) 05/12/18 03:45 73 26 109/49 (69) 99 05/12/18 03:32 99 50 05/12/18 03:30 74 27 111/55 (73) 99 112/49 (70) 05/12/18 03:15 86 27 113/52 (72) 98 05/12/18 03:00 73 27 112/55 (74) 99 110/48 (68) 05/12/18 02:45 86 27 115/53 (73) 99 05/12/18 02:45 86 115/53 05/12/18 02:30 74 27 114/57 (76) 99 112/50 (70) 05/12/18 02:15 74 27 111/49 (69) 99 05/12/18 02:00 73 05/12/18 02:00 73 27 113/59 (77) 99 111/50 (70) 05/12/18 01:45 73 27 110/50 (70) 99 05/12/18 01:30 74 23 112/59 (76) 99 113/51 (71) 05/12/18 01:15 83 28 115/51 (72) 99 05/12/18 01:00 84 27 114/58 (76) 99 117/51 (73) 618 00:45 84 28 117/51 (73) 99 618 00:30 86 22 115/56 (75) 99 123/52 (75) 18 00:30 86 123/52 618 00:15 75 27 120/50 (73) 100 05/12/18 00:04 100 50 05/12/18 00:00 55 05/12/18 00:00 99.0 85 27 113/58 (76) 100 130/53 (78) 05/12/18 00:00 85 05/11/18 23:45 75 28 129/52 (77) 100 05/11/18 23:30 76 28 118/56 (76) 100 132/54 (80) 05/11/18 23:30 76 132/54 05/11/18 23:15 75 28 128/53 (78) 100 05/11/18 23:00 75 28 113/58 (76) 100 131/54 (79) 05/11/18 22:45 75 28 127/52 (77) 100 18 22:45 75 127/52 05/11/18 22:30 75 28 113/60 (77) 100 130/53 (78) 05/11/18 22:15 85 28 136/55 (82) 100 05/11/18 22:00 85 29 117/62 (80) 100 136/56 (82) 05/11/18 22:00 85 05/11/18 22:00 85 136/56 05/11/18 21:45 86 28 135/57 (83) 100 05/11/18 21:30 85 29 119/65 (83) 100 138/57 (84) 05/11/18 21:21 85 127/54 05/11/18 21:15 76 30 134/55 (81) 100 618 21:00 76 29 118/57 (77) 100 131/55 (80) 05/11/18 20:45 76 28 134/55 (81) 100 618 20:45 76 134/55 18 20:30 82 28 120/61 (80) 100 137/57 (83) 05/11/18 20:30 82 137/57 6/24/18 20:23 77 137/55 05/11/18 20:15 78 29 132/51 (78) 100 05/11/18 20:00 79 05/11/18 20:00 55 05/11/18 20:00 98.7 79 29 123/58 (79) 100 133/52 (79) 05/11/18 20:00 79 133/52 05/11/18 19:45 79 28 134/52 (79) 100 05/11/18 19:35 100 55 05/11/18 19:30 78 30 121/62 (81) 100 134/52 (79) 05/11/18 19:30 78 134/52 05/11/18 19:15 80 30 139/53 (81) 99 05/11/18 19:00 80 30 132/64 (86) 99 143/55 (84) 05/11/18 19:00 80 143/55 05/11/18 19:00 80 143/55 05/11/18 18:00 76 05/11/18 16:04 84 118/46 05/11/18 16:00 98.5 72 7 102/55 (71) 99 108/39 (62) 05/11/18 16:00 72 05/11/18 16:00 65 (Mally Terry) -: 05/12/18 0405 05/12/18 0405 Imaging Last Impressions Brain MRI 05/12/18 0000 Signed Impressions: CONCLUSION: 1. Findings suspicious for diffuse anoxic event. Chest X-Ray 05/11/18 0600 Signed Impressions: CONCLUSION: No significant change. Bilateral alveolar opacities remain most characteristic of pulmonary edema. Head CT 05/09/18426 Signed Impressions: CONCLUSION: Atrophy, with moderate motion artifact otherwise negative for an a cute process. Juanjo Rodriguez MD FACR Abdomen/Pelvis CT 05/09/18426 Signed Impressions: Moderate vascular calcifications are noted. CONCLUSION: 1. Bibasilar parental changes developing airspace disease right lung 2. There is no pneumothorax 3. Moderate gaseous distention of probably: Without obstruction. 4. There are no inflammatory changes in the abdomen 5. Gallstone, neck of the gallbladder gallbladder wall thickening (Mally Terry) Physical Exam General Appearance: No Acute Distress (Mally Terry) Neck Neck Exam: Neck Supple (Mally Terry) Pulmonary Resp Exam: Rhonchi, Diminished Breath Sounds (Mally Terry) Cardiology CV Exam: Regular (Mally Terry) Gastrointestinal/Abdomen GI Exam: Soft, Non-Tender, Bowel Sounds Present (Mally Terry) Integumentary Skin Exam: Dry, Cool (Mally Terry) Extremeties Extremities Exam: Trace Edema (Mally Terry) Neurologic Neuro Exam: Comatose (Mally Terry) Assessment/Plan Problem List: (1) Acute kidney injury ICD Codes: N17.9 - Acute kidney failure, unspecified Plan: CONNOR most likely ATN from cardiac arrest and poor renal perfusion Oliguric: 425cc UOP/24 hours. Remains on pressor support Seen during hemodialysis, 3 K bath Continue to follow goals of care with family. (2) Respiratory failure ICD Codes: J96.90 - Respiratory failure, unspecified, unspecified whether with hypoxia or hypercapnia Plan: Intubated and mild sedation (Mally Terry) Problem List: (1) Acute kidney injury ICD Codes: N17.9 - Acute kidney failure, unspecified Plan: CONNOR most likely ATN from cardiac arrest and poor renal perfusion Oliguric: 425cc UOP/24 hours. Remains on pressor support Seen during hemodialysis, 3 K bath Continue to follow goals of care with family. Patient seen and examined, agree with above. Patient has CONNOR, most likely due to ATN from Hypotension and cardiac arrest. (2) Respiratory failure ICD Codes: J96.90 - Respiratory failure, unspecified, unspecified whether with hypoxia or hypercapnia Plan: Intubated and mild sedation (Margaux Sheriff MD) Mally Terry May 12, 2018 15:44 Margaux Sheriff MD May 12, 2018 22:26
--- NOTE | 2018-05-12 16:43 | HHI.PR ---
Review/Management Diagnosis Severe anoxic encephalopathy. --prognosis very poor Diagnosis/Plan: Subjective Subjective Comments No acute events reported Active Medications Current Medications Medications (Trade) Dose Ordered Sig/Yasmeen Route Start Time Stop Time Status Last Admin (Dilaudid Pf Inj) 1 mg ONCE ONCE IV PUSH 05/12/18 17:00 05/12/18 17:01 (Ativan Inj) 2 mg ONCE ONCE IV PUSH 05/12/18 17:00 05/12/18 17:01 (Levsin Inj) 0.25 mg ONCE ONCE IV PUSH 05/12/18 17:00 05/12/18 17:01 (Dilaudid Pf Inj) 1 mg ONCE ONCE IV PUSH 05/12/18 17:30 05/12/18 17:31 (Ativan Inj) 2 mg ONCE ONCE IV PUSH 05/12/18 17:30 05/12/18 17:31 (Dilaudid Pf Inj) 0.75 mg Q4H IV PUSH 05/12/18 21:00 (Dilaudid Pf Inj) 0.75 mg Q30M PRN IV PUSH 05/12/18 18:00 (Dilaudid Pf Inj) 1 mg Q30M PRN IV PUSH 05/12/18 18:00 (Ativan Inj) 1 mg Q4H IV PUSH 05/12/18 21:00 (Ativan Inj) 1 mg Q1H PRN IV PUSH 05/12/18 18:00 (Ativan Inj) 2 mg Q1H PRN IV PUSH 05/12/18 18:00 (Ativan Inj) 2 mg Q15M PRN IV PUSH 05/12/18 17:30 (Levsin Inj) 0.25 mg Q4H PRN IV PUSH 05/12/18 21:00 (Tylenol Supp) 650 mg Q4H PRN RECTAL 05/12/18 17:00 (Lasix Inj) 20 mg Q6H PRN IV PUSH 05/12/18 17:00 (Dulcolax Supp) 10 mg DAILY PRN RECTAL 05/12/18 17:00 Allergies Allergies Coded Allergies Penicillins (Verified Allergy, Severe, 05/09/18) Exam I&O / VS 05/12/18 05/12/18 05/13/18 15:00 23:00 07:00 Intake Total 200 ml Output Total 0 ml Balance 200 ml 0 ml Intake IV Total 200 ml Hemodialysis 0 ml Vital Signs Date Time Temp Pulse Resp B/P (MAP) Pulse Ox O2 Delivery O2 Flow Rate FiO2 05/12/18 15:10 94 40 05/12/18 13:21 100 40 05/12/18 12:30 100 100 05/12/18 11:08 98 40 05/12/18 07:23 96 40 05/12/18 06:15 71 107/50 05/12/18 06:00 71 05/12/18 04:15 85 112/53 05/12/18 04:00 55 05/12/18 04:00 73 05/12/18 04:00 99.2 73 26 106/58 (74) 99 109/49 (69) 05/12/18 03:45 73 26 109/49 (69) 99 05/12/18 03:32 99 50 05/12/18 03:30 74 27 111/55 (73) 99 112/49 (70) 05/12/18 03:15 86 27 113/52 (72) 98 05/12/18 03:00 73 27 112/55 (74) 99 110/48 (68) 05/12/18 02:45 86 27 115/53 (73) 99 05/12/18 02:45 86 115/53 05/12/18 02:30 74 27 114/57 (76) 99 112/50 (70) 05/12/18 02:15 74 27 111/49 (69) 99 05/12/18 02:00 73 05/12/18 02:00 73 27 113/59 (77) 99 111/50 (70) 05/12/18 01:45 73 27 110/50 (70) 99 05/12/18 01:30 74 23 112/59 (76) 99 113/51 (71) 05/12/18 01:15 83 28 115/51 (72) 99 05/12/18 01:00 84 27 114/58 (76) 99 117/51 (73) 05/12/18 00:45 84 28 117/51 (73) 99 05/12/18 00:30 86 22 115/56 (75) 99 123/52 (75) 05/12/18 00:30 86 123/52 05/12/18 00:15 75 27 120/50 (73) 100 05/12/18 00:04 100 50 05/12/18 00:00 55 6/25/18 00:00 99.0 85 27 113/58 (76) 100 130/53 (78) 05/12/18 00:00 85 05/11/18 23:45 75 28 129/52 (77) 100 618 23:30 76 28 118/56 (76) 100 132/54 (80) 05/11/18 23:30 76 132/54 05/11/18 23:15 75 28 128/53 (78) 100 05/11/18 23:00 75 28 113/58 (76) 100 131/54 (79) 05/11/18 22:45 75 28 127/52 (77) 100 05/11/18 22:45 75 127/52 05/11/18 22:30 75 28 113/60 (77) 100 130/53 (78) 05/11/18 22:15 85 28 136/55 (82) 100 05/11/18 22:00 85 29 117/62 (80) 100 136/56 (82) 05/11/18 22:00 85 05/11/18 22:00 85 136/56 05/11/18 21:45 86 28 135/57 (83) 100 05/11/18 21:30 85 29 119/65 (83) 100 138/57 (84) 05/11/18 21:21 85 127/54 05/11/18 21:15 76 30 134/55 (81) 100 05/11/18 21:00 76 29 118/57 (77) 100 131/55 (80) 05/11/18 20:45 76 28 134/55 (81) 100 05/11/18 20:45 76 134/55 05/11/18 20:30 82 28 120/61 (80) 100 137/57 (83) 05/11/18 20:30 82 137/57 05/11/18 20:23 77 137/55 05/11/18 20:15 78 29 132/51 (78) 100 05/11/18 20:00 79 618 20:00 55 05/11/18 20:00 98.7 79 29 123/58 (79) 100 133/52 (79) 05/11/18 20:00 79 133/52 05/11/18 19:45 79 28 134/52 (79) 100 6/18 19:35 100 55 05/11/18 19:30 78 30 121/62 (81) 100 134/52 (79) 05/11/18 19:30 78 134/52 05/11/18 19:15 80 30 139/53 (81) 99 05/11/18 19:00 80 30 132/64 (86) 99 143/55 (84) 05/11/18 19:00 80 143/55 05/11/18 19:00 80 143/55 05/11/18 18:00 76 Exam Comments nonresponsive/ sedated pupils 2 mm symmetric and reactive MOTOR--no spontaneous limb movement. No posturing Objective Radiology Results MRI brain--diffusion abnormality diffusely in cerebral cortex c/w diffuse anoxic injury Micro and Labs Laboratory Tests Test 05/11/18 21:50 05/12/18 04:05 05/12/18 05:48 White Blood Count 8.8 6.3 Red Blood Count 2.43 2.31 Hemoglobin 8.3 7.9 Hematocrit 23.9 22.7 Mean Corpuscular Volume 98.4 98.2 Mean Corpuscular Hemoglobin 34.1 34.1 Mean Corpuscular Hemoglobin Concent 34.7 34.7 Red Cell Distribution Width 15.4 15.4 Platelet Count 113 93 Mean Platelet Volume 9.3 9.6 Neutrophils (%) (Auto) 91.9 91.4 Lymphocytes (%) (Auto) 4.0 5.0 Monocytes (%) (Auto) 3.9 3.6 Eosinophils (%) (Auto) 0.1 0.0 Basophils (%) (Auto) 0.1 0.0 Neutrophils # (Auto) 8.1 5.8 Lymphocytes # (Auto) 0.4 0.3 Monocytes # (Auto) 0.3 0.2 Eosinophils # (Auto) 0.0 0.0 Basophils # (Auto) 0.0 0.0 CBC Comment DIFF FINAL AUTO DIFF Differential Comment FINAL DIFF MANUAL Differential Total Cells Counted 100 Neutrophils % (Manual) 76 Band Neutrophils % 20 Lymphocytes % 2 Monocytes % 2 Neutrophils # (Manual) 6.0 Toxic Granulation 1+ Dohle Bodies PRESENT Platelet Estimate LOW Platelet Morphology Comment ENLARGED Prothrombin Time 12.2 Prothromb Time International Ratio 1.2 Activated Partial Thromboplast Time 41.2 Blood Urea Nitrogen 62 Creatinine 3.48 Random Glucose 175 Total Protein 4.6 Albumin 2.0 Calcium Level 6.1 Phosphorus Level 6.4 Magnesium Level 2.2 Alkaline Phosphatase 32 Aspartate Amino Transf (AST/SGOT) 109 Alanine Aminotransferase (ALT/SGPT) 57 Total Bilirubin 0.5 Sodium Level 133 Potassium Level 3.7 Chloride Level 93 Carbon Dioxide Level 24.9 Anion Gap 15 Estimat Glomerular Filtration Rate 17 Protein Corrected Calcium 7.3 Random Vancomycin Level 17.2 Blood Gas Puncture Site ART LINE Blood Gas Patient Temperature 98.6 Blood Gas HCO3 27 Blood Gas Base Excess 3.0 Blood Gas Oxygen Saturation 96 Arterial Blood pH 7.44 Arterial Blood Partial Pressure CO2 41 Arterial Blood Partial Pressure O2 110 Arterial Blood Oxygen Content 11.0 Arterial Blood Carboxyhemoglobin 1.0 Arterial Blood Methemoglobin 1.2 Blood Gas Hemoglobin 8.0 Oxygen Delivery Device VENTILATOR Blood Gas Ventilator Setting SEE COMMENTS Blood Gas Inspired Oxygen 50 Date/Time Source Procedure Growth Status 05/10/18 08:46 Blood Peripheral Aerobic Blood Culture - Preliminary NO GROWTH IN 2 DAYS Resulted 05/10/18 08:46 Blood Peripheral Anaerobic Blood Culture - Preliminary NO GROWTH IN 2 DAYS Resulted 05/09/18 07:15 Sputum Endotracheal Gram Stain - Final Complete 05/09/18 07:15 Sputum Endotracheal Sputum Culture - Final MODERATE GROWTH NORMAL RESPIRATORY ANITA Complete Hang Perez MD PhD May 12, 2018 16:43
--- NOTE | 2018-05-12 16:44 | HHI.HCPN ---
Reason for visit a. To assist with evaluation and management of symptoms including: Encephalopathy b. To assist medical decision maker(s) with: better understanding of current medical conditions; weighing benefits/burdens of medical treatment options; making medical treatment decisions. . Subjective/Interval History Mr. Meeks is a 82-year-old male long-term resident who presented to [facility] ED on 05/09/2018 status post PEA/asystole arrest. The length of downtime is unknown. Patient underwent ACLS protocol, receiving epi 4 with ROSC. Follow-up visit for symptom management and clarification of medical treatment goals. Patient seen and assessed in [facility], room 504. He is being dialyzed. He remains intubated on mechanical ventilation FiO2 40%; PEEP 10. Requiring ongoing pressor support; Levophed 10 mcg/min. Follow-up chest x-ray yesterday 05/11/2018 showed no significant change. Bilateral alveolar opacities remain most characteristic of pulmonary edema. WBC: 6.3, hemoglobin 7.9, hematocrit 22.7, platelets 93, neutrophils 91.4%, sodium 133, potassium 3.7, chloride 93, glucose 175, calcium 6.1, prot corrected calcium 7.3, phosphorus 6.4, magnesium 2.2, BUN 62, creatinine 3.48, GFR 17, total bilirubin 0.5, AST 109, ALT 57, alkaline phosphatase 32. Blood and sputum cultures remain negative to date. An MRI of the brain findings suspicious for diffuse anoxic event. Palliative care met with patient's daughter. She has stated that she has had previous conversations with her father and he told her he would not want life prolonging procedures in this type of situation. She would like to honor his previously expressed wishes and does not want further aggressive measures taken. She has elected to proceed with withdrawal of artificial life support with transition to comfort focused care. . Family/friend interactions See interval history. . Advance Directives Health Care Surrogate: Copy in medical record Durable Power of Bean Weigher: Copy in medical record Advance Directive Specifics Date completed: 02/22/2015 . Health Care Surrogate(s): Patient's daughter, Steffany Sexton, is the designated healthcare surrogate decision-maker. . Documented care wishes: Patient has designated his daughter, Steffany Sexton, as his POA and healthcare surrogate decision maker. . . Significant change in goals: Family has decided to proceed with withdrawal of life support and transition to comfort focused care. . Objective Vital Signs Date Time Temp Pulse Resp B/P (MAP) Pulse Ox O2 Delivery O2 Flow Rate FiO2 05/12/18 15:10 94 40 05/12/18 13:21 100 40 05/12/18 12:30 100 100 05/12/18 11:08 98 40 05/12/18 07:23 96 40 05/12/18 06:15 71 107/50 05/12/18 06:00 71 05/12/18 04:15 85 112/53 05/12/18 04:00 55 05/12/18 04:00 73 05/12/18 04:00 99.2 73 26 106/58 (74) 99 109/49 (69) 05/12/18 03:45 73 26 109/49 (69) 99 05/12/18 03:32 99 50 05/12/18 03:30 74 27 111/55 (73) 99 112/49 (70) 05/12/18 03:15 86 27 113/52 (72) 98 05/12/18 03:00 73 27 112/55 (74) 99 110/48 (68) 05/12/18 02:45 86 27 115/53 (73) 99 05/12/18 02:45 86 115/53 05/12/18 02:30 74 27 114/57 (76) 99 112/50 (70) 05/12/18 02:15 74 27 111/49 (69) 99 05/12/18 02:00 73 05/12/18 02:00 73 27 113/59 (77) 99 111/50 (70) 05/12/18 01:45 73 27 110/50 (70) 99 18 01:30 74 23 112/59 (76) 99 113/51 (71) 05/12/18 01:15 83 28 115/51 (72) 99 05/12/18 01:00 84 27 114/58 (76) 99 117/51 (73) 05/12/18 00:45 84 28 117/51 (73) 99 05/12/18 00:30 86 22 115/56 (75) 99 123/52 (75) 05/12/18 00:30 86 123/52 05/12/18 00:15 75 27 120/50 (73) 100 05/12/18 00:04 100 50 618 00:00 55 6 00:00 99.0 85 27 113/58 (76) 100 130/53 (78) 18 00:00 85 618 23:45 75 28 129/52 (77) 100 618 23:30 76 28 118/56 (76) 100 132/54 (80) 05/11/18 23:30 76 132/54 05/11/18 23:15 75 28 128/53 (78) 100 62418 23:00 75 28 113/58 (76) 100 131/54 (79) 18 22:45 75 28 127/52 (77) 100 6 22:45 75 127/52 05/11/18 22:30 75 28 113/60 (77) 100 130/53 (78) 05/11/18 22:15 85 28 136/55 (82) 100 05/11/18 22:00 85 29 117/62 (80) 100 136/56 (82) 05/11/18 22:00 85 05/11/18 22:00 85 136/56 05/11/18 21:45 86 28 135/57 (83) 100 05/11/18 21:30 85 29 119/65 (83) 100 138/57 (84) 05/11/18 21:21 85 127/54 05/11/18 21:15 76 30 134/55 (81) 100 05/11/18 21:00 76 29 118/57 (77) 100 131/55 (80) 05/11/18 20:45 76 28 134/55 (81) 100 618 20:45 76 134/55 05/11/18 20:30 82 28 120/61 (80) 100 137/57 (83) 05/11/18 20:30 82 137/57 05/11/18 20:23 77 137/55 6 20:15 78 29 132/51 (78) 100 618 20:00 79 618 20:00 55 618 20:00 98.7 79 29 123/58 (79) 100 133/52 (79) 05/11/18 20:00 79 133/52 618 19:45 79 28 134/52 (79) 100 05/11/18 19:35 100 55 05/11/18 19:30 78 30 121/62 (81) 100 134/52 (79) 05/11/18 19:30 78 134/52 05/11/18 19:15 80 30 139/53 (81) 99 05/11/18 19:00 80 30 132/64 (86) 99 143/55 (84) 05/11/18 19:00 80 143/55 05/11/18 19:00 80 143/55 05/11/18 18:00 76 Intake & Output 05/12/18 05/12/18 06:59 18:59 Intake Total 3135.5 ml 200 ml Output Total 250 ml 0 ml Balance 2885.5 ml 200 ml Intake IV Total 3135.5 ml 200 ml Output Urine Total 250 ml Hemodialysis 0 ml # Bowel Movements 1 . Physical Exam CONSTITUTIONAL/GENERAL: This is an elderly male patient who is currently intubated on mechanical ventilation, requiring pressor support. TUBES/LINES/DRAINS: PIV 2, ETT, OGT, Right IJ CVL, Right arterial line, Ramírez catheter SKIN: No jaundice, rashes, or lesions. Generalized pallor. Bruising on upper extremities bilaterally.. Skin temperature appropriate. Not diaphoretic. HEAD: Atraumatic. Normocephalic. EYES: Pupils equal and round and reactive. No scleral icterus. No injection or drainage. Fundi not examined. ENT: Unable to assess hearing. Nose without bleeding or purulent drainage. Unable to visualize throat secondary to tubes. NECK: Trachea midline. Supple, nontender. No palpable thyroid enlargement or nodularity. CARDIOVASCULAR: Regular rate and rhythm. No JVD. Peripheral pulses symmetric. RESPIRATORY/CHEST: Intubated on mechanical ventilation. FiO2 40%. Coarse air exchange bilaterally. GASTROINTESTINAL: Abdomen soft, non-tender, nondistended. Bowel sounds present. GENITOURINARY: Without palpable bladder distension. Ramírez catheter in place. MUSCULOSKELETAL: Extremities without clubbing or cyanosis. 3+ edema in lower extremities bilaterally. LYMPHATICS: No palpable cervical or supraclavicular adenopathy. NEUROLOGICAL: Sedated on Propofol; unresponsive. PSYCHIATRIC: Unable to assess given current clinical condition. . Diagnostic Tests Laboratory Laboratory Tests Test 05/09/18 21:15 05/09/18 22:15 05/10/18 00:52 05/10/18 03:55 Blood Urea Nitrogen 35 MG/DL (7-18) 38 MG/DL (7-18) Creatinine 3.24 MG/DL (0.60-1.30) 3.76 MG/DL (0.60-1.30) Random Glucose 293 MG/DL (74-106) 407 MG/DL (74-106) Total Protein 5.1 GM/DL (6.4-8.2) 5.0 GM/DL (6.4-8.2) Albumin 2.1 GM/DL (3.4-5.0) 2.1 GM/DL (3.4-5.0) Calcium Level 6.6 MG/DL (8.5-10.1) 6.4 MG/DL (8.5-10.1) Alkaline Phosphatase 51 U/L (45-117) 47 U/L (45-117) Aspartate Amino Transf (AST/SGOT) 273 U/L (15-37) 223 U/L (15-37) Alanine Aminotransferase (ALT/SGPT) 97 U/L (12-78) 89 U/L (12-78) Total Bilirubin 0.6 MG/DL (0.2-1.0) 0.6 MG/DL (0.2-1.0) Sodium Level 136 MEQ/L (136-145) 131 MEQ/L (136-145) Potassium Level 5.4 MEQ/L (3.5-5.1) 6.0 MEQ/L (3.5-5.1) Chloride Level 102 MEQ/L (98-107) 99 MEQ/L (98-107) Carbon Dioxide Level 18.5 MEQ/L (21.0-32.0) 15.1 MEQ/L (21.0-32.0) Anion Gap 16 MEQ/L (5-15) 17 MEQ/L (5-15) Estimat Glomerular Filtration Rate 18 ML/MIN (>89) 16 ML/MIN (>89) Protein Corrected Calcium 7.6 MG/DL (8.5-10.1) 7.4 MG/DL (8.5-10.1) Troponin I GREATER THAN 40.00 NG/ML Activated Partial Thromboplast Time 148.7 SEC (24.3-30.1) 56.3 SEC (24.3-30.1) White Blood Count 24.1 TH/MM3 (4.0-11.0) Red Blood Count 3.21 MIL/MM3 (4.50-5.90) Hemoglobin 10.7 GM/DL (13.0-17.0) Hematocrit 33.3 % (39.0-51.0) Mean Corpuscular Volume 103.6 FL (80.0-100.0) Mean Corpuscular Hemoglobin 33.4 PG (27.0-34.0) Mean Corpuscular Hemoglobin Concent 32.2 % (32.0-36.0) Red Cell Distribution Width 16.1 % (11.6-17.2) Platelet Count 331 TH/MM3 (150-450) Mean Platelet Volume 9.4 FL (7.0-11.0) Neutrophils (%) (Auto) 90.0 % (16.0-70.0) Lymphocytes (%) (Auto) 5.6 % (9.0-44.0) Monocytes (%) (Auto) 4.1 % (0.0-8.0) Eosinophils (%) (Auto) 0.0 % (0.0-4.0) Basophils (%) (Auto) 0.3 % (0.0-2.0) Neutrophils # (Auto) 21.7 TH/MM3 (1.8-7.7) Lymphocytes # (Auto) 1.3 TH/MM3 (1.0-4.8) Monocytes # (Auto) 1.0 TH/MM3 (0-0.9) Eosinophils # (Auto) 0.0 TH/MM3 (0-0.4) Basophils # (Auto) 0.1 TH/MM3 (0-0.2) CBC Comment DIFF FINAL Differential Comment Phosphorus Level 8.0 MG/DL (2.5-4.9) Magnesium Level 1.8 MG/DL (1.5-2.5) Lactic Acid Level 6.8 mmol/L (0.4-2.0) Random Vancomycin Level 12.9 COMMENT Phenytoin (Dilantin) Level 11.2 MCG/ML (10.0-20.0) Test 05/10/18 04:18 05/10/18 08:41 05/10/18 10:20 05/10/18 12:30 Blood Gas Puncture Site ART LINE ART LINE Blood Gas Patient Temperature 98.6 98.6 Blood Gas HCO3 14 mmol/L (22-26) 21 mmol/L (22-26) Blood Gas Base Excess -13.0 mmol/L (-2-2) -5.4 mmol/L (-2-2) Blood Gas Oxygen Saturation 92 % (90-100) 92 % (90-100) Arterial Blood pH 7.13 (7.380-7.420) 7.24 (7.380-7.420) Arterial Blood Partial Pressure CO2 45 mmHg (38-42) 50 mmHg (38-42) Arterial Blood Partial Pressure O2 84 mmHg (61-120) 77 mmHg (61-120) Arterial Blood Oxygen Content 13.5 Vol % (12.0-20.0) 12.2 Vol % (12.0-20.0) Arterial Blood Carboxyhemoglobin 1.0 % (0-4) 1.2 % (0-4) Arterial Blood Methemoglobin 1.5 % (0-2) 1.2 % (0-2) Blood Gas Hemoglobin 10.4 G/DL (12.0-16.0) 9.3 G/DL (12.0-16.0) Oxygen Delivery Device VENT VENTILATOR Blood Gas Ventilator Setting PRVC/AC 20/480/12 PRVC/AC480/30 Blood Gas Inspired Oxygen 70 % 65 % Activated Partial Thromboplast Time 83.0 SEC (24.3-30.1) Blood Urea Nitrogen 47 MG/DL (7-18) Creatinine 3.93 MG/DL (0.60-1.30) Random Glucose 311 MG/DL (74-106) Total Protein 4.6 GM/DL (6.4-8.2) Calcium Level 6.4 MG/DL (8.5-10.1) Sodium Level 134 MEQ/L (136-145) Potassium Level 4.5 MEQ/L (3.5-5.1) Chloride Level 98 MEQ/L (98-107) Carbon Dioxide Level 21.8 MEQ/L (21.0-32.0) Anion Gap 14 MEQ/L (5-15) Estimat Glomerular Filtration Rate 15 ML/MIN (>89) Protein Corrected Calcium 7.6 MG/DL (8.5-10.1) Test 6/23/18 16:00 05/10/18 16:45 05/11/18 00:45 05/11/18 05:45 Activated Partial Thromboplast Time 57.4 SEC (24.3-30.1) 55.5 SEC (24.3-30.1) 51.2 SEC (24.3-30.1) Hepatitis A IgM Antibody NONREACTIVE (NONREACTIVE) Hepatitis B Surface Antigen NONREACTIVE (NONREACTIVE) Hepatitis B Core IgM Antibody NONREACTIVE (NONREACTIVE) Hepatitis C IgG Antibody NONREACTIVE (NONREACTIVE) White Blood Count 10.0 TH/MM3 (4.0-11.0) Red Blood Count 2.49 MIL/MM3 (4.50-5.90) Hemoglobin 8.5 GM/DL (13.0-17.0) Hematocrit 24.4 % (39.0-51.0) Mean Corpuscular Volume 97.9 FL (80.0-100.0) Mean Corpuscular Hemoglobin 34.1 PG (27.0-34.0) Mean Corpuscular Hemoglobin Concent 34.8 % (32.0-36.0) Red Cell Distribution Width 15.8 % (11.6-17.2) Platelet Count 136 TH/MM3 (150-450) Mean Platelet Volume 9.5 FL (7.0-11.0) Neutrophils (%) (Auto) 93.8 % (16.0-70.0) Lymphocytes (%) (Auto) 3.4 % (9.0-44.0) Monocytes (%) (Auto) 2.6 % (0.0-8.0) Eosinophils (%) (Auto) 0.0 % (0.0-4.0) Basophils (%) (Auto) 0.2 % (0.0-2.0) Neutrophils # (Auto) 9.4 TH/MM3 (1.8-7.7) Lymphocytes # (Auto) 0.3 TH/MM3 (1.0-4.8) Monocytes # (Auto) 0.3 TH/MM3 (0-0.9) Eosinophils # (Auto) 0.0 TH/MM3 (0-0.4) Basophils # (Auto) 0.0 TH/MM3 (0-0.2) CBC Comment DIFF FINAL Differential Comment Prothrombin Time 14.1 SEC (9.8-11.6) Prothromb Time International Ratio 1.4 RATIO Blood Urea Nitrogen 44 MG/DL (7-18) Creatinine 3.08 MG/DL (0.60-1.30) Random Glucose 209 MG/DL (74-106) Total Protein 4.9 GM/DL (6.4-8.2) Albumin 2.3 GM/DL (3.4-5.0) Calcium Level 6.0 MG/DL (8.5-10.1) Phosphorus Level 5.2 MG/DL (2.5-4.9) Magnesium Level 1.9 MG/DL (1.5-2.5) Alkaline Phosphatase 32 U/L (45-117) Aspartate Amino Transf (AST/SGOT) 141 U/L (15-37) Alanine Aminotransferase (ALT/SGPT) 63 U/L (12-78) Total Bilirubin 0.6 MG/DL (0.2-1.0) Sodium Level 137 MEQ/L (136-145) Potassium Level 3.6 MEQ/L (3.5-5.1) Chloride Level 97 MEQ/L (98-107) Carbon Dioxide Level 25.4 MEQ/L (21.0-32.0) Anion Gap 15 MEQ/L (5-15) Estimat Glomerular Filtration Rate 20 ML/MIN (>89) Lactic Acid Level 2.7 mmol/L (0.4-2.0) Protein Corrected Calcium 7.0 MG/DL (8.5-10.1) Phenytoin (Dilantin) Level 12.3 MCG/ML (10.0-20.0) Test 05/11/18 05:54 05/11/18 21:50 05/12/18 04:05 05/12/18 05:48 Blood Gas Puncture Site ART LINE ART LINE Blood Gas Patient Temperature 98.6 98.6 Blood Gas HCO3 26 mmol/L (22-26) 27 mmol/L (22-26) Blood Gas Base Excess 1.7 mmol/L (-2-2) 3.0 mmol/L (-2-2) Blood Gas Oxygen Saturation 94 % (90-100) 96 % (90-100) Arterial Blood pH 7.42 (7.380-7.420) 7.44 (7.380-7.420) Arterial Blood Partial Pressure CO2 40 mmHg (38-42) 41 mmHg (38-42) Arterial Blood Partial Pressure O2 89 mmHg (61-120) 110 mmHg (61-120) Arterial Blood Oxygen Content 13.1 Vol % (12.0-20.0) 11.0 Vol % (12.0-20.0) Arterial Blood Carboxyhemoglobin 1.3 % (0-4) 1.0 % (0-4) Arterial Blood Methemoglobin 1.3 % (0-2) 1.2 % (0-2) Blood Gas Hemoglobin 9.8 G/DL (12.0-16.0) 8.0 G/DL (12.0-16.0) Oxygen Delivery Device VENTILATOR VENTILATOR Blood Gas Ventilator Setting PRVC/AC30/520/ SEE COMMENTS Blood Gas Inspired Oxygen 65 % 50 % White Blood Count 8.8 TH/MM3 (4.0-11.0) 6.3 TH/MM3 (4.0-11.0) Red Blood Count 2.43 MIL/MM3 (4.50-5.90) 2.31 MIL/MM3 (4.50-5.90) Hemoglobin 8.3 GM/DL (13.0-17.0) 7.9 GM/DL (13.0-17.0) Hematocrit 23.9 % (39.0-51.0) 22.7 % (39.0-51.0) Mean Corpuscular Volume 98.4 FL (80.0-100.0) 98.2 FL (80.0-100.0) Mean Corpuscular Hemoglobin 34.1 PG (27.0-34.0) 34.1 PG (27.0-34.0) Mean Corpuscular Hemoglobin Concent 34.7 % (32.0-36.0) 34.7 % (32.0-36.0) Red Cell Distribution Width 15.4 % (11.6-17.2) 15.4 % (11.6-17.2) Platelet Count 113 TH/MM3 (150-450) 93 TH/MM3 (150-450) Mean Platelet Volume 9.3 FL (7.0-11.0) 9.6 FL (7.0-11.0) Neutrophils (%) (Auto) 91.9 % (16.0-70.0) 91.4 % (16.0-70.0) Lymphocytes (%) (Auto) 4.0 % (9.0-44.0) 5.0 % (9.0-44.0) Monocytes (%) (Auto) 3.9 % (0.0-8.0) 3.6 % (0.0-8.0) Eosinophils (%) (Auto) 0.1 % (0.0-4.0) 0.0 % (0.0-4.0) Basophils (%) (Auto) 0.1 % (0.0-2.0) 0.0 % (0.0-2.0) Neutrophils # (Auto) 8.1 TH/MM3 (1.8-7.7) 5.8 TH/MM3 (1.8-7.7) Lymphocytes # (Auto) 0.4 TH/MM3 (1.0-4.8) 0.3 TH/MM3 (1.0-4.8) Monocytes # (Auto) 0.3 TH/MM3 (0-0.9) 0.2 TH/MM3 (0-0.9) Eosinophils # (Auto) 0.0 TH/MM3 (0-0.4) 0.0 TH/MM3 (0-0.4) Basophils # (Auto) 0.0 TH/MM3 (0-0.2) 0.0 TH/MM3 (0-0.2) CBC Comment DIFF FINAL AUTO DIFF Differential Comment FINAL DIFF MANUAL Differential Total Cells Counted 100 Neutrophils % (Manual) 76 % (16-70) Band Neutrophils % 20 % (0-6) Lymphocytes % 2 % (9-44) Monocytes % 2 % (0-8) Neutrophils # (Manual) 6.0 TH/MM3 (1.8-7.7) Toxic Granulation 1+ (NORMAL) Dohle Bodies PRESENT (NONE SEEN) Platelet Estimate LOW (NORMAL) Platelet Morphology Comment ENLARGED (NORMAL) Prothrombin Time 12.2 SEC (9.8-11.6) Prothromb Time International Ratio 1.2 RATIO Activated Partial Thromboplast Time 41.2 SEC (24.3-30.1) Blood Urea Nitrogen 62 MG/DL (7-18) Creatinine 3.48 MG/DL (0.60-1.30) Random Glucose 175 MG/DL (74-106) Total Protein 4.6 GM/DL (6.4-8.2) Albumin 2.0 GM/DL (3.4-5.0) Calcium Level 6.1 MG/DL (8.5-10.1) Phosphorus Level 6.4 MG/DL (2.5-4.9) Magnesium Level 2.2 MG/DL (1.5-2.5) Alkaline Phosphatase 32 U/L (45-117) Aspartate Amino Transf (AST/SGOT) 109 U/L (15-37) Alanine Aminotransferase (ALT/SGPT) 57 U/L (12-78) Total Bilirubin 0.5 MG/DL (0.2-1.0) Sodium Level 133 MEQ/L (136-145) Potassium Level 3.7 MEQ/L (3.5-5.1) Chloride Level 93 MEQ/L (98-107) Carbon Dioxide Level 24.9 MEQ/L (21.0-32.0) Anion Gap 15 MEQ/L (5-15) Estimat Glomerular Filtration Rate 17 ML/MIN (>89) Protein Corrected Calcium 7.3 MG/DL (8.5-10.1) Random Vancomycin Level 17.2 COMMENT . Result Diagram: 05/12/18 0405 05/12/18 0405 Microbiology Microbiology Date/Time Source Procedure Growth Status 05/10/18 08:46 Blood Peripheral Aerobic Blood Culture - Preliminary NO GROWTH IN 2 DAYS Resulted 05/10/18 08:46 Blood Peripheral Anaerobic Blood Culture - Preliminary NO GROWTH IN 2 DAYS Resulted 05/10/18 08:41 Blood Arterial Line Aerobic Blood Culture - Preliminary NO GROWTH IN 2 DAYS Resulted 05/10/18 08:41 Blood Arterial Line Anaerobic Blood Culture - Preliminary NO GROWTH IN 2 DAYS Resulted . Imaging Last 72 hours Impressions Brain MRI 05/12/18 0000 Signed Impressions: CONCLUSION: 1. Findings suspicious for diffuse anoxic event. Chest X-Ray 05/11/18 0600 Signed Impressions: CONCLUSION: No significant change. Bilateral alveolar opacities remain most characteristic of pulmonary edema. Chest X-Ray 05/10/18 0000 Signed Impressions: CONCLUSION: 1. Stable appearance with bilateral perihilar opacities most characteristic of pulmonary edema. . Procedures 04/08/2018: Intubation 04/08/2018: OGT placed 04/08/2018: Right-sided IJ central line placement 04/08/2018: Right radial arterial line placement. . Assessment and Plan Disease Oriented Problem List: (1) Postoperative cardiac arrest (2) Shock circulatory (3) Pulmonary edema (4) Non-STEMI (non-ST elevated myocardial infarction) (5) Leukocytosis (6) Acute encephalopathy (7) Elevated liver enzymes (8) Respiratory failure (9) Acute kidney injury Symptom Scale: (1) Encephalopathy 0-10 Scale: Unable to quantify Pertinent Non-Medical Issues Psychosocial: Patient was born and raised in [place]. 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 He was to his , Naomi, for approximately 58 years. She 6 weeks ago from complications related to CHF. Together they had 5 children (Pietro, Corey, Jarad, Samm, Tai and Steffany ). Patient's 5 sons live in [place], and his daughter lives locally. The patient moved to [place] approximately 4 weeks ago and has been residing at [facility] [place]. Spiritual: Yazidism anjel Legal:Given patient's clinical condition, he is unable to participate in medical decision making. Patient's daughter, Steffany Sexton, is the designated healthcare surrogate decision-maker. Copies of these documents are accessible in patient's paper chart as well and have been faxed to HIM to be scanned into the patient's EMR. Ethical issues impacting care: No known ethical issues impacting care at this time. . Important Contacts Steffany Sexton, daughter: [phone] . Prognosis Patient is an 82-year-old male who sustained a PEA/asystole arrest at the long-term where he resides. Patient is on responsive and appears to be having seizure activity; he is requiring pressor support. His prognosis is extremely poor; it is unlikely he will survive this hospitalization. . Code Status: No Code Plan * NO CODE * Given patient's clinical condition, he is unable to participate in medical decision making. Patient's daughter, Steffany Sexton, is the designated healthcare surrogate decision-maker. Copies of these documents are accessible in patient' s paper chart as well and have been faxed to HIM to be scanned into the patient' s EMR. * Palliative care met with patient's daughter. She has stated that she has had previous conversations with her father and he told her he would not want life prolonging procedures in this type of situation. She would like to honor his previously expressed wishes and does not want further aggressive measures taken. She has elected to proceed with withdrawal of artificial life support with transition to comfort focused care. Signed exhibits B and C have been placed on the patient's chart; comfort medications have been ordered. * Discussed patient with RN (Larry), Dr. Padilla and Dr. Webb * Symptom management-encephalopathy: Acute encephalopathy with concern for anoxic brain injury, displaying generalized tonic-clonic movements. MRI brain showed findings suspicious for diffuse anoxic event. * Palliative care will continue to follow this patient throughout his hospitalization to establish trust, assist with symptom management and clarification of medical treatment goals. . Attestation To help prompt me to consider important information that might be impacting today's encounter and assessment, information from prior notes written by myself or my colleagues may have been "brought forward" into today's note. My signature on this note, however, is an attestation that I personally performed the exam, history, and/or decision-making noted today, and, unless otherwise indicated, the interactions with patient, family, and staff as well as the review of records all occurred today. I also attest that the listed assessment and stated plan reflect my best clinical judgment today based on the combination of historical information, prior notes, and today's exam/ interactions. When time spent is documented, it refers only to time spent today by the signer, or if indicated, combined time spent today by collaborating physician/nurse practitioner. . Fernanda Jolly May 12, 2018 16:44
[2018-05-12] MEDS ORDERED: FUROSEMIDE 20 MG/2 ML VIAL IV PUSH PRN (17:00)
[2018-05-12] MEDS ORDERED: HYOSCYAMINE 0.5 MG/ML AMP IV PUSH ONE (17:00)
[2018-05-12] MEDS ORDERED: LORazepam 2 MG/ML VIAL IV PUSH ONE ×2 (17:00→17:30)
[2018-05-12] MEDS ORDERED: HYDROmorphone HCL PF 2 MG/ML VIAL IV PUSH ONE ×2 (17:00→17:30)
[2018-05-12] MEDS ORDERED: ACETAMINOPHEN 650 MG SUPP RECTAL PRN (17:00)
[2018-05-12] MEDS ORDERED: BISACODYL 10 MG SUPP RECTAL PRN (17:00)
[2018-05-12] MEDS ORDERED: LORazepam 2 MG/ML VIAL IV PUSH PRN ×3 (17:30→18:00)
[2018-05-12] MEDS ORDERED: HYDROmorphone HCL PF 2 MG/ML VIAL IV PUSH PRN ×2 (18:00)
[2018-05-12] MEDS ORDERED: HYDROmorphone HCL PF 2 MG/ML VIAL IV PUSH SCH (21:00)
[2018-05-12] MEDS ORDERED: HYOSCYAMINE 0.5 MG/ML AMP IV PUSH PRN (21:00)
[2018-05-12] MEDS ORDERED: LORazepam 2 MG/ML VIAL IV PUSH SCH (21:00)
--- NOTE | 2018-05-13 08:21 | MG ---
cc: Ananda Burnett MD DATE: 05/12/2018 CONTINUOUS MONITORING EEG DESCRIPTION: The patient has throughout the entire EEG a burst suppression pattern with bursts lasting about 2-3 seconds, with bifrontal spike wave and sharp waves seen and then on average approximately 25-45 seconds of suppression of the background. There was a prolonged period of about an hour, from 9:50 p.m. on 05/11/2018 to 3:50 a.m. 05/12/2018 that the patient had no bursts and just suppressed background. No major hemisphere asymmetries were noted. This could be consistent with a primary generalized seizure disorder or severe metabolic or anoxic injury. No prolonged seizures were noted. MD JOE Barajas/FRANCINE , 06:43 PM , 09:27 PM
== END 2018-05-12 17:54 | disposition expired | DRG 208 ==
LOC: NEPC 04:19 → NEDA 06:08 → HIMW 10:50
PROVIDERS: ADMIT Internal Medicine Critical Care Medicine; ATTEND Internal Medicine Critical Care Medicine
PROC: 5A1945Z Respiratory Ventilation, 24-96 Consecutive Hours (ICD-10-PCS; principal; 2018-05-09)
PROC: 03HY32Z Insertion of Monitoring Device into Upper Artery, Percutaneous Approach (ICD-10-PCS; 2018-05-09)
PROC: 0BH17EZ Insertion of Endotracheal Airway into Trachea, Via Natural or Artificial Opening (ICD-10-PCS; 2018-05-09)
PROC: 02HV33Z Insertion of Infusion Device into Superior Vena Cava, Percutaneous Approach (ICD-10-PCS; 2018-05-09)
PROC: 06HM33Z Insertion of Infusion Device into Right Femoral Vein, Percutaneous Approach (ICD-10-PCS; 2018-05-10)
PROC: 5A1D70Z Performance of Urinary Filtration, Intermittent, Less than 6 Hours Per Day (ICD-10-PCS; 2018-05-10)
PROC: 0T9B70Z Drainage of Bladder with Drainage Device, Via Natural or Artificial Opening (ICD-10-PCS; 2018-05-12)
DX: J96.01 Acute respiratory failure with hypoxia (principal); I21.4 Non-ST elevation (NSTEMI) myocardial infarction; I46.9 Cardiac arrest, cause unspecified; N17.0 Acute kidney failure with tubular necrosis; R57.9 Shock, unspecified; D69.6 Thrombocytopenia, unspecified; E87.5 Hyperkalemia; G93.1 Anoxic brain damage, not elsewhere classified; E87.4 Mixed disorder of acid-base balance; J96.02 Acute respiratory failure with hypercapnia; R56.9 Unspecified convulsions; I50.9 Heart failure, unspecified; F02.80 Dementia in other diseases classified elsewhere, unspecified severity, without behavioral disturbance, psychotic disturbance, mood disturbance, and anxiety; G62.9 Polyneuropathy, unspecified; I45.10 Unspecified right bundle-branch block; R40.2432 Glasgow coma scale score 3-8, at arrival to emergency department; M06.9 Rheumatoid arthritis, unspecified; G47.00 Insomnia, unspecified; H40.9 Unspecified glaucoma; E78.5 Hyperlipidemia, unspecified; D72.829 Elevated white blood cell count, unspecified; G30.9 Alzheimer's disease, unspecified; Z51.5 Encounter for palliative care; Z88.0 Allergy status to penicillin
CPT/HCPCS: 31500; 36556; 36600; 43753; 51702; 70450; 70551; 71045; 74176; 76937; 80048; 80053; 80074; 80185; 80202; 80307; 81001; 82550; 82552; 82805; 82948; 83605; 83690; 83735; 83880; 84100; 84155; 84443; 84484; 85007; 85025; 85027; 85610; 85730; 87040; 87070; 87205; 90935; 93005; 93306; 94002; 94003; 94640; 94664; 95819; 95953; 96365; 96368; 96374; 96375; J0171; J0610; J1170; J1265; J1580; J1644; J1720; J1815; J1817; J1940; J1953; J1980; J2060; J2150; J2250; J3370; J3475; J7030; J7040; J7060; J7070; P9047; Q2009